=== PATIENT | female | born 1940 | race Caucasian/White ===

== ENCOUNTER 2021-04-20 10:30 | Inpatient (IN) | payer MEDICARE ==
[~2021-04-20] VITALS: Ht 167.7 cm; Wt 98.8 kg
[2021-04-20 10:30] VITALS: BP 117/82
[~2021-04-20 10:30] MED LIST: ALPRAZolam 0.25 MG (XANAX) TAB PO PRN; BISACODYL 10 MG SUPP (DULCOLAX) PR PRN; CALCIUM CARBONATE 500 MG (TUMS) TAB.CHEW PO PRN; DOCUSATE SODIUM 100 MG (COLACE) CAP PO PRN; FLEET ENEMA ADULT 1 EA BTL PR PRN; LACTULOSE SYRUP 10GM/15ML (ENULOSE) 30ML UDC PO PRN; LOPERAMIDE 2 MG (IMODIUM) TABLET PO PRN; MELATONIN 3 MG TABLET PO PRN; NALOXONE 0.4 MG/ML 1 ML (NARCAN) VIAL IV PRN; ONDANSETRON 4 MG (ZOFRAN) ORAL DISSOLVE TAB PO PRN; diphenhydrAMINE 25 MG TAB (BENADRYL) PO PRN; guaiFENesin/CODEINE (ROBITUSSIN AC) 10ML UDC PO PRN
[2021-04-20] MEDS: DOCUSATE SODIUM 100 MG (COLACE) CAP PO SCH ×2 (10:50→21:06)
[2021-04-20] MEDS: polyethylene glycoL POWDER 17 GM (MIRALAX) PACK PO SCH ×2 (10:50→21:08)
[2021-04-20] MEDS: SENNA W/DOCUSATE (SENOKOT S) TABLET PO SCH ×2 (10:51→21:06)
[2021-04-20] MEDS ORDERED: ATOR20TA66 PO (10:52)
[2021-04-20] MEDS ORDERED: INSU100V SQ (10:52)
[2021-04-20] MEDS ORDERED: WRF2.5T PO (10:52)
[2021-04-20] MEDS ORDERED: ALLO100T PO (10:52)
[2021-04-20] MEDS ORDERED: DILT120C82 PO (10:52)
[2021-04-20] MEDS ORDERED: ATEN25TA PO (10:52)
[2021-04-20] MEDS ORDERED: PIOG30TA38 PO (10:52)
[2021-04-20] MEDS ORDERED: MULT-166 PO (10:52)
--- NOTE | 2021-04-20 11:09 | PM&R Post Admission Assessment ---
PM&R Date of Visit: Apr 20, 2021 Time of Visit: 11:30 History of Present Illness CC: Critical illness myopathy HPI: This is an 80yoWF clinic Pt of Dr. Díaz and cardiology Dr. De who has a history of AFIB s/p gastrointestinal emergent surgery for perforated ulcer on 02/26/2021 at [facility] then transferred to [facility] due to slow recovery and now is requiring extensive rehab in order to return back to [facility]. I consulted Dr. Marshall for AFIB. She remains on Coumadin, her INR is 1.5 and I have consulted, Dr. Gamez since she still has a ADAIR drain and will need assistance with that. She does have a Cotto catheter DC right before arrival and if she cannot void we will consult urology. Past Dpexoev-Yfjqdz-Qrfakw Hx Past Med/Social Hx: Reviewed Nursing Past Med/Soc Hx, Reviewed and Corrections made Patient Social History Marrital Status: single Employed/Student: retired Alcohol Use: Denies Use Smoking Status: Former Smoker Past Medical History Surgeries: Abdominal Cardiac: Atrial Fibrillation, High Cholesterol, Hypertension Neurological: Neuropathy Gastrointestinal: Gastroesophageal Reflux Perforated ulcer Musculoskeletal: Arthritis, Chronic Back Pain, Gout Endocrine: Diabetes, Non-Insulin dep PM&R Allergy/Meds/Data Review Allergies Coded Allergies: Penicillins (Verified Allergy, Unknown, 04/20/21) Sulfa (Sulfonamide Antibiotics) (Verified Allergy, Unknown, 04/20/21) iodine (Verified Allergy, Unknown, 04/20/21) povidone-iodine (Verified Allergy, Unknown, 04/20/21) Home Medications Scheduled Allopurinol (Allopurinol), 100 MG PO DAILY, (Reported) Atenolol (Atenolol), 25 MG PO BID, (Reported) Atorvastatin Calcium (Atorvastatin Calcium), 20 MG PO HS, (Reported) Diltiazem HCl (Cardizem Cd), 120 MG PO DAILY, (Reported) Insulin Lispro (Humalog), UNIT SQ DAILY, (Reported) Multivitamin with Minerals (Multivitamins with Minerals), 1 EACH PO DAILY, (Reported) Pioglitazone HCl (Actos), 30 MG PO DAILY, (Reported) Warfarin Sodium (Warfarin Sodium), 2.5 MG PO 1700, (Reported) Current Medications Current Medications Reviewed Review of Systems Constitutional: see HPI, malaise, weakness EENTM: no symptoms reported Respiratory: dyspnea on exertion Cardiovascular: palpitations Gastrointestinal: abdominal pain, loss of appetite, nausea, vomiting Genitourinary: no symptoms reported Musculoskeletal: back pain, joint pain Skin: no symptoms reported Psychiatric/Neurological: Depressed All Other Systems Reviewed Negative Unless Noted: Yes Physical Exam Physical Exam Vital Signs Vital Signs - First Documented 04/20/21 10:30 Temp 36.1 Pulse 104 Resp 18 B/P (MAP) 117/82 (94) Pulse Ox 94 O2 Delivery Nasal Cannula O2 Flow Rate 0.50 Capillary Refill : Height, Weight, BMI Height: '" Weight: lbs. oz. kg; BMI Method: General Appearance: No Apparent Distress, WD/WN, Chronically ill Eyes: Bilateral Eye Normal Inspection, Bilateral Eye PERRL HEENT: PERRL/EOMI, Normal ENT Inspection, Pharynx Normal Neck: Full Range of Motion, Normal Inspection, Non Tender, Supple, Carotid Bruit Respiratory: Chest Non Tender, Lungs Clear, No Accessory Muscle Use, No Respiratory Distress, Decreased Breath Sounds Cardiovascular: No Edema, No Gallop, No JVD, No Murmur, Normal Peripheral Pulses, Irregularly Irregular, Tachycardia Gastrointestinal: Normal Bowel Sounds, No Organomegaly, No Pulsatile Mass, Soft, Tenderness Back: Normal Inspection, No CVA Tenderness, No Vertebral Tenderness Extremity: Normal Capillary Refill, Normal Inspection, Normal Range of Motion, Non Tender, No Calf Tenderness, No Pedal Edema Neurologic/Psychiatric: Alert, Oriented x3, No Motor/Sensory Deficits, Normal Mood/Affect, Abnormal Gait (Unable to ambulate), Motor Weakness (Generalized) Skin: Normal Color, Warm/Dry Lymphatic: No Adenopathy PM&R Medical Assessment & Plan REHAB/MEDICAL ASSESSMENT AND PLAN: REHAB IMPAIRMENT GROUP: Critical illness myopathy ETIOLOGIC DIAGNOSIS: Critical illness myopathy The comorbidities that impact the patients function and/or functional outcome by: Advanced age, atrial fibrillation not rate controlled, urinary retention REHAB PLAN: The patient is being admitted to our comprehensive inpatient rehabilitation facility and can tolerate the intensity of service consisting of at least: 180 minutes of therapy a day, 5 out of 7 days a week Rehab treatment will consist of: PT and OT will focus on regaining function with assistive devices in order to return to independent living with family The patient/family has a good understanding of our discharge process and will benefit from an interdisciplinary inpatient rehabilitation program. The patient has potential to make improvement and is in need of at least two of the following multidisciplinary therapies including but not limited to physical, occupational, speech, and prosthetics and orthotics. Additionally the patient will need services from respiratory, nutritional services, wound care, psychology, etc. (Customize this to each patient). Given the patients complex condition and risk of further medical complications, rehabilitation services cannot be safely or effectively provided at a lower level of care such as a halfway facility. BARRIERS TO DISCHARGE: Advanced age ESTIMATED LOS: 14 days DISPOSITION: Home RELEVANT CHANGES SINCE PREADMISSION SCREENING: I have compared the patients medical and functional status at the time of the preadmission screening and there are: No changes PROGNOSIS: Guarded REHABILITATION GOALS: 1. PT and OT will focus on regaining function with assistive devices in order to return to independent living with family All the above goals were reviewed with the patient and he/she is in agreement. By signing this document, I acknowledge that I have personally performed a full physical examination on this patient within 24 hours of admission to this inpatient rehabilitation facility and have determined the patient to be able to tolerate the above course of treatment at an intensive level for a reasonable period of time. I will be completing a detailed individualized Plan of Care for this patient by day #4 of the patients stay based upon the Preadmission Screen, the Post-Admission Evaluation, and the therapy evaluations. Admission Dx/Comorbidities: (1) Gastric ulcer with perforation ICD Codes: K25.5 - Chronic or unspecified gastric ulcer with perforation (2) Atrial fibrillation ICD Codes: I48.91 - Unspecified atrial fibrillation (3) Warfarin anticoagulation ICD Codes: Z79.01 - terminal gauger (current) use of anticoagulants (4) Urinary retention ICD Codes: R33.9 - Retention of urine, unspecified (5) Diabetes ICD Codes: E11.9 - Type 2 diabetes mellitus without complications (6) Myopathy ICD Codes: G72.9 - Myopathy, unspecified Assessment/Plan Assessment and Plan Assess & Plan/Chief Complaint Assessment: Critical illness myopathy Chronic atrial fibrillation not rate controlled consulting Dr. Marshall Urinary retention likely requiring urology consult if cannot void since Cotto catheter DC at [facility] ADAIR drain in place consulting Dr. Gamez Subtherapeutic INR 1.5 Coumadin anticoagulation Plan: Supportive care Rehab protocol Consult Dr. Gamez Consult Dr. Marshall Consult JARON Mckeon DO Apr 20, 2021 11:09
--- NOTE | 2021-04-20 12:52 | Physical Therapy Evaluation ---
PT Evaluation-General Medical Diagnosis Admission Date Apr 20, 2021 at 10:30 Medical Diagnosis: perforated gastric ulcer Onset Date: Feb 26, 2021 Therapy Diagnosis Therapy Diagnosis: impaired mobility, strength, endurance Precautions Precautions/Isolations: Fall Prevention, Standard Precautions, Pressure Ulcer Referral Physician: Shanna Fairchild DO Reason for Referral: Evaluation/Treatment Medical History Pertinent Medical History: Atrial Fib, Arthritis, DM, HTN, Renal Insufficiency Additional Medical History HLP, back surgery, cardioversion Current History 02/26/21 admitted to OSH with abdominal pain, found to have perforated gastric ulcer, repair of ulcer same day. Pt noted to have afib with RVR. 03/02 gastrograffin test showed anastamotic leak. Pt NPO and TPN with continued leak. Serial CTs performed and leak closed. Regular diet resumed and TPN discontinued. Hospital course c/b yeast UTI. Pt transferred to LTAC for therapy services. Pt then transferred to [facility] 04/20/21 for continued skilled therapies and medication management. Reviewed History: Yes Social History Home: Single Level Current Living Status: Children Entry Into Home: Stairs Without Railing PT Steps Into Home: 2 PT Steps Inside Home: 2 Prior Prior Level of Function SCALE: Activities may be completed with or without assistive devices. 3-Ecywfaomcm-wwvfhch completes the activity by him/herself with no assistance from a helper. 5-Set-up or Clean-up Assistance-helper sets up or cleans up; patient completes activity. [place] assists only prior to or following the activity. 4-Supervision or Touching Assistance-helper provides verbal cues and/or touching/steadying and/or contact guard assistance as patient completes activity. Assistance may be provided throughout the activity or intermittently. 3-Partial/Moderate Assistance-helper does LESS THAN HALF the effort. [place] lifts, holds or supports trunk or limbs, but provides less than half the effort. 2-Substantial/Maximal Assistance-helper does MORE THAN HALF the effort. [place] lifts or holds trunk or limbs and provides more than half the effort. 8-Tgobxnlhj-jylgqh does ALL the effort. Patient does none of the effort to complete the activity. Or, the assistance of 2 or more helpers is required for the patient to complete the activity. If activity was not attempted, code reason: 7-Patient Refused. 9-Not Applicable-not attempted and the patient did not perform the activity before the current illness, exacerbation or injury. 10-Not Attempted due to Environmental Limitations-(lack of equipment, weather restraints, etc.). 88-Not Attempted due to Medical Conditions or Safety Concerns. Bed Mobility: 6 Transfers (B,C,W/C): 6 Gait: 6 Stairs: 6 Indoor Mobility (Ambulation): Independent Stairs: Independent used a 4-wheeled walker PT Evaluation-Current Subjective Patient in recliner pre tx, agrees to PT, has no pain at rest. Will be co- treating with OT due to poor patient mobility, strength, endurance, knee buckling, coordinate UE and LE during activity, safety and reduce risk of falls. Pt/Family Goals to be independent at home Objective Patient Orientation: Person, Place, Situation Attachments: Oxygen, Drains ROM/Strength ROM Lower Extremities WNL Strength Lower Extremities LLE (hip flexion 3/5, knee flexion 3+/5, knee extension 3+/5, dorsiflexion 3+/5), RLE (hip flexion 3+/5, knee flexion 4/5, knee extension 4/5, dorsiflexion 4/5) Sensory Vision: Functional Hearing: Functional Sensation Right Lower Extremit: Impaired Sensation Left Lower Extremity: Impaired Transfers Roll Left & Right (QC): 4 Sit to Lying (QC): 3 Lying to Sitting/Side of Bed(Q: 3 Sit to Stand (QC): 2 Chair/Wxz-li-Ugmia Xfer(QC): 4 Toilet Transfer (QC): 4 Car Transfer (QC): 88 Patient performs rolling with SBA, supine <-> sit min assist, sit <-> stand max assist, transfers CGA, patient is not safe to perform a car transfer at this time. Patient needs frequent cues for hand placement and safety. She has poor trunk strength and slumps, especially with sit <-> stand. Gait Does the Patient Walk?: Yes Mode of Locomotion: Walk Anticipated Mode of Locomotion: Walk Walk 10 feet (QC): 3 Walk 50 ft with 2 Turns(QC): 88 Walk 150 ft (QC): 88 Walking 10ft/uneven surface-QC: 88 Distance: 10' Gait Assistive Device: FWW Comments/Gait Description Patient can ambulate 10' with a rolling walker with min assist. She has slumped posture, very slow ambulation, knees on the verge of buckling, WC follow. Wheelchair Training Does the Pt Use a Wheelchair?: Yes Distance: 100' Wheel 50 ft with 2 turns (QC): 3 Wheel 150 ft (QC): 88 Type of Wheelchair: Manual Stairs 1 Step (curb) (QC): 88 4 Steps (QC): 88 12 Steps (QC): 88 Balance Sitting Static: Normal Sitting Dynamic: Normal Standing Static: Poor Standing Dynamic: Poor Picking up an Object (QC): 88 Treatment PT performed bed mobility and transfers, ambulation, WC mobility, standing and safety during toileting and bathing and dressing and ADL's, OT performed dressing, toileting, bathing, ADL', UE positioning and safety during activity Assessment/Needs Patient in recliner post tx with nurse call, phone, tray, all needs met. Patient has impaired mobility, strength, endurance. Patient needs max assist for sit to stand but can perform a transfer with CGA using a rolling walker after that. Rehab Potential: Fair PT Short Term Goals Short Term Goals Time Frame: Apr 27, 2021 Roll Left & Right: 6 Sit to lyin Lying to sitting on side of be: 4 Sit to stand: 3 Chair/piy-di-eshpf transfer: 4 Walk 10 feet: 4 Walk 50 feet with two turns: 3 PT Senior Living Goals Desktop Support Specialist Goals PT Desktop Support Specialist Goals Time Frame: May 11, 2021 Roll Left & Right (QC): 6 Sit to Lying (QC): 4 Lying-Sitting on Side/Bed(QC): 5 Sit to Stand (QC): 4 Chair/Mii-fn-Wdpxt Xfer(QC): 5 Toilet Transfer (QC): 5 Car Transfer (QC): 4 Does the Patient Walk: Yes Walk 10 feet (QC): 4 Walk 50ft with 2 Turns (QC): 4 Walk 150 ft (QC): 4 Walking 10ft on Uneven Surface: 4 1 Step (curb) (QC): 4 4 Steps (QC): 4 12 Steps (QC): 88 Picking up an Object (QC): 4 Wheel 50 feet with 2 turns (QC: 9 Wheel 150 feet: 9 PT Plan Problem List Problem List: Activity Tolerance, Functional Strength, Safety, Balance, Gait, Transfer, Bed Mobility, ROM Treatment/Plan Treatment Plan: Continue Plan of Care Treatment Plan: Bed Mobility, Education, Functional Activity Karley, Functional Strength, Group Therapy, Gait, Safety, Therapeutic Exercise, Transfers Treatment Duration: May 11, 2021 Frequency: At least 5 of 7 days/Wk (IRF) Estimated Hrs Per Day: 1.5 hours per day Patient and/or Family Agrees t: Yes Safety Risks/Education Patient Education: Gait Training, Transfer Techniques, Correct Positioning, W/C Management, Safety Issues Teaching Recipient: Patient Teaching Methods: Demonstration, Discussion Response to Teaching: Reinforcement Needed Discharge Recommendations Plan Patient will perform bed mobility and transfer training, balance and endurance training, functional strengthening, stair training, gait training, and education to improve functional mobility and independence at home. Therapy Discharge Recommendati: Scheduled Assistance, Home & Family, Post Acute PT Time/GCodes Time In: 1050 Time Out: 1200 Total Billed Treatment Time: 70 Total Billed Treatment 1 visit EVM 10' FA 60' PT eval from [id number], co-treat from [id number] WALLACE ROD PT Apr 20, 2021 12:52
--- NOTE | 2021-04-20 12:55 | Occupational Therapy Eval ---
OT Evaluation-General/PLF Medical Diagnosis Admission Date Apr 20, 2021 at 10:30 Medical Diagnosis: disuse myopathy Onset Date: Feb 26, 2021 Therapy Diagnosis Therapy Diagnosis: decreased ADL status, weakness Precautions Precautions/Isolations: Fall Prevention, Standard Precautions, Pressure Ulcer Referral Physician: Devorah Cruz Reason: Evaluation/Treatment Medical History Pertinent Medical History: Atrial Fib, Arthritis, DM, HTN, Renal Insufficiency Additional Medical History HLP, back surgery, cardioversion Current History 02/26/21 admitted to OSH with abdominal pain, found to have perforated gastric ulcer, repair of ulcer same day. Pt noted to have afib with RVR. 03/02 gastrograffin test showed anastamotic leak. Pt NPO and TPN with continued leak. Serial CTs performed and leak closed. Regular diet resumed and TPN discontinued. Hospital course c/b yeast UTI. Pt transferred to LTAC for therapy services. Pt then transferred to [facility] 04/20/21 for continued skilled therapies and medication management. Social History Home: Single Level Current Living Status: Children (daughter and son in law & their kids.) Steps Into Home: 2 Steps Inside Home: 2 ADL-Prior Level of Function SCALE: Activities may be completed with or without assistive devices. 5-Hagnttdeyb-vwhtheh completes the activity by him/herself with no assistance from a helper. 5-Set-up or Clean-up Assistance-helper sets up or cleans up; patient completes activity. [place] assists only prior to or following the activity. 4-Supervision or Touching Assistance-helper provides verbal cues and/or touching/steadying and/or contact guard assistance as patient completes activity. Assistance may be provided throughout the activity or intermittently. 3-Partial/Moderate Assistance-helper does LESS THAN HALF the effort. [place] lifts, holds or supports trunk or limbs, but provides less than half the effort. 2-Substantial/Maximal Assistance-helper does MORE THAN HALF the effort. [place] lifts or holds trunk or limbs and provides more than half the effort. 9-Ptsjifqyv-dulsqa does ALL the effort. Patient does none of the effort to complete the activity. Or, the assistance of 2 or more helpers is required for the patient to complete the activity. If activity was not attempted, code reason: 7-Patient Refused. 9-Not Applicable-not attempted and the patient did not perform the activity before the current illness, exacerbation or injury. 10-Not Attempted due to Environmental Limitations-(lack of equipment, weather restraints, etc.). 88-Not Attempted due to Medical Conditions or Safety Concerns. ADL PLOF Comments Pt states she was independent with ADLs and functional mobility at [facility], using 4WW. Upon further discussion, pt reports she was unable to don/doff socks, and sometimes required assistance with shoes. Pt able to bathe independently, in order to wash her feet, she put a soapy washcloth on the floor of the shower and rubbed her feet over the washcloth. She reports she was able to dress and toilet herself. She just received a manual w/c, has only sat in it a couple of times for a few seconds each time. Pt states this w/c is too wide to get through her doors and she would like to exchange it for a narrower w/c. She has a walk in shower with a SC, she reports the shower leaks and they are in the process of getting this fixed/replacing the shower. Self Care: Needed Some Help Functional Cognition: Independent DME/Equipment: Bath Chair, Shower DME/Equipment Comments 4WW, manual w/c (wide) OT Current Status Subjective Pt arrived via w/c transport to floor, pt agreeable to OT tx. Mental Status/Objective Patient Orientation: Person, Place, Situation Attachments: Drains, Oxygen (0.5 L NC) Current Glasses/Contacts: Yes Hearing Aids: No Dentures/Partials: No Hand Dominance: Right Upper Extremity ROM Decreased shoulder ROM Bilaterally. RUE shoulder flexion to approx 30 degrees, LUE shoulder flexion to approx 10 degrees. Pt correlates decreased motion with arthritis. WFL at elbows/wrists/hands. Upper Extremity Strength grossly 3/5 ADL-Treatment Eating (QC): 5 (Set up assist per pt report.) Oral Hygiene (QC): 6 (IND seated at sink.) Shower/Bathe Self (QC): 2 (Pt able to wash BUEs, chest/abdomen, thighs. Required assistance with buttocks, periarea, and BLE lower legs/feet.) Upper Body Dressing (QC): 4 (SBA, pt able to don/doff toe puller night gown with increased time.) Lower Body Dressing (QC): 2 (Pt able to thread brief over toes on RLE, assist to thread past heel. Assist to thread LLE and assist with pant hike. Max A sit to stand for pant hike.) On/Off Footwear (QC): 1 (assist donning/doffing socks and shoes.) Toileting Hygiene (QC): 1 (assist with all parts.) Other Treatments Pt arrived to floor via w/c transport. Performed SPT from w/c to recliner, max A sit to stand, then CGA once in standing. OT educated pt on purpose and benefit of OT, then pt provided information about PLOF and home set up. OT/PT cotreat due to skill of 2 clinicians required which a tablet technician could not perform in order to coordinate UE/LEs, decrease fall risk, and due to pt's limitations in strength, mobility, transfers, and activity tolerance. OT focused on UE placement, cues for sequencing and safety, and ADLs, PT focused on LE placement, gross overall movement, and transfers/mobility. Pt stood from recliner, used FWW to ambulate towards doorway, pt states she is too fatigued to make it to the door, only able to make it to the foot of the bed before sitting in w/c. Pt propelled w/c to therapy gym, with assistance. Pt completed functional transfers in gym on/off therapy mat and supine <-> sit. Pt returned to her room, completed sponge bath and dressing at sink. Once standing to wash buttocks, pt requests BSC. W/C removed from underneath pt and replaced with commode, pt sat on commode to complete toileting. Pt stood for hygiene and to manage pants up, commode switched out for w/c. Pt sat at sink for oral care, then used FWW to transfer to recliner. PT left tx at this time. OT educated pt on rehab process and expectations, explained the dietary menu, and positioned pt to comfort. Post tx, pt in recliner, call light in reach and all needs met. SBA rolling, min A supine <-> sit, max A sit <-> stand, CGA transfers. Patient needs frequent cues for hand placement and safety. She has poor trunk strength and slumps, especially with sit <-> stand. Education OT Patient Education: Correct positioning, Energy conservation, Exercise program, Modified ADL techniques, Progress toward Goal/Update tx plan, Purpose of tx/functional activities, Rehab process Teaching Recipient: Patient Teaching Methods: Discussion OT Short Term Goals Short Term Goals Time Frame: May 05, 2021 Toileting hygiene: 3 Shower/bathe self: 3 Lower body dressin Putting on/taking off footwear: 3 OT Retirement Goals Cloth Desizing Range Operator Chief Goals Time Frame: May 14, 2021 Eating (QC): 6 Oral Hygiene (QC): 6 Toileting Hygiene (QC): 6 Shower/Bathe Self (QC): 5 Upper Body Dressing (QC): 5 Lower Body Dressing (QC): 4 On/Off Footwear (QC): 4 Additional Goals: 1-Demonstrate ADL Tasks, 2-Verbalize Understanding, 3- ImproveStrength/Karley 1=Demonstrate adherence to instructed precautions during ADL tasks. 2=Patient will verbalize/demonstrate understanding of assistive devices/modifications for ADL. 3=Patient will improve strength/tolerance for activity to enable patient to perform ADL's. OT Education/Plan Problem List/Assessment Assessment: Decreased Activ Tolerance, Decreased UE Strength, Impaired Funct Balance, Impaired I ADL's, Impaired Self-Care Skills, Restricted Funct UE ROM Discharge Recommendations Plan/Recommendations: Continue POC Treatment Plan/Plan of Care Patient would benefit from OT for education, treatment and training to promote independence in ADL's, mobility, safety and/or upper extremity function for ADL's. Plan of Care: ADL Retraining, Functional Mobility, Group Exercise/Act as Ind, UE Funct Exercise/Act Treatment Duration: May 14, 2021 Frequency: At least 5 of 7 days/Wk (IRF) Estimated Hrs Per Day: 1.5 hours per day Agreement: Yes Rehab Potential: Fair Time/GCodes Start Time: 10:30 Stop Time: 12:10 Total Time Billed (hr/min): 90 Billed Treatment Time [id number] OT evaluation/tx, 9900-2590 PT eval (not billed), [id number] OT/PT cotreat, 1371-0028 OT tx 1, EVM (10'), FA 2 (30'), ADL 3 (50') VANNESA PATEL OT Apr 20, 2021 12:55
[2021-04-20] MEDS ORDERED: dilTIAZem120 MG (CARDIZEM CD) CAP PO SCH (13:15)
--- NOTE | 2021-04-20 13:22 | Physical Therapy Daily Note ---
PT Daily Note-Current Subjective Pt. very talkative. Explains her recent medical crisis. Feeling well today. Agrees to therex Pain Location: No Pain Reported Mental Status Patient Orientation: Person, Place, Time, Situation Attachments: Oxygen Transfers SCALE: Activities may be completed with or without assistive devices. 3-Oanlgoiimh-hmbudvv completes the activity by him/herself with no assistance from a helper. 5-Set-up or Clean-up Assistance-helper sets up or cleans up; patient completes activity. [place] assists only prior to or following the activity. 4-Supervision or Touching Assistance-helper provides verbal cues and/or touching/steadying and/or contact guard assistance as patient completes activity. Assistance may be provided throughout the activity or intermittently. 3-Partial/Moderate Assistance-helper does LESS THAN HALF the effort. [place] lifts, holds or supports trunk or limbs, but provides less than half the effort. 2-Substantial/Maximal Assistance-helper does MORE THAN HALF the effort. [place] lifts or holds trunk or limbs and provides more than half the effort. 2-Ctczydlha-ucrtgg does ALL the effort. Patient does none of the effort to complete the activity. Or, the assistance of 2 or more helpers is required for the patient to complete the activity. If activity was not attempted, code reason: 7-Patient Refused. 9-Not Applicable-not attempted and the patient did not perform the activity before the current illness, exacerbation or injury. 10-Not Attempted due to Environmental Limitations-(lack of equipment, weather restraints, etc.). 88-Not Attempted due to Medical Conditions or Safety Concerns. pt. scooted self up in recliner with head reclined fully pushing with LEs Exercises Supine Ex: Bridging, Ankle pumps, Quad Set, Glut sets, Heel Slides, Scooting, Straight leg raise (asssited), Hip abd/add Supine Reps: 15 Assessment Current Status: Good Progress gives full effort , friendly and talkative PT Short Term Goals Short Term Goals Time Frame: Apr 27, 2021 Roll Left & Right: 6 Sit to lyin Lying to sitting on side of be: 4 Sit to stand: 3 Chair/jhz-me-vsqql transfer: 4 Walk 10 feet: 4 Walk 50 feet with two turns: 3 PT Rose Grader Goals Rose Grader Goals PT Detention Goals Time Frame: May 11, 2021 Roll Left & Right (QC): 6 Sit to Lying (QC): 4 Lying-Sitting on Side/Bed(QC): 5 Sit to Stand (QC): 4 Chair/Tyx-be-Wwfsb Xfer(QC): 5 Toilet Transfer (QC): 5 Car Transfer (QC): 4 Does the Patient Walk: Yes Walk 10 feet (QC): 4 Walk 50ft with 2 Turns (QC): 4 Walk 150 ft (QC): 4 Walking 10ft on Uneven Surface: 4 1 Step (curb) (QC): 4 4 Steps (QC): 4 12 Steps (QC): 88 Picking up an Object (QC): 4 Wheel 50 feet with 2 turns (QC: 9 Wheel 150 feet: 9 PT Plan Treatment/Plan Treatment Plan: Continue Plan of Care Treatment Plan: Bed Mobility, Education, Functional Activity Karley, Functional Strength, Group Therapy, Gait, Safety, Therapeutic Exercise, Transfers Treatment Duration: May 11, 2021 Frequency: At least 5 of 7 days/Wk (IRF) Estimated Hrs Per Day: 1.5 hours per day Patient and/or Family Agrees t: Yes Safety Risks/Education Patient Education: Correct Positioning, Disease Process Teaching Recipient: Patient Teaching Methods: Discussion Time/GCodes Time In: 1305 Time Out: 1325 Total Billed Treatment Time: 20 Total Billed Treatment 1,EX20m SUMAYA FLORES RN GYN Apr 20, 2021 13:21
--- NOTE | 2021-04-20 14:00 | Progress Note ---
CHEIKH SMITH MED STUDENT 04/20/21 1400: Progress Note CC- S/P abdominal surgery/Rehab Mrs Garcia is an 80yo female that was transferred to the rehab unit today from [facility] in [place]. She states that on 9 she had to have surgery to repair a perforated ulcer in her stomach. She states that the recovery process was very complicated for her. She has been doing rehab in [place] was was transferred to [facility] today to get more vigorous rehab. She states that rehab has been going well for her, she has been gaining strength and can tell she has improved. She guesses she is probably about at 1/3 of her strength before the surgery. She denies any problems with eating. She does state that she is somewhat prone to constipation and had to have manual disimpaction with enema at the previous facility. She states that she has been taking stool softeners and prune juice, which has helped and she has not had an issue since. LBM this morning. She denies any pains or associated symptoms today, states her surgical wounds are healing well. She states she is just ready to get though rehab so she can go home. She lives at home with her daughter and son in law. They can help take care of her but they are gone quite often. She does not have any home health. She gets around her home with a walker with a seat. She does not use oxygen at home. She dose not have any concerns or questions today. Medical Hx- States she is a diabetic and is in peristant afib Surgical Hx- 2x Perforated ulcer repair, L leg screws, 2 Lower back surgeries, tonsils Social-Not a smoker, rarely drinks a beer, no street drugs Allergies-Iodine, penecillin Vitals: Temp 31.6c Pulse 104 Blood Pressure 117/82 Pulse Ox 94 on 0.5 L Nasal Cannula No labs or imaging results available Physical Exam General appearance is an elderly woman sitting up in her chair. She appears to be in good spirits and is in no distress. Very pleasant. She has moist mucus membranes. Auscultation of lungs is clear breath sounds bilateraly with no wheezing or other abnormal sounds. Heart sounds regular rate and rythym with no murmurs. No chest wall tenderness. Abdomen is soft and nontender with normal bowel sounds throughout, healing scars from surgery. Normal pulses on all 4 extremities. Slight 1+ edema of legs. She does not have any other rashes. She is alert and oriented x3. A/P S/P Perforated ulcer repair/Rehab -Continue rehab, PT,OT, -Labs if indicated -Social work may be required if patient needs additional help at home at time of release -Watch surgical wounds to ensure that there is no sign of infection or other problems -Stool softener and Prune juice to help prevent constipation -Patient has no other concerns -Continue regular medications Supervisory-Addendum Brief Verification & Attestation Participated in pt care: history, physical Personally performed: exam, history Care discussed with: Medical Student Procedures: n/a n/a SHANNA BRANNON DO 04/21/21 0616: Progress Note Verification and Attestation of Medical Student E/M Service A medical student performed and documented this service in my presence. I reviewed and verified all information documented by the medical student and made modifications to such information, when appropriate. I personally performed the physical exam and medical decision making. Shanna Brannon, Apr 21, 2021,06:16 CHEIKH SMITH MED STUDENT Apr 20, 2021 14:00 SHANNA BRANNON DO Apr 21, 2021 06:16
--- NOTE | 2021-04-20 14:52 | Consultation - Surgery ---
NICOLÁS LEON MED STUDENT 04/20/21 1452: History of Present Illness History of Present Illness Patient Consulted On(jimmy/time) 04/20/21 14:46 Date Seen by Provider: Apr 20, 2021 Time Seen by Provider: 13:30 History of Present Illness This is Zachery a 80 yo female with the chief complaint of diffuse myopathy. Pt presented to inpatient rehab from [facility] today. Surgery was consulted for management of ADAIR drain. She has a perforated gastric ulcer repair on February 26 at [facility]. 2 ADAIR drains were inserted at the end of surgery but the one in the LUQ has since fallen out. Pt denies any issues with the remaining ADAIR drain in RUQ. It continues to drain. The drain was emptied before entering the room but had about 30ml of serous fluid over a half day period. Pt lives at home with her daughters family. Allergies and Home Medications Allergies Coded Allergies: Penicillins (Verified Allergy, Unknown, 04/20/21) Sulfa (Sulfonamide Antibiotics) (Verified Allergy, Unknown, 04/20/21) iodine (Verified Allergy, Unknown, 04/20/21) povidone-iodine (Verified Allergy, Unknown, 04/20/21) Patient Home Medication List Allopurinol (Allopurinol) 100 Mg Tablet, 100 MG PO DAILY, (Reported) Entered as Reported by: BEN ENNIS on 04/20/211051 Last Action: Continued Atenolol (Atenolol) 25 Mg Tablet, 25 MG PO BID, (Reported) Entered as Reported by: BEN ENNIS on 04/20/211051 Last Action: Continued Atorvastatin Calcium (Atorvastatin Calcium) 20 Mg Tablet, 20 MG PO HS, (Reported) Entered as Reported by: BEN ENNIS on 04/20/211051 Last Action: Continued Diltiazem HCl (Cardizem Cd) 120 Mg Cap.er.24h, 120 MG PO DAILY, (Reported) Entered as Reported by: BEN ENNIS on 04/20/211051 Last Action: Continued Insulin Lispro (Humalog) 100 Unit/1 Ml Vial, UNIT SQ DAILY, (Reported) Entered as Reported by: BEN ENNIS on 04/20/211051 Last Action: Held Multivitamin with Minerals (Multivitamins with Minerals) 1 Each Tablet, 1 EACH PO DAILY, (Reported) Entered as Reported by: BEN ENNIS on 04/20/211051 Last Action: Continued Pioglitazone HCl (Actos) 30 Mg Tablet, 30 MG PO DAILY, (Reported) Entered as Reported by: BEN ENNIS on 04/20/211051 Last Action: Continued Warfarin Sodium (Warfarin Sodium) 2.5 Mg Tablet, 2.5 MG PO 1700, (Reported) Entered as Reported by: BEN ENNIS on 04/20/211051 Last Action: Continued Past Cyxmufz-Rquvrk-Pyloir Hx Patient Social History Smoking Status: Never a Smoker 2nd Hand Smoke Exposure: No Recent Hopitalizations: Yes ([facility] to [place]) Alcohol Use?: No Have you traveled recently?: No Immunizations Up To Date Date of Influenza Vaccine: Mar 18, 2021 Surgeries Surgeries: Abdominal (gastric ulcer perforation), Cardiac (converted afib), Orthopedic (left leg fracture with hardware, 2 open spinal surgeries), Tonsillectomy Respiratory History of Respiratory Disorde: No Cardiovascular History of Cardiac Disorders: Yes Cardiac Disorders: Atrial Fibrillation, High Cholesterol Neurological History of Neurological Disord: No Genitourinary History of Genitourinary Disor: No Gastrointestinal History of Gastrointestinal Di: No Musculoskeletal History of Musculoskeletal Dis: Yes Musculoskeletal Disorders: Arthritis, Gout Endocrine History of Endocrine Disorders: Yes Endocrine Disorders: Diabetes, Insulin dep HEENT History of HEENT Disorders: No Loss of Vision: Bilateral Cancer History of Cancer: No Psychosocial History of Psychiatric Problem: No Integumentary History of Skin or Integumenta: No Family Medical History Significant Family History: Cancer (dad), Diabetes (dad and mom) Review of Systems-General Constitutional: chills; No diaphoresis, No fever; weakness; No weight gain, No weight loss EENTM: blurred vision; No double vision, No eye pain, No hoarseness, No mouth pain, No nose pain, No throat pain Respiratory: No cough; dyspnea on exertion; No short of breath Cardiovascular: No chest pain, No edema; Hx of Intervention; No palpitations Gastrointestinal: No abdominal pain, No constipation, No diarrhea, No melena, No nausea, No vomiting; other (history of hemorrhiods ) Genitourinary: No decreased output, No discharge, No dysuria, No frequency, No hematuria, No pain Musculoskeletal: joint pain (left shoulder-chronic) Skin: No change in color, No rash; other Psychiatric/Neurological: Denies Anxiety, Denies Depressed, Denies Emotional Problems, Denies Headache; Weakness Physical Exam-General Problems Physical Exam Vital Signs Vital Signs - First Documented 04/20/21 10:30 Temp 36.1 Pulse 104 Resp 18 B/P (MAP) 117/82 (94) Pulse Ox 94 O2 Delivery Nasal Cannula O2 Flow Rate 0.50 Capillary Refill : General Appearance: no apparent distress HEENT: PERRL/EOMI, pharynx normal Neck: non-tender, supple, normal inspection Respiratory: chest non-tender, lungs clear, normal breath sounds, no respiratory distress, no accessory muscle use Cardiovascular: normal peripheral pulses, no edema, irregularly irregular Gastrointestinal: non tender, soft Rectal: deferred Back: normal inspection, no CVA tenderness, no vertebral tenderness Extremities: normal inspection, no pedal edema, calf tenderness Neurologic/Psychiatric: no motor/sensory deficits, alert, normal mood/affect, oriented x 3 Skin: normal color, warm/dry, other (midline scar from surgical repair as well as scar from ADAIR drain on left side that fell out) Lymphatic: no adenopathy (cervical and supraclavicular) Assessment/Plan Assessment/Plan Assessment/Plan Assessment: functional ADAIR drain in LUQ diffues myopathy chronic right shoulder pain Plan: monitor ADAIR drain for change in content or amount change bandaging and dressing often encourage ambulation ADAM PANDEY DO 04/20/21 2148: History of Present Illness History of Present Illness Time Seen by Provider: 12:31 History of Present Illness Surgery asked to consult regarding drain management, hx of gastric perforation and abdominal dehiscence. Pt is a very pleasant 80 yo female, able to answer all questions. She states she had to "swallow contrast 8 times". Denies drainage from midline, states it still is moist. Allergies and Home Medications Allergies Coded Allergies: Penicillins (Verified Allergy, Unknown, 04/20/21) Sulfa (Sulfonamide Antibiotics) (Verified Allergy, Unknown, 04/20/21) iodine (Verified Allergy, Unknown, 04/20/21) povidone-iodine (Verified Allergy, Unknown, 04/20/21) Patient Home Medication List Home Medication List Reviewed: Yes Allopurinol (Allopurinol) 100 Mg Tablet, 100 MG PO DAILY, (Reported) Entered as Reported by: BEN ENNIS on 04/20/211051 Last Action: Continued Atenolol (Atenolol) 25 Mg Tablet, 25 MG PO BID, (Reported) Entered as Reported by: BEN ENNIS on 04/20/211051 Last Action: Continued Atorvastatin Calcium (Atorvastatin Calcium) 20 Mg Tablet, 20 MG PO HS, (Repo rted) Entered as Reported by: BEN ENNIS on 04/20/211051 Last Action: Continued Diltiazem HCl (Cardizem Cd) 120 Mg Cap.er.24h, 120 MG PO DAILY, (Reported) Entered as Reported by: BEN ENNIS on 04/20/211051 Last Action: Continued Insulin Lispro (Humalog) 100 Unit/1 Ml Vial, UNIT SQ DAILY, (Reported) Entered as Reported by: BEN ENNIS on 04/20/211051 Last Action: Held Multivitamin with Minerals (Multivitamins with Minerals) 1 Each Tablet, 1 EACH PO DAILY, (Reported) Entered as Reported by: BEN ENNIS on 04/20/211051 Last Action: Continued Pioglitazone HCl (Actos) 30 Mg Tablet, 30 MG PO DAILY, (Reported) Entered as Reported by: BEN ENNIS on 04/20/211051 Last Action: Continued Warfarin Sodium (Warfarin Sodium) 2.5 Mg Tablet, 2.5 MG PO 1700, (Reported) Entered as Reported by: BEN ENNIS on 04/20/211051 Last Action: Continued Past Kleljns-Myzlcf-Rltall Hx Patient Social History Smoking Status: Never a Smoker 2nd Hand Smoke Exposure: No Recent Hopitalizations: Yes ([facility] to [place]) Surgeries History of Surgeries: Yes Surgeries: Abdominal (gastric ulcer perforation), Cardiac (converted afib), Orthopedic (left leg fracture with hardware, 2 open spinal surgeries), Tonsillectomy Respiratory History of Respiratory Disorde: No Cardiovascular History of Cardiac Disorders: Yes Cardiac Disorders: Atrial Fibrillation, High Cholesterol Neurological History of Neurological Disord: No Genitourinary History of Genitourinary Disor: No Gastrointestinal History of Gastrointestinal Di: Yes Gastrointestinal Disorders: Gastroesophageal Reflux, Ulcer Musculoskeletal History of Musculoskeletal Dis: Yes Musculoskeletal Disorders: Arthritis, Gout Endocrine History of Endocrine Disorders: Yes Endocrine Disorders: Diabetes, Insulin dep HEENT History of HEENT Disorders: No Loss of Vision: Bilateral Cancer History of Cancer: No Psychosocial History of Psychiatric Problem: No Integumentary History of Skin or Integumenta: No Family Medical History Significant Family History: Cancer (dad), Diabetes (dad and mom) Review of Systems-General Constitutional: chills; No diaphoresis, No fever; weakness EENTM: blurred vision; No double vision, No hoarseness, No mouth pain, No nose pain, No throat pain Respiratory: No cough; dyspnea on exertion; No short of breath Cardiovascular: No chest pain, No edema; Hx of Intervention; No palpitations Gastrointestinal: No abdominal pain, No constipation, No diarrhea, No melena, No nausea, No vomiting Genitourinary: No decreased output, No dysuria, No frequency, No hematuria Musculoskeletal: joint pain (left shoulder-chronic), muscle stiffness Skin: No change in color, No rash Psychiatric/Neurological: Denies Anxiety, Denies Depressed, Denies Emotional Problems, Denies Headache; Weakness Physical Exam-General Problems Physical Exam General Appearance: no apparent distress, thin (chronically ill) Eyes: Bilateral Eye PERRL, Bilateral Eye EOMI HEENT: pharynx normal; No scleral icterus (R), No scleral icterus (L) Neck: supple, normal inspection Respiratory: lungs clear, normal breath sounds, no respiratory distress, no accessory muscle use Cardiovascular: no edema, no murmur, irregularly irregular Gastrointestinal: non tender, soft, other (midline incision has good granulation at skin level, ADAIR drain right flank with serous fluid) Back: no CVA tenderness, no vertebral tenderness Extremities: normal inspection, no pedal edema, calf tenderness Neurologic/Psychiatric: alert, normal mood/affect, oriented x 3 Skin: normal color, warm/dry, other Lymphatic: no adenopathy (cervical and supraclavicular) Assessment/Plan Assessment/Plan Assessment/Plan Assessment: Functional ADAIR drain in LUQ Diffuse myopathy Chronic right shoulder pain Plan: monitor ADAIR drain for change in content or amount, change bandaging and dressing often, encourage ambulation Will try and get old films, op reports to make sure everything is ok. Almost ready to remove ADAIR if it can get to less than 30ml per 24 hours. Supervisory-Addendum Brief Verification & Attestation Participated in pt care: history, MDM, physical Personally performed: exam, history, MDM, supervision of care Care discussed with: Medical Student Procedures: n/a Verification and Attestation of Medical Student E/M Service A medical student performed and documented this service. I then reviewed and verified all information documented by the medical student and made modifications to such information, when appropriate. I personally performed a physical exam, medical decision making and then discussed any differences between the notes and made revisions as necessary to create one note. Adam Pandey , 04/20/21 , 21:57 NICOLÁS LEON MED STUDENT Apr 20, 2021 14:52 ADAM PANDEY DO Apr 20, 2021 21:48
--- NOTE | 2021-04-20 16:42 | Diagnostic Imaging Report ---
INDICATION: Shortness of breath with pleural effusion. Baseline. FINDINGS: Sitting AP and lateral views show moderate bibasilar pleural effusions. There is cardiomegaly. There are increased interstitial markings bilaterally with prominence of pulmonary vasculature. No evidence of pneumothorax. IMPRESSION: Findings are consistent with congestive failure with moderate bilateral pleural effusions. Dictated by: Dictated on workstation # [id number]
--- NOTE | 2021-04-20 16:51 | Consultation-Cardiology ---
HPI-Cardiology Cardiology Consultation Date of Consultation 04/20/21 Date of Admission Time Seen by Provider: 16:46 Indication: Atrial fibrillation HPI 80 years old lady transferred to the acute rehab unit from [facility] in [place], she underwent repair for perforated ulcer, had prolonged recovery, continuous leak from the ulcer, did not require redo surgery. Patient reported that she healed over time. She is doing better but having generalized weakness, reported that she has paroxysmal atrial fibrillation in the past, has been in persistent atrial fibrillation at least for the past year with rate control and Coumadin. Home Medications & Allergies Allergies: Coded Allergies: Penicillins (Verified Allergy, Unknown, 04/20/21) Sulfa (Sulfonamide Antibiotics) (Verified Allergy, Unknown, 04/20/21) iodine (Verified Allergy, Unknown, 04/20/21) povidone-iodine (Verified Allergy, Unknown, 04/20/21) Home Medication List Reviewed: Yes WUO-Tagfqy-Leytab Hx Patient Social History Smoking Status: Never a Smoker 2nd Hand Smoke Exposure: No Recent Hopitalizations: Yes ([facility] to [facility]) Have you traveled recently?: No Alcohol Use?: No Immunizations Up To Date Date of Influenza Vaccine: Mar 18, 2021 Past Medical History Discussed below Family Medical History Significant Family History: Cancer (dad), Diabetes (dad and mom) Family Medical Hx Noncontributory Review of Systems-General Review of Systems Constitutional: see HPI, chills; No diaphoresis, No fever; weakness; No weight gain, No weight loss EENTM: blurred vision; No double vision, No eye pain, No hoarseness, No mouth pain, No nose pain, No throat pain Respiratory: No cough; dyspnea on exertion; No short of breath Cardiovascular: No chest pain, No edema; Hx of Intervention; No palpitations Gastrointestinal: No abdominal pain, No constipation, No diarrhea, No melena, No nausea, No vomiting; other (history of hemorrhiods ) Genitourinary: No decreased output, No discharge, No dysuria, No frequency, No hematuria, No pain Musculoskeletal: joint pain (left shoulder-chronic) Skin: No change in color, No rash; other Psychiatric/Neurological: Denies Anxiety, Denies Depressed, Denies Emotional Problems, Denies Headache; Weakness Physical Exam Physical Exam Vital Signs Vital Signs - First Documented 04/20/21 10:30 Temp 36.1 Pulse 104 Resp 18 B/P (MAP) 117/82 (94) Pulse Ox 94 O2 Delivery Nasal Cannula O2 Flow Rate 0.50 Capillary Refill : Height, Weight, BMI Height: '" Weight: lbs. oz. kg; 28.62 BMI Method: General Appearance: No Apparent Distress, WD/WN Eyes: Bilateral Eye Normal Inspection, Bilateral Eye PERRL, Bilateral Eye EOMI Neck: Normal Inspection Respiratory: Chest Non Tender, No Accessory Muscle Use, No Respiratory Distress Cardiovascular: No Edema, Irregularly Irregular Gastrointestinal: No Pulsatile Mass, Non Tender, Soft Back: No CVA Tenderness Extremity: Normal Inspection, No Pedal Edema Neurologic/Psychiatric: Alert, Oriented x3, No Motor/Sensory Deficits, Normal Mood/Affect Skin: Normal Color, Warm/Dry Lymphatic: No Adenopathy A/P-Cardiology Admission Diagnosis Persistent atrial fibrillation Tachycardia Perforated ulcer Pleural effusion Assessment/Plan Persistent atrial fibrillation, on rate control medication, I will increase Cardizem CD 122 twice daily and evaluate her tolerance and response. Monitor blood pressure. Perforated ulcer, status post repair, had complication post surgery with continuous leak. Currently better. Continue to monitor Left-sided pleural effusion noted incidentally on her echo. I will evaluate chest x-ray PA and lateral Hypertension, continue current medication and monitor blood pressure Generalized weakness, receiving physical therapy. TC TUCKER MD Apr 20, 2021 16:51
[2021-04-20] MEDS: warFARin 2.5 MG (COUMADIN) TAB PO SCH (17:06)
[2021-04-20 20:00] VITALS: BP 116/62
[2021-04-20] MEDS: ATENOLOL 25 MG (TENORMIN) TAB PO SCH (21:07)
[2021-04-21 05:53] LABS: BASOPHILS # (AUTO) 0.1 10^3/uL (0.0-0.1); BASOPHILS % (AUTO) 1 % (0-10); EOSINOPHILS # (AUTO) 0.7 10^3/uL (0.0-0.3); EOSINOPHILS % (AUTO) 12 % (0-10); HEMATOCRIT 30 % (35-52); HEMOGLOBIN 9.3 g/dL (11.5-16.0); LYMPHOCYTES # (AUTO) 0.6 10^3/uL (1.0-4.0); LYMPHOCYTES % (AUTO) 10 % (12-44); MEAN CORPUSCULAR HEMOGLOBIN 22 pg (25-34); MEAN CORPUSCULAR HGB CONC 31 g/dL (32-36); MEAN CORPUSCULAR VOLUME 71 fL (80-99); MONOCYTES # (AUTO) 0.7 10^3/uL (0.0-1.0); MONOCYTES % (AUTO) 11 % (0-12); NEUTROPHILS % (AUTO) 65 % (42-75); PLATELET COUNT 363 10^3/uL (130-400); WHITE BLOOD COUNT 6.2 10^3/uL (4.3-11.0)
[2021-04-21 06:01] LABS: ALBUMIN 2.7 GM/DL (3.2-4.5)
[2021-04-21 06:02] LABS: POTASSIUM 4.1 MMOL/L (3.6-5.0)
[2021-04-21 06:03] LABS: CALCIUM 8.9 MG/DL (8.5-10.1)
[2021-04-21 06:04] LABS: TOTAL PROTEIN 5.9 GM/DL (6.4-8.2)
[2021-04-21 06:05] LABS: INR 1.5 (0.8-1.4); PROTHROMBIN TIME PATIENT 18.5 SEC (12.2-14.7)
[2021-04-21 06:06] LABS: BILIRUBIN,TOTAL 0.6 MG/DL (0.1-1.0)
[2021-04-21 06:08] LABS: CREATININE SERUM 0.99 MG/DL (0.60-1.30)
[2021-04-21] MEDS: MULTIVIT W/MINERALS TAB (THERAGRAN M) PO SCH (06:54)
[2021-04-21 07:29] VITALS: BP 110/60
[2021-04-21] MEDS: PIOGLITAZONE 30MG (ACTOS) TAB PO SCH (07:46)
[2021-04-21] MEDS: DOCUSATE SODIUM 100 MG (COLACE) CAP PO SCH ×2 (07:46→20:40)
[2021-04-21] MEDS: SENNA W/DOCUSATE (SENOKOT S) TABLET PO SCH ×2 (07:46→20:41)
[2021-04-21] MEDS: ALLOPURINOL 100 MG (ZYLOPRIM) TAB PO SCH (07:46)
[2021-04-21] MEDS: polyethylene glycoL POWDER 17 GM (MIRALAX) PACK PO SCH ×3 (07:47→20:41)
[2021-04-21] MEDS: ATENOLOL 25 MG (TENORMIN) TAB PO SCH ×2 (07:47→20:40)
[2021-04-21] MEDS ORDERED: dilTIAZem120 MG (CARDIZEM CD) CAP PO SCH (09:00)
--- NOTE | 2021-04-21 10:04 | Progress Note - Surgery ---
RODOTONY 04/21/21 1004: Subjective Date Seen by a Provider: Apr 21, 2021 Time Seen by a Provider: 07:56 Subjective/Events-last exam When I visited the pt today she was sitting up in chair eating her breakfast. ADAIR drain was empty when I arrived and nursing confirms <30ml serous fluid was c ollected in the last 24hrs. Review of Systems General: No Chills, No Night Sweats, No Fatigue; Appetite HEENT: No Head Aches, No Dysphasia, No Sore Throat Pulmonary: No Dyspnea, No Cough Cardiovascular: No: Chest Pain, Edema, Lt Headedness Gastrointestinal: No: Nausea, Vomiting, Abdominal Pain, Diarrhea Genitourinary: No Dysuria, No Frequency Musculoskeletal: No: neck pain, back pain Neurological: No: Weakness, Numbness, Change in speech, Confusion Objective Exam Vital Signs Date Time Temp Pulse Resp B/P (MAP) Pulse Ox O2 Delivery O2 Flow Rate FiO2 04/21/21 09:14 95 Nasal Cannula 0.50 04/21/21 07:29 36.6 91 18 110/60 (77) 94 Room Air 04/20/21 21:10 94 Nasal Cannula 0.50 04/20/21 20:00 36.6 92 18 116/62 (80) 94 Nasal Cannula 0.50 04/20/21 15:29 107 93 04/20/21 14:33 Nasal Cannula 0.50 04/20/21 10:30 36.1 104 18 117/82 (94) 94 Nasal Cannula 0.50 I & O 04/21/21 07:00 Intake Total 200 ml Output Total 658 ml Balance -458 ml Capillary Refill : General Appearance: No Apparent Distress, WD/WN, Chronically ill HEENT: PERRL/EOMI, Normal ENT Inspection, Pharynx Normal Neck: Full Range of Motion, Normal Inspection, Non Tender, Supple, Carotid Bruit Respiratory: Chest Non Tender, Lungs Clear, No Accessory Muscle Use, No Respiratory Distress, Decreased Breath Sounds Cardiovascular: No Edema, No Gallop, No JVD, No Murmur, Normal Peripheral Pulses, Irregularly Irregular, Tachycardia Gastrointestinal: non tender, soft, other (midline incision has good granulation at skin level, ADAIR drain right flank with serous fluid) Extremity: Normal Capillary Refill, Normal Inspection, Normal Range of Motion, Non Tender, No Calf Tenderness, No Pedal Edema Neurologic/Psychiatric: Alert, Oriented x3, No Motor/Sensory Deficits, Normal Mood/Affect, Abnormal Gait (Unable to ambulate), Motor Weakness (Generalized) Skin: Normal Color, Warm/Dry Lymphatic: No Adenopathy Results Lab Laboratory Tests 04/21/21 05:39: White Blood Count 6.2, Red Blood Count 4.28, Hemoglobin 9.3L, Hematocrit 30L, Mean Corpuscular Volume 71L, Mean Corpuscular Hemoglobin 22L, Mean Corpuscular Hemoglobin Concent 31L, Red Cell Distribution Width 26.5H, Platelet Count 363, Mean Platelet Volume 10.0, Immature Granulocyte % (Auto) 0, Neutrophils (%) (Auto) 65, Lymphocytes (%) (Auto) 10L, Monocytes (%) (Auto) 11, Eosinophils (%) (Auto) 12H, Basophils (%) (Auto) 1, Neutrophils # (Auto) 4.0, Lymphocytes # (Auto) 0.6L, Monocytes # (Auto) 0.7, Eosinophils # (Auto) 0.7H, Basophils # (Auto) 0.1, Immature Granulocyte # (Auto) 0.0, Prothrombin Time 18.5H, INR Comment 1.5H, Sodium Level 137, Potassium Level 4.1, Chloride Level 100, Carbon Dioxide Level 25, Anion Gap 12, Blood Urea Nitrogen 38H, Creatinine 0.99, Estimat Glomerular Filtration Rate 54, BUN/Creatinine Ratio 38, Glucose Level 137H, Calcium Level 8.9, Corrected Calcium 9.9, Total Bilirubin 0.6, Aspartate Amino Transf (AST/SGOT) 19, Alanine Aminotransferase (ALT/SGPT) 10, Alkaline Phosphatase 141H, B-Type Natriuretic Peptide 790.3H, Total Protein 5.9L, Albumin 2.7L Assessment/Plan Assessment/Plan Assessment/Plan Assessment: Functional ADAIR drain in LUQ Diffuse myopathy Chronic right shoulder pain Plan: Remove ADAIR - less than 30ml of serous fluid collected in last 24 hours. ADAM GAMEZ DO 04/21/211906: Subjective Time Seen by a Provider: 13:24 Subjective/Events-last exam Pt seen and examined, no complaints. She is tolerating diet and having BMs. Review of Systems General: No Chills, No Night Sweats HEENT: No Head Aches Pulmonary: No Dyspnea, No Cough Cardiovascular: No: Chest Pain, Edema Gastrointestinal: No: Nausea, Vomiting, Abdominal Pain Objective Exam General Appearance: No Apparent Distress, Chronically ill HEENT: PERRL/EOMI Respiratory: Lungs Clear, No Accessory Muscle Use, No Respiratory Distress, Decreased Breath Sounds Cardiovascular: No Murmur, Irregularly Irregular Gastrointestinal: non tender, soft, other (midline incision has good granulation at skin level, ADAIR drain right flank with serous fluid) Extremity: No Calf Tenderness Neurologic/Psychiatric: Alert, Oriented x3, Abnormal Gait (Unable to ambulate), Motor Weakness (Generalized) Assessment/Plan Assessment/Plan Assessment/Plan Assessment: Functional ADAIR drain in LUQ Diffuse myopathy Chronic right shoulder pain Plan: I reviewed all the notes (in patients chart) from the surgical stay in [place], [place] and the rehab at [facility] in [place]. She had a dehiscence at [facility], but it is not documented anywhere that I could find. Will remove ADAIR, because less than 30ml of serous fluid collected in last 24 hours. Abomen has good granulation and nothing to do, can allow to air dry or use some non- adhesive covering. Nothing surgical needed, will sign off. Supervisory-Addendum Brief Verification & Attestation Participated in pt care: history, MDM, physical Personally performed: exam, history, MDM, supervision of care Care discussed with: Medical Student Procedures: n/a Verification and Attestation of Medical Student E/M Service A medical student performed and documented this service. I then reviewed and verified all information documented by the medical student and made modifications to such information, when appropriate. I personally performed a physical exam, medical decision making and then discussed any differences between the notes and made revisions as necessary to create one note. Adam Gamez , 04/21/21 , 19:08 TONY KOEHLER Apr 21, 2021 10:04 ADAM GAMEZ DO Apr 21, 2021 19:07
--- NOTE | 2021-04-21 10:44 | Cardiology Progress Note ---
Subjective Date Seen by Provider: Apr 21, 2021 Time Seen by Provider: 10:41 Subjective/Events-last exam No new complaints, denies any chest pain, noted to be slightly tachycardic. Review of Systems General: No Chills, No Night Sweats, No Fatigue; Malaise; No Appetite, No Other HEENT: No Head Aches, No Visual Changes, No Eye Pain, No Ear Pain, No Dysphasia, No Sinus Congestion, No Post Nasal Drip, No Sore Throat, No Other Pulmonary: No Dyspnea, No Cough, No Pleuritic Chest Pain, No Other Cardiovascular: No: Chest Pain, Palpitations, Orthopnea, Paroxysmal Noc. Dyspnea, Edema, Lt Headedness, Other Objective-Cardiology Exam Last Set of Vital Signs Vital Signs 04/21/21 04/21/21 07:29 09:14 Temp 36.6 Pulse 91 Resp 18 B/P (MAP) 110/60 (77) Pulse Ox 95 O2 Delivery Nasal Cannula O2 Flow Rate 0.50 I&O Intake and Output 04/21/21 00:00 Bladder Scan Volume Amount 127 ml 0 ml Daily Weight Change No General: Alert, Oriented X3, Cooperative HEENT: Atraumatic, PERRLA Neck: Supple, No JVD, No Thyromegaly Lungs: Clear to Auscultation, Normal Air Movement Heart: Normal S1, Normal S2, Other (irregularly irregular, slightly tachycardic) Abdomen: Normal Bowel Sounds, Soft Skin: No Rashes, No Significant Lesion Neuro: Normal Speech Psych/Mental Status: Mental Status NL, Mood NL Results Lab Laboratory Tests 04/21/21 05:39 A/P-Cardiology Admission Diagnosis Persistent atrial fibrillation Tachycardia Perforated ulcer Pleural effusion Assessment/Plan Persistent atrial fibrillation, on rate control medication, Increase Cardizem CD to 240mg daily and evaluate her tolerance and response. Monitor blood pressure. Maintained on coumadin, continue to monitor INR. Perforated ulcer, status post repair, had complication post surgery with continuous leak. Currently better. Continue to monitor Left-sided pleural effusion noted incidentally on her echo. CXR showing moderate bilat pleural effusion. Hypertension, continue current medication and monitor blood pressure Generalized weakness, receiving physical therapy. Patient was seen and evaluated with Natalia, examination performed, management plan was discussed, agree with the current scribed note, I made few changes to the note using Italic font Patient was seen at bedside, sitting comfortably, heart rate is slightly better. Continue with Cardizem CD 240 mg daily, monitor heart rate and blood pressure Evaluate 2D echo. NATALIA GALLEGOS Apr 21, 2021 10:44 TC TUCKER MD Apr 21, 2021 16:11
--- NOTE | 2021-04-21 10:58 | Physical Therapy Daily Note ---
PT Daily Note-Current Subjective Pt. agrees to Rx with PT OT co Rx secondary to poor activity tolerance and 2 skilled clinicians needed for coordination of TRFs and w/c mob and standing activities. Pt. pleasant and very talkative and needs redirected to task frequently Pain Location: No Pain Reported Mental Status Patient Orientation: Person, Place, Time, Situation Attachments: Oxygen, Drains Transfers SCALE: Activities may be completed with or without assistive devices. 0-Szudewvcjk-rwdmjmr completes the activity by him/herself with no assistance from a helper. 5-Set-up or Clean-up Assistance-helper sets up or cleans up; patient completes activity. [place] assists only prior to or following the activity. 4-Supervision or Touching Assistance-helper provides verbal cues and/or touching/steadying and/or contact guard assistance as patient completes activity. Assistance may be provided throughout the activity or intermittently. 3-Partial/Moderate Assistance-helper does LESS THAN HALF the effort. [place] lifts, holds or supports trunk or limbs, but provides less than half the effort. 2-Substantial/Maximal Assistance-helper does MORE THAN HALF the effort. [place] lifts or holds trunk or limbs and provides more than half the effort. 1-Vmazxehqa-cwiyop does ALL the effort. Patient does none of the effort to complete the activity. Or, the assistance of 2 or more helpers is required for the patient to complete the activity. If activity was not attempted, code reason: 7-Patient Refused. 9-Not Applicable-not attempted and the patient did not perform the activity before the current illness, exacerbation or injury. 10-Not Attempted due to Environmental Limitations-(lack of equipment, weather restraints, etc.). 88-Not Attempted due to Medical Conditions or Safety Concerns. Roll Left & Right (QC): 5 Sit to Lying (QC): 4 Lying to Sitting/Side of Bed(Q: 4 Sit to Stand (QC): 3 Chair/Xrf-of-Zcyto Xfer(QC): 4 height of seat in w/c adjusted (raised with padding and cushion)to accommodate sit to stand weakness as well as electric lift recline change out for standard recliner in pts room. Pt. shares that she has a lift recliner at home Gait Training Does the Patient Walk?: Yes Walk 10 feet (QC): 4 Gait Persons Needed: 1 Gait Assistive Device: FWW 12ft x 3 CGA with FWW heavy wt bearing on FWW and w/c close behind Wheelchair Training Does the Pt Use a Wheelchair?: Yes Wheel 50 ft with 2 turns (QC): 3 Type of Wheelchair: Manual needs reminders and occas assist to brake w/c as well as very slow to move and needs instruction Exercises Supine Ex: Rolling, Short Arc Quads, Scooting, Hip abd/add Supine Reps: 10 Seated Therapy Exercises: Ankle pumps, Sit to stand, Long arc quads, Hip flexion, Hip abd/add Seated Reps: 12 Standing: Hip Abduction, Heel/toe raises, Sit to Stand Standing Reps: 10 Treatments PT OT co Rx for TRFs, functional activities and pregait and gait activiites, ther ex at // bars and in sup and sit, OT for shoes and dressing as well Assessment Current Status: Good Progress PT Short Term Goals Short Term Goals Time Frame: Apr 27, 2021 Roll Left & Right: 6 Sit to lyin Lying to sitting on side of be: 4 Sit to stand: 3 Chair/hxh-ow-xlwtb transfer: 4 Walk 10 feet: 4 Walk 50 feet with two turns: 3 PT Bean Dumper Goals Bean Dumper Goals PT Bean Dumper Goals Time Frame: May 11, 2021 Roll Left & Right (QC): 6 Sit to Lying (QC): 4 Lying-Sitting on Side/Bed(QC): 5 Sit to Stand (QC): 4 Chair/Hfe-tl-Gvciz Xfer(QC): 5 Toilet Transfer (QC): 5 Car Transfer (QC): 4 Does the Patient Walk: Yes Walk 10 feet (QC): 4 Walk 50ft with 2 Turns (QC): 4 Walk 150 ft (QC): 4 Walking 10ft on Uneven Surface: 4 1 Step (curb) (QC): 4 4 Steps (QC): 4 12 Steps (QC): 88 Picking up an Object (QC): 4 Wheel 50 feet with 2 turns (QC: 9 Wheel 150 feet: 9 PT Plan Treatment/Plan Treatment Plan: Continue Plan of Care Treatment Plan: Bed Mobility, Education, Functional Activity Karley, Functional Strength, Group Therapy, Gait, Safety, Therapeutic Exercise, Transfers Treatment Duration: May 11, 2021 Frequency: At least 5 of 7 days/Wk (IRF) Estimated Hrs Per Day: 1.5 hours per day Patient and/or Family Agrees t: Yes Safety Risks/Education Patient Education: Gait Training, Transfer Techniques, Correct Positioning, W/C Management, Disease Process, Safety Issues Teaching Recipient: Patient Teaching Methods: Demonstration, Discussion Response to Teaching: Verbalize Understanding, Return Demonstration, Reinforcement Needed Time/GCodes Time In: 1000 Time Out: 1100 Total Billed Treatment Time: 60 Total Billed Treatment 1,EX25m,FA35m SUMAYA FLORES LVN Apr 21, 2021 10:58
--- NOTE | 2021-04-21 11:04 | ST Cognitive Linguistic Eval ---
Speech Evaluation-General Medical Diagnosis Disuse Myopathy Onset Date: Feb 26, 2021 Therapy Diagnosis Therapy Diagnosis: Intact Cognitive Linguistic Skills and Function Precautions Precautions: Fall Referral Referring Physician: Dr. Shanna Fairchild Reason for Referral: Evaluation/Treatment Medical History Pertinent Medical History: Atrial Fib, Arthritis, DM, HTN, Renal Insufficiency Reviewed History: Yes Social History Current Living Status: Children (daughter and son in law & their kids.) Speech PLF-Current Status Prior Level of Function The patient lived at home with her son-in-law, daughter, and three grandchilldren prior to hospitalization. Per patient, she was independent with her ADL's. The patient did not report difficulty or concerns in the areas of speech, language, cognition, voice, or swallowing. Per patient, she consumes a regular diet with thin liquids and does not experience s/s of suspected aspiration with PO items consumed. The patient stated, "Sometimes I have a hard time remembering some one's name, like there is so-and-so, but it always comes to me. It's been like that forever." Subjective The patient was seated upright in a recliner upon entrance to her room. The patient greeted the clinician appropriately and was agreeable to participation in the cognitive linguistic evaluation. The patient remained pleasant and cooperative throughout the treatment session. Language Eval: Auditory Comprehends Simple Yes/No Ques: Functional Indent/Objects Multiple Mcconnell: Functional Ident/Pics in Multiple Mcconnell: Functional Follows 1-Step Commands: Functional Follows Complex Directions: Functional Follows General Conversations: Functional Language Eval: Verbal Language Completes Spontaneous Greeting: Functional Produces Auto, Serial Info: Functional Imitates Simple Words/Phrases: Functional Word Finding: Functional Requests Basic Needs: Functional States Basic Personal Info: Functional Expresses Complex Ideas: Functional Language Evaluation: Reading Comprehends Single Nouns: Functional Comprehends Multiple Sentences: Functional Language Evaluation: Writing Copies/Traces: Functional Writes to Simple Dictation: Functional Cognitive Patient Orientation The patient was independently oriented to location, city, month, day of week, date, and year. Objective Cognitive Domain Attention: Mild (The patient requires frequent redirection to task and topic.) Memory: WNL Problem Solving: Functional Executive Functions: WNL Visuospatial Skills: WNL (The patient does report the necessity for "new glasses" but is able to complete tasks appropriately on this date.) Composite Severity Rating: WNL Clock Drawing Severity Rating: WNL Objective Formal/Standardized Tests [facility] Mental Status (UMS) Results +29/30 (which correlates to NORMAL neurocognitive function) Oral Motor/Speech Production While the patient displays mildly reduced articulatory precision, the errors appear secondary to the patient's edentulous state. Impression The patient is an 80 year-old female who presents with a score of +29/30 on the SLUMS correlating to NORMAL neurocognitive function. The patient displayed one error throughout the assessment, as she was able to recall four of five single items. With a category cue, the patient was able to recall five of five single items. At this time, skilled speech pathology services do not appear necessary. Speech Patient Assess Expression of Ideas/Wants: Expression (4) Understanding Verbal Content: Understands (4) Brief Interview-Mental Status: Yes Repetition of Three Words: Three (3) Temporal Orientation: Year: Correct (3) Temporal Orientation: Month: Accurate within 5 days(2) Temporal Orientation: Day: Correct (1) Recall : Wear to say "Sock": Yes, no cue required (2) Recall : Color: Yes, no cue required (2) Recall : Bed: Yes, no cue required (2) Memory/Recall Ability: Current season, Location of own room, That he or she is in a hsp/hsp unit Speech-Plan Patient/Family Goals Patient/Family Goals: Per patient, "I want to get home!." Treatment Plan Speech Therapy Treatment Plan: Discontinue ST Treatment Duration: Apr 21, 2021 Frequency: 1 time per week Estimated Hrs Per Day: .5 hour per day Rehab Potential: Good Barriers to Learning: At this time, the patient does not display barriers to learning. Pt/Family Agrees to Plan: Yes Safety Risks/Education Teaching Recipient: Patient Teaching Methods: Discussion Response to Teaching: Verbalize Understanding Education Topics Provided: The clinician visited with the patient regarding her results, as well as, skilled services speech pathology can offer throughout her rehabilitation. The patient verbalized comprehension of the material and denied questions or concerns for the clinician at this time. Time Speech Therapy Time In: 09:00 Speech Therapy Time Out: 09:30 Total Billed Time: 30 Billed Treatment Time 1, JOSH SHARMA ELIZABETH ST Apr 21, 2021 11:04
--- NOTE | 2021-04-21 11:12 | Occupational Ther Daily Note ---
OT Current Status-Daily Note Subjective Pt seated in recliner, agreeable to OT Tx. Mental Status/Objective Patient Orientation: Person, Place, Situation Attachments: Drains, Oxygen (.5L) ADL-Treatment Therapy Code Descriptions/Definitions Functional [place] Measure: 0=Not Assessed/NA 4=Minimal Assistance 1=Total Assistance 5=Supervision or Setup 2=Maximal Assistance 6=Modified [place] 3=Moderate Assistance 7=Complete IndependenceSCALE: Activities may be completed with or without assistive devices. 1-Xlkzspooyn-plzplnb completes the activity by him/herself with no assistance from a helper. 5-Set-up or Clean-up Assistance-helper sets up or cleans up; patient completes activity. [place] assists only prior to or following the activity. 4-Supervision or Touching Assistance-helper provides verbal cues and/or touching/steadying and/or contact guard assistance as patient completes activity. Assistance may be provided throughout the activity or intermittently. 3-Partial/Moderate Assistance-helper does LESS THAN HALF the effort. [place] lifts, holds or supports trunk or limbs, but provides less than half the effort. 2-Substantial/Maximal Assistance-helper does MORE THAN HALF the effort. [place] lifts or holds trunk or limbs and provides more than half the effort. 3-Vphuimcof-cmabmv does ALL the effort. Patient does none of the effort to complete the activity. Or, the assistance of 2 or more helpers is required for the patient to complete the activity. If activity was not attempted, code reason: 7-Patient Refused. 9-Not Applicable-not attempted and the patient did not perform the activity before the current illness, exacerbation or injury. 10-Not Attempted due to Environmental Limitations-(lack of equipment, weather restraints, etc.). 88-Not Attempted due to Medical Conditions or Safety Concerns. Upper Body Dressing (QC): 5 (set up with cloth covered helmet puller nightgown) On/Off Footwear: 2 (Max A with donning bilateral shoes) Other Treatment [id number] OT tx. Pt seated in recliner, [facility] and donned cloth covered helmet puller night gown. Pt then donned footwear, QC scores above. [id number] OT/PT cotreat. OT/PT cotreat due to skill of 2 clinicians required which a materials technician could not perform in order to coordinate UE/LEs, decrease fall risk, address safety concerns and due to pt's limitations in transfers/mobility, strength and activity tolerance. OT focused on UE placement, cues for sequencing and safety, and assist with transfers/mobility. PT focused on LE placement, transfers and mobility and overall gross movement. Pt transferred from recliner to w/c, recliner switched out to a lift chair as pt has lift chair at home. Pt propelled w/c to therapy gym. Pt performed preparatory exercises for standing in order to increase independence/safety with sit to stand transfers and increase BUE strength. Pt stood at parallel bars, completing various exercises in standing, then sat in w/c to complete seated exercises, rest breaks as needed. Pt educated on UE placement with transfers. Pt used FWW to transfer to mat, bed mobility simulated with pt transferring supine, then onto side and up. Pt's walker placed to side in order for pt to push up du ring supine to sit transfer. Pt returned to w/c, taken back to room, and transferred to lift chair. Pt educated on how to use lift chair and positioned to comfort. Post tx, pt in recliner, call light in reach and all needs met. Please refer to PT note for QC scores associated with mobility/transfers. Education OT Patient Education: Correct positioning, Energy conservation, Exercise program, Modified ADL techniques, Progress toward Goal/Update tx plan, Purpose of tx/functional activities, Rehab process, Safety issues, Transfer techniques Teaching Recipient: Patient Teaching Methods: Discussion Response to Teaching: Verbalize Understanding OT Short Term Goals Short Term Goals Time Frame: May 05, 2021 Toileting hygiene: 3 Shower/bathe self: 3 Lower body dressin Putting on/taking off footwear: 3 OT Custodial Goals Custodial Goals Time Frame: May 14, 2021 Eating (QC): 6 Oral Hygiene (QC): 6 Toileting Hygiene (QC): 6 Shower/Bathe Self (QC): 5 Upper Body Dressing (QC): 5 Lower Body Dressing (QC): 4 On/Off Footwear (QC): 4 Additional Goals: 1-Demonstrate ADL Tasks, 2-Verbalize Understanding, 3- ImproveStrength/Karley 1=Demonstrate adherence to instructed precautions during ADL tasks. 2=Patient will verbalize/demonstrate understanding of assistive devices/modifications for ADL. 3=Patient will improve strength/tolerance for activity to enable patient to perform ADL's. OT Education/Plan Problem List/Assessment Assessment: Decreased Activ Tolerance, Decreased UE Strength, Impaired Funct Balance, Impaired I ADL's, Impaired Self-Care Skills, Restricted Funct UE ROM Discharge Recommendations Plan/Recommendations: Continue POC Treatment Plan/Plan of Care Patient would benefit from OT for education, treatment and training to promote independence in ADL's, mobility, safety and/or upper extremity function for ADL's. Plan of Care: ADL Retraining, Functional Mobility, Group Exercise/Act as Ind, UE Funct Exercise/Act Treatment Duration: May 14, 2021 Frequency: At least 5 of 7 days/Wk (IRF) Estimated Hrs Per Day: 1.5 hours per day Agreement: Yes Rehab Potential: Fair Time/GCodes Start Time: 09:45 Stop Time: 11:00 Total Time Billed (hr/min): 75 Billed Treatment Time 1, ADL (15'), EX 2 (30'), FA 2 (30') VANNESA PATEL OT Apr 21, 2021 11:12
--- NOTE | 2021-04-21 11:54 | PM&R Progress Note ---
Subjective HPI/CC On Admission Date Seen by Provider: Apr 21, 2021 Time Seen by Provider: 12:30 Subjective/Events-last exam 04/21/2021: Pt doing a lot better Using qsh-ff-srheh Walks ten feet with a walker Oxygen at half a liter Feet are really cracked - will place lotion Hgb 9.3 INR 1.5 Heart rate in the 90s since Cardizem was increased Slum score is 29/30 Review of Systems General: Fatigue, Malaise Objective Exam Vital Signs Vital Signs Date Time Temp Pulse Resp B/P (MAP) Pulse Ox O2 Delivery O2 Flow Rate FiO2 04/21/21 20:45 94 Nasal Cannula 0.50 04/21/21 19:58 36.9 80 20 101/53 (69) Capillary Refill : General Appearance: No Apparent Distress, WD/WN, Chronically ill HEENT: PERRL/EOMI, Normal ENT Inspection, Pharynx Normal Neck: Full Range of Motion, Normal Inspection, Non Tender, Supple, Carotid Bruit Respiratory: Chest Non Tender, Lungs Clear, No Accessory Muscle Use, No Respiratory Distress, Decreased Breath Sounds Cardiovascular: No Edema, No Gallop, No JVD, No Murmur, Normal Peripheral Pulses, Irregularly Irregular, Tachycardia Gastrointestinal: Normal Bowel Sounds, No Organomegaly, No Pulsatile Mass, Soft, Tenderness Back: Normal Inspection, No CVA Tenderness, No Vertebral Tenderness Extremity: Normal Capillary Refill, Normal Inspection, Normal Range of Motion, Non Tender, No Calf Tenderness, No Pedal Edema Neurologic/Psychiatric: Alert, Oriented x3, No Motor/Sensory Deficits, Normal Mood/Affect, Abnormal Gait (Unable to ambulate), Motor Weakness (Generalized) Skin: Normal Color, Warm/Dry Lymphatic: No Adenopathy Results/Procedures Lab Laboratory Tests 04/21/21 05:39 Patient resulted labs reviewed. FIM Transfers Therapy Code Descriptions/Definitions Functional [place] Measure: 0=Not Assessed/NA 4=Minimal Assistance 1=Total Assistance 5=Supervision or Setup 2=Maximal Assistance 6=Modified [place] 3=Moderate Assistance 7=Complete IndependenceSCALE: Activities may be completed with or without assistive devices. 6-Debhwslnac-aeirlos completes the activity by him/herself with no assistance from a helper. 5-Set-up or Clean-up Assistance-helper sets up or cleans up; patient completes activity. [place] assists only prior to or following the activity. 4-Supervision or Touching Assistance-helper provides verbal cues and/or touching/steadying and/or contact guard assistance as patient completes activity. Assistance may be provided throughout the activity or intermittently. 3-Partial/Moderate Assistance-helper does LESS THAN HALF the effort. [place] lifts, holds or supports trunk or limbs, but provides less than half the effort. 2-Substantial/Maximal Assistance-helper does MORE THAN HALF the effort. [place] lifts or holds trunk or limbs and provides more than half the effort. 4-Nrhlaixtg-tuogny does ALL the effort. Patient does none of the effort to complete the activity. Or, the assistance of 2 or more helpers is required for the patient to complete the activity. If activity was not attempted, code reason: 7-Patient Refused. 9-Not Applicable-not attempted and the patient did not perform the activity before the current illness, exacerbation or injury. 10-Not Attempted due to Environmental Limitations-(lack of equipment, weather restraints, etc.). 88-Not Attempted due to Medical Conditions or Safety Concerns. Roll Left to Right (QC): 5 Sit to Lying (QC): 4 Sit to Stand (QC): 3 Chair/Fyx-ov-Miats Xfer(QC): 4 Car Transfer (QC): 88 Gait Training Does the Patient Walk?: Yes Walk 10 feet (QC): 4 Walk 50 ft with 2 Turns(QC): 88 Walk 150 ft (QC): 88 Walking 10ft/uneven surface-QC: 88 Gait Persons Needed: 1 Gait Assistive Device: FWW Wheelchair Training Does the Pt Use a Wheelchair?: Yes Distance: 100' Wheel 50 ft with 2 turns (QC): 3 Wheel 150 ft (QC): 88 Type of Wheelchair: Manual Stair Training 1 Step (curb) (QC): 88 4 Steps (QC): 88 12 Steps (QC): 88 Balance Picking up an Object (QC): 88 ADL-Treatment Eating (QC): 5 (Set up assist per pt report.) Oral Hygiene (QC): 6 (IND seated at sink.) Shower/Bathe Self (QC): 2 (Pt able to wash BUEs, chest/abdomen, thighs. Required assistance with buttocks, periarea, and BLE lower legs/feet.) Upper Body Dressing (QC): 5 (set up with ladle puller nightgown) Lower Body Dressing (QC): 2 (Pt able to thread brief over toes on RLE, assist to thread past heel. Assist to thread LLE and assist with pant hike. Max A sit to stand for pant hike.) On/Off Footwear (QC): 2 (Max A with donning bilateral shoes) Toileting Hygiene (QC): 1 (assist with all parts.) Assessment/Plan Assessment and Plan Assess & Plan/Chief Complaint Assessment: Critical illness myopathy Chronic atrial fibrillation not rate controlled consulting Dr. Marshall Urinary retention now resolved ADAIR drain in place consulting Dr. Gamez Subtherapeutic INR 1.5 Coumadin anticoagulation Plan: Supportive care Rehab protocol Consult Dr. Gamez Consult Dr. Marshall 04/21/2021: Supportive care Appreciate cardiology Appreciate general surgery (1) Gastric ulcer with perforation (2) Atrial fibrillation (3) Warfarin anticoagulation (4) Urinary retention (5) Diabetes (6) Myopathy JARON BRANNON DO Apr 21, 2021 11:54
--- NOTE | 2021-04-21 11:54 | Individualized Plan of Care ---
Individualized Plan of Care Rehab Nursing IPOC Order Admission Date Apr 20, 2021 at 10:30 Current Orders Orders Admission Order(Inpt,Obs,Sdc) (04/19/21 15:30) Vital Signs: Per Unit Policy ( 08,16,00 (04/19/21 15:30) Justyn Garza (04/19/21 15:30) Sequential Compression Device (04/19/21 15:30) School Bus Monitor-Inpt Rehab Con (04/19/21 15:30) Rehab Nursing Orders-Ipoc (04/19/21 15:30) Physical Therapy Rehab Orders (04/19/21 15:30) Occupational Therapy Rehab Ord (04/19/21 15:30) Speech Therapy Rehab Orders (04/19/21 15:30) Cbc With Automated Diff (04/21/21 06:00) Comprehensive Metabolic Panel (04/21/21 06:00) Precautions (Aru) (04/19/21 15:30) Weekly Weight WEEK (04/19/21 15:30) Rehab-Intensity Of Therapy (04/19/21 15:30) Initiate Admission Nursing Pro .admission (04/19/21 15:30) Alprazolam Tablet (Xanax Tablet) (04/19/21 15:30) Calcium Carbonate Chew Tablet (Antacid C (04/19/21 15:30) Diphenhydramine Tablet (Benadryl Tablet) (04/19/21 15:30) Docusate Sodium Capsule (Colace Capsule) (04/19/21 21:00) Docusate Sodium Capsule (Colace Capsule) (04/19/21 15:30) Bisacodyl Suppository (Dulcolax Supposit (04/19/21 15:30) Lactulose Oral Solution (Enulose Oral So (04/19/21 15:30) Na Phos/Na Biphos Enema (Fleet Enema Pritesh (04/19/21 15:30) Guaifenesin/Codeine Syrup (Robitussin Ac (04/19/21 15:30) Loperamide Tablet (Imodium Tablet) (04/19/21 15:30) Melatonin Tablet (Melatonin Tablet) (04/19/21 15:30) Polyethylene Glycol Powder Pkt (Miralax (04/19/21 21:00) Ondansetron Oral Dissolve Tab (Zofran (04/19/21 15:30) Senna S Tablet (Senokot S Tablet) (04/19/21 21:00) Therapeutic Activity Goals: .PRN (04/19/21 15:30) Nursing Communication (Order) (04/19/21 ) Naloxone Injection (Narcan Injection) (04/19/21 15:30) Code/Resuscitation (04/19/21 15:30) Initiate Admission Nursing Pro .admission (04/19/21 15:30) Admission Arrival Bed Request (04/20/21 10:44) Allopurinol Tablet (Zyloprim Tablet) (04/21/21 09:00) Atenolol Tablet (Tenormin Tablet) (04/20/21 21:00) Atorvastatin Tablet (Lipitor Tablet) (04/20/21 21:00) Diltiazem Cd 24 Hr Capsule (Cardizem Cd (04/21/21 09:00) Therapeutic Multivitamin Tab (Vitamins, (04/21/21 07:00) Pioglitazone Tablet (Actos Tablet) (04/21/21 09:00) Warfarin Tablet (Coumadin Tablet) (04/20/21 17:00) Cho 60g/M 1snack (16-2000 Todd) (04/20/21 Breakfast) Ekg Tracing (04/20/21 11:50) Consult Cardiology (04/20/21 11:50) Consult General Surgery (04/20/21 11:50) Diltiazem Cd 24 Hr Capsule (Cardizem Cd (04/20/21 13:15) Echo W Doppler/Color Flow (04/20/21 13:09) Patient Visit (04/20/21 ) Pt Eval Moderate Complexity (04/20/21 ) Functional Activities, Ea 15 (04/20/21 ) Patient Visit (04/20/21 ) Exercise Therap, Ea 15 Min (04/20/21 ) Chest Pa/Lat (2 View) (04/20/21 16:11) Protime With Inr (04/21/21 05:00) Bnp Susana (04/21/21 05:00) Nursing Communication (Order) (04/20/21 17:09) Diltiazem Cd 24 Hr Capsule (Cardizem Cd (04/21/21 09:00) Patient Visit (04/21/21 ) Speech Sound Lang Comp (04/21/21 ) Treat. Speech/Lang/Voice (04/21/21 ) Mineral Oil/Petrolatum,White (Eucerin Cr (04/21/21 21:00) Patient Visit (04/21/21 ) Exercise Therap, Ea 15 Min (04/21/21 ) Functional Activities, Ea 15 (04/21/21 ) Protime With Inr (04/22/21 05:00) Rehab Nursing Orders: Ongoing Assess. of Cognitive Status, Ongoing Assess. of Function Status, Bladder Management, Bladder Scan, Bladder Training, Bowel Management, Bowel Training, Disease Management & Educaiton, DVT Prophylaxis, Fall Prevention, Fluid/Electrolyte/Nutrition Mgmt, Infection Prevention, Medication Management & Education, Management of Risks & Complications, Management of Skin Intergrity, Nutrition Management, Pain Management, Patient/Family Support, Wound Management Intensity of Therapy to be met Patient to be seen: Min.3h per day/5 of 7d PT IPOC Problem List: Activity Tolerance, Functional Strength, Safety, Balance, Gait, Transfer, Bed Mobility, ROM Treatment Plan: Continue Plan of Care Bed Mobility, Education, Functional Activity Karley, Functional Strength, Group Therapy, Gait, Safety, Therapeutic Exercise, Transfers Treatment Duration: May 11, 2021 Frequency: At least 5 of 7 days/Wk (IRF) Estimated Hrs Per Day: 1.5 hours per day OT IPOC Problems: Decreased Activ Tolerance, Decreased UE Strength, Impaired Funct Balance, Impaired I ADL's, Impaired Self-Care Skills, Restricted Funct UE ROM OT Treatment, Training and Edu: Yes Plan of Care: ADL Retraining, Functional Mobility, Group Exercise/Act as Ind, UE Funct Exercise/Act Treatment Duration: May 14, 2021 Frequency: At least 5 of 7 days/Wk (IRF) Estimated Hrs Per Day: 1.[address] IPOC Speech Therapy Treatment Plan: Discontinue ST Treatment Duration: Apr 21, 2021 Frequency: 1 time per week Estimated Hrs Per Day: .5 hour per day School Bus Monitor/Case Mgmt School Bus Monitor/Case Managemen: Discharge Planning Dietitian/[place] Dietitian/[place] to monitor nutritional status and make changes and/or recommendations as needed and work with speech pathology on dietary upgrades as the occur. Physician IPOC Medical Issues being managed closely and that require the 24 hour availability of a physician: Recent gastrointestinal perforation with ADAIR drain and A. fib with RVR will require close monitoring with subspecialists to prevent decompensation Medical Issues: Bowel/Bladder Function, DVT Prophylaxis, Falls Precautions, Fluid/Electrolyte/Nutrition Balance, Infection Protection, Pain Management, Wound Care Brief Synthesis of Preadmission Screen, Post-Admission Evaluation, and Therapy Evaluations: PT OT will focus on regaining ambulatory function with use of walker and sit to stand and increase ADLs in order to return back to independent living Medical Prognosis: Good Anticipated Length of Stay: 14 days JARON BRANNON DO Apr 21, 2021 11:54
[2021-04-21] MEDS: warFARin 2.5 MG (COUMADIN) TAB PO SCH (17:32)
[2021-04-21 19:58] VITALS: BP 101/53
[2021-04-21] MEDS: EUCERIN CREAM 4 OZ JAR (HYDROCERIN) TP SCH (20:45)
[2021-04-22 06:23] LABS: INR 1.5 (0.8-1.4); PROTHROMBIN TIME PATIENT 18.8 SEC (12.2-14.7)
[2021-04-22] MEDS: MULTIVIT W/MINERALS TAB (THERAGRAN M) PO SCH (06:34)
[2021-04-22 07:36] VITALS: BP 111/57
[2021-04-22] MEDS: DOCUSATE SODIUM 100 MG (COLACE) CAP PO SCH ×2 (08:25→20:53)
[2021-04-22] MEDS: PIOGLITAZONE 30MG (ACTOS) TAB PO SCH (08:25)
[2021-04-22] MEDS: ATENOLOL 25 MG (TENORMIN) TAB PO SCH (08:25)
[2021-04-22] MEDS: SENNA W/DOCUSATE (SENOKOT S) TABLET PO SCH ×2 (08:25→20:53)
[2021-04-22] MEDS: ALLOPURINOL 100 MG (ZYLOPRIM) TAB PO SCH (08:25)
[2021-04-22] MEDS: polyethylene glycoL POWDER 17 GM (MIRALAX) PACK PO SCH ×2 (08:25→20:54)
[2021-04-22] MEDS: EUCERIN CREAM 4 OZ JAR (HYDROCERIN) TP SCH ×2 (08:26→20:55)
--- NOTE | 2021-04-22 08:34 | Cardiology Progress Note ---
Subjective Date Seen by Provider: Apr 22, 2021 Time Seen by Provider: 08:00 Subjective/Events-last exam Patient is sitting up in bed, no new complaints. Denies any chest pain, still slightly tachycardic Review of Systems General: No Chills, No Night Sweats, No Fatigue, No Malaise, No Appetite, No Other HEENT: No Head Aches, No Visual Changes, No Eye Pain, No Ear Pain, No Dysphas ia, No Sinus Congestion, No Post Nasal Drip, No Sore Throat, No Other Pulmonary: No Dyspnea, No Cough, No Pleuritic Chest Pain, No Other Cardiovascular: Palpitations; No: Chest Pain, Orthopnea, Paroxysmal Noc. Dy spnea, Edema, Lt Headedness, Other Objective-Cardiology Exam Last Set of Vital Signs Vital Signs 04/22/21 04/22/21 07:36 09:00 Temp 36.0 Pulse 106 Resp 16 B/P (MAP) 111/57 (75) Pulse Ox 95 O2 Delivery Nasal Cannula O2 Flow Rate 0.50 I&O Intake and Output 04/22/21 00:00 Intake Total 950 ml Output Total 908 ml Balance 42 ml Intake Oral 950 ml Output Urine Total 900 ml Drainage Total 8 ml # Bowel Movements 2 General: Alert, Oriented X3, Cooperative HEENT: Atraumatic, PERRLA Neck: Supple, No JVD, No Thyromegaly Lungs: Clear to Auscultation, Normal Air Movement Heart: Normal S1, Normal S2, Other (irregularly irregular, slightly tachycardic) Abdomen: Normal Bowel Sounds, Soft Skin: No Rashes, No Significant Lesion Neuro: Normal Speech Psych/Mental Status: Mental Status NL, Mood NL A/P-Cardiology Admission Diagnosis Persistent atrial fibrillation Tachycardia Perforated ulcer Pleural effusion Assessment/Plan Persistent atrial fibrillation, on rate control medication, maintained on Cardizem CD to 240mg daily still slightly tachycardic, I will change Atenolol to Toprol XL, conitnue to monitor. Monitor blood pressure. Maintained on coumadin, continue to monitor INR. Echocardiogram showed normal LV size, EF 55%, left atrial dilation, moderate to severe tricuspid regurgitation, moderate mitral regurgitation, pulmonary hypertension with PA pressure 50 mmHg Perforated ulcer, status post repair, had complication post surgery with continuous leak. Currently better. Continue to monitor Left-sided pleural effusion noted incidentally on her echo. CXR showing moderate bilat pleural effusion. Hypertension, continue current medication and monitor blood pressure Generalized weakness, receiving physical therapy. Supervisory-Addendum Brief Supervisory Addendum Participated in pt care: history, MDM, physical Personally performed: exam, history, MDM Care discussed with: NICK Results interpretation: Verified all documentation Notes: Patient was seen and evaluated with Naya, examination performed, management plan was discussed, agree with the current scribed note, I made few changes to the note using Italic font Patient was seen at bedside sitting comfortably, still borderline tachycardic, I will change atenolol to Toprol and increase the dose to 50 mg Continue on Cardizem Continue to monitor heart rate, blood pressure NAYA GALLEGOS Apr 22, 2021 08:34 TC TUCKER MD Apr 22, 2021 12:26
--- NOTE | 2021-04-22 09:57 | Occupational Ther Daily Note ---
OT Current Status-Daily Note Subjective Pt seated in recliner, agreeable to OT Tx. Mental Status/Objective Patient Orientation: Person, Place, Time, Situation Attachments: Oxygen ADL-Treatment Therapy Code Descriptions/Definitions Functional [place] Measure: 0=Not Assessed/NA 4=Minimal Assistance 1=Total Assistance 5=Supervision or Setup 2=Maximal Assistance 6=Modified [place] 3=Moderate Assistance 7=Complete IndependenceSCALE: Activities may be completed with or without assistive devices. 4-Avjqyiixhn-dqfjnyq completes the activity by him/herself with no assistance from a helper. 5-Set-up or Clean-up Assistance-helper sets up or cleans up; patient completes activity. [place] assists only prior to or following the activity. 4-Supervision or Touching Assistance-helper provides verbal cues and/or to uching/steadying and/or contact guard assistance as patient completes activity. Assistance may be provided throughout the activity or intermittently. 3-Partial/Moderate Assistance-helper does LESS THAN HALF the effort. [place] lifts, holds or supports trunk or limbs, but provides less than half the effort. 2-Substantial/Maximal Assistance-helper does MORE THAN HALF the effort. [place] lifts or holds trunk or limbs and provides more than half the effort. 8-Begpoegru-fsthqd does ALL the effort. Patient does none of the effort to complete the activity. Or, the assistance of 2 or more helpers is required for the patient to complete the activity. If activity was not attempted, code reason: 7-Patient Refused. 9-Not Applicable-not attempted and the patient did not perform the activity before the current illness, exacerbation or injury. 10-Not Attempted due to Environmental Limitations-(lack of equipment, weather restraints, etc.). 88-Not Attempted due to Medical Conditions or Safety Concerns. Shower/Bathe Self (QC): 3 (Min A with washing bilateral feet and buttocks. Pt able to wash all other parts.) Upper Body Dressing (QC): 5 (set up assist with tail puller gown.) On/Off Footwear: 2 (Pt doffed socks using decatizer with slight assistance and cues. Assist to don bilateral socks and shoes.) Toileting Hygiene (QC): 2 (Assist to manage pants down/up, pt able to wash periarea and assist with some clothing management. Assistance with washing buttocks.) Other Treatment [id number] OT tx. Pt seated in recliner, completed sponge bath and dressing. Pt able to wash BUEs, chest/abdomen, periarea (in standing), thighs and lower legs. OT assisted with feet for thoroughness and with washing buttocks. [id number] OT/PT cotreat. OT/PT cotreat due to skill of 2 clinicians required which a vocational rehabilitation counselor could not perform in order to coordinate UE/LEs, decrease fall risk, address safety concerns and due to pt's limitations in tra nsfers/mobility, strength and activity tolerance. OT focused on UE placement, cues for sequencing and safety, and assist with transfers/mobility. PT focused on LE placement, transfers and mobility and overall gross movement. Pt completed sponge, and donning clothes, transferred to w/c. Pt propelled w/c to therapy gym, performed functional mobility x3 trials using FWW, w/c follow ( 2x10', 1x15'). Pt's O2 saturation dropped into the 80%, came back up fairly quickly with rest. Pt then completed the following BUE exercises: 2x10 w/c pushups, and x10 front punch (limited shoulder flexion bilaterally). Post tx, pt seated in w/c in therapy gym, PT present to continue tx. Min-Mod A sit to stand transfers based on height of surface, CGA transfers using FWW. Education OT Patient Education: Correct positioning, Energy conservation, Exercise program, Modified ADL techniques, Progress toward Goal/Update tx plan, Purpose of tx/functional activities, Rehab process, Safety issues, Transfer techniques Teaching Recipient: Patient Teaching Methods: Discussion Response to Teaching: Verbalize Understanding OT Short Term Goals Short Term Goals Time Frame: May 05, 2021 Toileting hygiene: 3 Shower/bathe self: 3 Lower body dressin Putting on/taking off footwear: 3 OT Telephone Sales Agent Goals Custodial Goals Time Frame: May 14, 2021 Eating (QC): 6 Oral Hygiene (QC): 6 Toileting Hygiene (QC): 6 Shower/Bathe Self (QC): 5 Upper Body Dressing (QC): 5 Lower Body Dressing (QC): 4 On/Off Footwear (QC): 4 Additional Goals: 1-Demonstrate ADL Tasks, 2-Verbalize Understanding, 3- ImproveStrength/[place] 1=Demonstrate adherence to instructed precautions during ADL tasks. 2=Patient will verbalize/demonstrate understanding of assistive d evices/modifications for ADL. 3=Patient will improve strength/tolerance for activity to enable patient to perform ADL's. OT Education/Plan Problem List/Assessment Assessment: Decreased Activ Tolerance, Decreased UE Strength, Impaired Funct Balance, Impaired I ADL's, Impaired Self-Care Skills, Restricted Funct UE ROM Discharge Recommendations Plan/Recommendations: Continue POC Treatment Plan/Plan of Care Patient would benefit from OT for education, treatment and training to promote independence in ADL's, mobility, safety and/or upper extremity function for ADL's. Plan of Care: ADL Retraining, Functional Mobility, Group Exercise/Act as Ind, UE Funct Exercise/Act Treatment Duration: May 14, 2021 Frequency: At least 5 of 7 days/Wk (IRF) Estimated Hrs Per Day: 1.5 hours per day Agreement: Yes Rehab Potential: Good Time/GCodes Start Time: 08:30 Stop Time: 10:00 Total Time Billed (hr/min): 90 Billed Treatment Time [id number] OT tx. [id number] OT/PT cotreat 1, ADL 3 (45'), EX (10'), FA 2 (35) VANNESA PATEL OT Apr 22, 2021 09:57
[2021-04-22] MEDS: meTOproloL SUCCINATE 50 MG (TOPROL XL) TAB PO SCH (10:15)
--- NOTE | 2021-04-22 10:30 | Physical Therapy Daily Note ---
PT Daily Note-Current Subjective Patient in recliner pre tx, agrees to PT, has no complaints of pain. Will be co-treating with OT for part of tx due to poor patient mobility, strength, endurance, severe debility, coordinate UE and LE during activity, safety and reduce risk of falls. Appearance Patient in recliner post tx with nurse call, phone, tray, all needs met. Mental Status Patient Orientation: Normal For Age Attachments: Oxygen Transfers SCALE: Activities may be completed with or without assistive devices. 6-Awssigvejs-auwhggn completes the activity by him/herself with no assistance from a helper. 5-Set-up or Clean-up Assistance-helper sets up or cleans up; patient completes activity. [place] assists only prior to or following the activity. 4-Supervision or Touching Assistance-helper provides verbal cues and/or touching/steadying and/or contact guard assistance as patient completes activity. Assistance may be provided throughout the activity or intermittently. 3-Partial/Moderate Assistance-helper does LESS THAN HALF the effort. [place] lifts, holds or supports trunk or limbs, but provides less than half the effort. 2-Substantial/Maximal Assistance-helper does MORE THAN HALF the effort. [place] lifts or holds trunk or limbs and provides more than half the effort. 6-Vikeceelt-uzlkys does ALL the effort. Patient does none of the effort to complete the activity. Or, the assistance of 2 or more helpers is required for the patient to complete the activity. If activity was not attempted, code reason: 7-Patient Refused. 9-Not Applicable-not attempted and the patient did not perform the activity before the current illness, exacerbation or injury. 10-Not Attempted due to Environmental Limitations-(lack of equipment, weather restraints, etc.). 88-Not Attempted due to Medical Conditions or Safety Concerns. Sit to Stand (QC): 3 Chair/Ixl-fm-Wbiwt Xfer(QC): 4 min to mod assist for sit to stand depending on the height of the surface she is standing from, CGA for transfers using a rolling walker. Initially assist OT with bathing and dressing with positioning and safety. When done she transfers to and goes to therapy gym. Gait Training Distance: 10'x2, 15' Walk 10 feet (QC): 4 Gait Assistive Device: FWW WC follow, slow, knees seem a little more stable. Patient is very SOB and fatigued after each bout of ambulation, her O2 drops into the 80's with it but comes back up fairly quickly with rest. Exercises Seated Therapy Exercises: Ankle pumps, Long arc quads, Hip flexion, Hip abd/add (with RTB and ball) NuStep Minutes: 15 NuStep Workload: 4 Treatments PT performed LE strengthening, transfers, ambulation, positioning and safety during activity, OT performed bathing, dressing, UE positioning and safety during activity. Assessment Current Status: Fair Progress slow progress but is showing improvement PT Short Term Goals Short Term Goals Time Frame: Apr 27, 2021 Roll Left & Right: 6 Sit to lyin Lying to sitting on side of be: 4 Sit to stand: 3 Chair/lfq-ut-ikdav transfer: 4 Walk 10 feet: 4 Walk 50 feet with two turns: 3 PT Storm Door Maker Goals Storm Door Maker Goals PT Storm Door Maker Goals Time Frame: May 11, 2021 Roll Left & Right (QC): 6 Sit to Lying (QC): 4 Lying-Sitting on Side/Bed(QC): 5 Sit to Stand (QC): 4 Chair/Qhc-ik-Mkpdy Xfer(QC): 5 Toilet Transfer (QC): 5 Car Transfer (QC): 4 Does the Patient Walk: Yes Walk 10 feet (QC): 4 Walk 50ft with 2 Turns (QC): 4 Walk 150 ft (QC): 4 Walking 10ft on Uneven Surface: 4 1 Step (curb) (QC): 4 4 Steps (QC): 4 12 Steps (QC): 88 Picking up an Object (QC): 4 Wheel 50 feet with 2 turns (QC: 9 Wheel 150 feet: 9 PT Plan Problem List Problem List: Activity Tolerance, Functional Strength, Safety, Balance, Gait, Transfer, Bed Mobility, ROM Treatment/Plan Treatment Plan: Continue Plan of Care Treatment Plan: Bed Mobility, Education, Functional Activity Karley, Functional Strength, Group Therapy, Gait, Safety, Therapeutic Exercise, Transfers Treatment Duration: May 11, 2021 Frequency: At least 5 of 7 days/Wk (IRF) Estimated Hrs Per Day: 1.5 hours per day Patient and/or Family Agrees t: Yes Safety Risks/Education Patient Education: Gait Training, Transfer Techniques, Correct Positioning, Safety Issues Teaching Recipient: Patient Teaching Methods: Demonstration, Discussion Response to Teaching: Reinforcement Needed Time/GCodes Time In: 0900 Time Out: 1030 Total Billed Treatment Time: 90 Total Billed Treatment 1 visit FA 60' EX 30' co-treated with OT from [id number] WALLACE ROD PT Apr 22, 2021 10:30
--- NOTE | 2021-04-22 12:23 | PM&R Progress Note ---
Subjective HPI/CC On Admission Date Seen by Provider: Apr 22, 2021 Time Seen by Provider: 12:30 Subjective/Events-last exam 04/22/2021: Pt doing really well Bowels are moving Checked meds and labs Oxygen at 0.5 liters 04/21/2021: Pt doing a lot better Using ldh-ou-ukbyk Walks ten feet with a walker Oxygen at half a liter Feet are really cracked - will place lotion Hgb 9.3 INR 1.5 Heart rate in the 90s since Cardizem was increased Slum score is 2930 Review of Systems General: Fatigue, Malaise Neurological: Weakness Objective Exam Vital Signs Vital Signs Date Time Temp Pulse Resp B/P (MAP) Pulse Ox O2 Delivery O2 Flow Rate FiO2 04/22/21 21:01 93 Nasal Cannula 0.50 04/22/21 20:30 35.5 84 18 100/53 (69) Capillary Refill : General Appearance: No Apparent Distress, WD/WN, Chronically ill HEENT: PERRL/EOMI, Normal ENT Inspection, Pharynx Normal Neck: Full Range of Motion, Normal Inspection, Non Tender, Supple, Carotid Bruit Respiratory: Chest Non Tender, Lungs Clear, No Accessory Muscle Use, No Respiratory Distress, Decreased Breath Sounds Cardiovascular: No Edema, No Gallop, No JVD, No Murmur, Normal Peripheral Pulses, Irregularly Irregular, Tachycardia Gastrointestinal: Normal Bowel Sounds, No Organomegaly, No Pulsatile Mass, Soft, Tenderness Back: Normal Inspection, No CVA Tenderness, No Vertebral Tenderness Extremity: Normal Capillary Refill, Normal Inspection, Normal Range of Motion, Non Tender, No Calf Tenderness, No Pedal Edema Neurologic/Psychiatric: Alert, Oriented x3, No Motor/Sensory Deficits, Normal Mood/Affect, Abnormal Gait (Unable to ambulate), Motor Weakness (Generalized) Skin: Normal Color, Warm/Dry Lymphatic: No Adenopathy Results/Procedures Lab Patient resulted labs reviewed. FIM Transfers Therapy Code Descriptions/Definitions Functional [place] Measure: 0=Not Assessed/NA 4=Minimal Assistance 1=Total Assistance 5=Supervision or Setup 2=Maximal Assistance 6=Modified [place] 3=Moderate Assistance 7=Complete IndependenceSCALE: Activities may be completed with or without assistive devices. 2-Zerabossia-vnnuker completes the activity by him/herself with no assistance from a helper. 5-Set-up or Clean-up Assistance-helper sets up or cleans up; patient completes activity. [place] assists only prior to or following the activity. 4-Supervision or Touching Assistance-helper provides verbal cues and/or touching/steadying and/or contact guard assistance as patient completes activity. Assistance may be provided throughout the activity or intermittently. 3-Partial/Moderate Assistance-helper does LESS THAN HALF the effort. [place] lifts, holds or supports trunk or limbs, but provides less than half the effort. 2-Substantial/Maximal Assistance-helper does MORE THAN HALF the effort. [place] lifts or holds trunk or limbs and provides more than half the effort. 7-Zoiieunwu-ednikd does ALL the effort. Patient does none of the effort to complete the activity. Or, the assistance of 2 or more helpers is required for the patient to complete the activity. If activity was not attempted, code reason: 7-Patient Refused. 9-Not Applicable-not attempted and the patient did not perform the activity before the current illness, exacerbation or injury. 10-Not Attempted due to Environmental Limitations-(lack of equipment, weather restraints, etc.). 88-Not Attempted due to Medical Conditions or Safety Concerns. Roll Left to Right (QC): 5 Sit to Lying (QC): 4 Sit to Stand (QC): 3 Chair/Djn-wu-Ajrzf Xfer(QC): 4 Car Transfer (QC): 88 Gait Training Does the Patient Walk?: Yes Distance: 10'x2, 15' Walk 10 feet (QC): 4 Walk 50 ft with 2 Turns(QC): 88 Walk 150 ft (QC): 88 Walking 10ft/uneven surface-QC: 88 Gait Persons Needed: 1 Gait Assistive Device: FWW Wheelchair Training Does the Pt Use a Wheelchair?: Yes Distance: 100' Wheel 50 ft with 2 turns (QC): 3 Wheel 150 ft (QC): 88 Type of Wheelchair: Manual Stair Training 1 Step (curb) (QC): 88 4 Steps (QC): 88 12 Steps (QC): 88 Balance Picking up an Object (QC): 88 ADL-Treatment Eating (QC): 5 (Set up assist per pt report.) Oral Hygiene (QC): 6 (IND seated at sink.) Shower/Bathe Self (QC): 3 (Min A with washing bilateral feet and buttocks. Pt able to wash all other parts.) Upper Body Dressing (QC): 5 (set up assist with loin puller gown.) Lower Body Dressing (QC): 2 (Pt able to thread brief over toes on RLE, assist to thread past heel. Assist to thread LLE and assist with pant hike. Max A sit to stand for pant hike.) On/Off Footwear (QC): 2 (Pt doffed socks using fuel agent with slight assistance and cues. Assist to don bilateral socks and shoes.) Toileting Hygiene (QC): 2 (Assist to manage pants down/up, pt able to wash periarea and assist with some clothing management. Assistance with washing buttocks.) Assessment/Plan Assessment and Plan Assess & Plan/Chief Complaint Assessment: Critical illness myopathy Chronic atrial fibrillation not rate controlled consulting Dr. Marshall Urinary retention now resolved ADAIR drain in place consulting Dr. Gamez Subtherapeutic INR 1.5 Coumadin anticoagulation Plan: Supportive care Rehab protocol Consult Dr. Gamez Consult Dr. Marshall 04/21/2021: Supportive care Appreciate cardiology Appreciate general surgery 04/22/2021: Wean oxygen Supportive care (1) Gastric ulcer with perforation (2) Atrial fibrillation (3) Warfarin anticoagulation (4) Urinary retention (5) Diabetes (6) Myopathy JARON RBANNON DO Apr 22, 2021 12:23
[2021-04-22] MEDS: warFARin 2.5 MG (COUMADIN) TAB PO SCH (17:40)
[2021-04-22 20:30] VITALS: BP 100/53
[2021-04-23 06:13] LABS: INR 1.5 (0.8-1.4); PROTHROMBIN TIME PATIENT 18.6 SEC (12.2-14.7)
[2021-04-23] MEDS: MULTIVIT W/MINERALS TAB (THERAGRAN M) PO SCH (06:30)
[2021-04-23] MEDS: SENNA W/DOCUSATE (SENOKOT S) TABLET PO SCH ×2 (08:22→20:52)
[2021-04-23] MEDS: PIOGLITAZONE 30MG (ACTOS) TAB PO SCH (08:22)
[2021-04-23] MEDS: EUCERIN CREAM 4 OZ JAR (HYDROCERIN) TP SCH ×2 (08:22→20:54)
[2021-04-23] MEDS: DOCUSATE SODIUM 100 MG (COLACE) CAP PO SCH ×2 (08:22→20:52)
[2021-04-23] MEDS: polyethylene glycoL POWDER 17 GM (MIRALAX) PACK PO SCH ×2 (08:23→20:54)
[2021-04-23 08:24] VITALS: BP 114/76
[2021-04-23] MEDS: meTOproloL SUCCINATE 50 MG (TOPROL XL) TAB PO SCH (08:24)
[2021-04-23] MEDS: ALLOPURINOL 100 MG (ZYLOPRIM) TAB PO SCH (08:46)
--- NOTE | 2021-04-23 08:56 | Occupational Ther Daily Note ---
OT Current Status-Daily Note Subjective Pt agreeable to OT Tx. States her night was better last night. Mental Status/Objective Patient Orientation: Person, Place, Time, Situation Attachments: Oxygen (.5L) ADL-Treatment Therapy Code Descriptions/Definitions Functional [place] Measure: 0=Not Assessed/NA 4=Minimal Assistance 1=Total Assistance 5=Supervision or Setup 2=Maximal Assistance 6=Modified [place] 3=Moderate Assistance 7=Complete IndependenceSCALE: Activities may be completed with or without assistive devices. 0-Qkfxbwmeax-slkxncm completes the activity by him/herself with no assistance from a helper. 5-Set-up or Clean-up Assistance-helper sets up or cleans up; patient completes activity. [place] assists only prior to or following the activity. 4-Supervision or Touching Assistance-helper provides verbal cues and/or touching/steadying and/or contact guard assistance as patient completes activity. Assistance may be provided throughout the activity or intermittently. 3-Partial/Moderate Assistance-helper does LESS THAN HALF the effort. [place] lifts, holds or supports trunk or limbs, but provides less than half the effort. 2-Substantial/Maximal Assistance-helper does MORE THAN HALF the effort. [place] lifts or holds trunk or limbs and provides more than half the effort. 8-Kvnvpkalo-aowevb does ALL the effort. Patient does none of the effort to complete the activity. Or, the assistance of 2 or more helpers is required for the patient to complete the activity. If activity was not attempted, code reason: 7-Patient Refused. 9-Not Applicable-not attempted and the patient did not perform the activity before the current illness, exacerbation or injury. 10-Not Attempted due to Environmental Limitations-(lack of equipment, weather restraints, etc.). 88-Not Attempted due to Medical Conditions or Safety Concerns. Oral Hygiene (QC): 7 On/Off Footwear: 2 (Max A donning gripper socks and shoes using sock aide, supervisor fruit grading and LH shoe horn.) Other Treatment [id number]: Pt seated in recliner, agreeable to OT Tx. Pt's nurse present to provide medications. Pt required assistance with placing medications in her mouth due to decreased vision and decreased sensation in fingers. Pt then able to swallow pills with her drink. Pt educated on AE for footwear including sock aide, supervisor fruit grading and LH shoe horn. Pt required max A with donning socks and shoes. Pt transferred from recliner, mod A sit to stand, then transferred to w/c. Pt propelled w/c to therapy gym. In order to increase BUE fine motor strength and c oordination, pt removed beads from moderate resistance theraputty. Pt able to locate all beads without cues. Pt then placed/removed graded clothespins (1- 5lbs), first with R hand, then with L hand. [id number]: OT/PT cotreat due to skill of 2 clinicians required which a ekg/ecg technician could not perform in order to coordinate UE/LEs, decrease fall risk, address safety concerns and due to pt's limitations in transfers/mobility, strength and activity tolerance. OT focused on UE placement, cues for sequencing and safety, and assist with transfers/mobility. PT focused on LE placement, transfers and mobility and overall gross movement. Pt completed functional sit to stand transfers between chair and therapy mat, requiring rest breaks between. Post tx, pt in therapy gym with PT, all needs met. Education OT Patient Education: Correct positioning, Energy conservation, Exercise program, Modified ADL techniques, Progress toward Goal/Update tx plan, Purpose of tx/functional activities, Rehab process, Safety issues, Transfer techniques Teaching Recipient: Patient Teaching Methods: Discussion Response to Teaching: Verbalize Understanding OT Short Term Goals Short Term Goals Time Frame: May 05, 2021 Toileting hygiene: 3 Shower/bathe self: 3 Lower body dressin Putting on/taking off footwear: 3 OT Reference Librarian Goals Half-Way Goals Time Frame: May 14, 2021 Eating (QC): 6 Oral Hygiene (QC): 6 Toileting Hygiene (QC): 6 Shower/Bathe Self (QC): 5 Upper Body Dressing (QC): 5 Lower Body Dressing (QC): 4 On/Off Footwear (QC): 4 Additional Goals: 1-Demonstrate ADL Tasks, 2-Verbalize Understanding, 3- ImproveStrength/Karley 1=Demonstrate adherence to instructed precautions during ADL tasks. 2=Patient will verbalize/demonstrate understanding of assistive devices/modifications for ADL. 3=Patient will improve strength/tolerance for activity to enable patient to perform ADL's. OT Education/Plan Problem List/Assessment Assessment: Decreased Activ Tolerance, Decreased UE Strength, Impaired Funct Balance, Impaired I ADL's, Impaired Self-Care Skills Discharge Recommendations Plan/Recommendations: Continue POC Treatment Plan/Plan of Care Patient would benefit from OT for education, treatment and training to promote independence in ADL's, mobility, safety and/or upper extremity function for ADL's. Plan of Care: ADL Retraining, Functional Mobility, Group Exercise/Act as Ind, UE Funct Exercise/Act Treatment Duration: May 14, 2021 Frequency: At least 5 of 7 days/Wk (IRF) Estimated Hrs Per Day: 1.5 hours per day Agreement: Yes Rehab Potential: Good Time/GCodes Start Time: 08:00 Stop Time: 09:30 Total Time Billed (hr/min): 90 Billed Treatment Time [id number] OT tx, [id number] OT/PT cotreat 1, ADL 3 (40'), FA 3 (50') VANNESA PATEL OT Apr 23, 2021 08:56
--- NOTE | 2021-04-23 09:53 | Cardiology Progress Note ---
Subjective Date Seen by Provider: Apr 23, 2021 Time Seen by Provider: 09:51 Subjective/Events-last exam Patient was seen during physical therapy session, has been doing well. No new complaint Review of Systems General: No Chills, No Night Sweats, No Fatigue, No Malaise, No Appetite, No Other HEENT: No Head Aches, No Visual Changes, No Eye Pain, No Ear Pain, No Dysphasia, No Sinus Congestion, No Post Nasal Drip, No Sore Throat, No Other Pulmonary: No Dyspnea, No Cough, No Pleuritic Chest Pain, No Other Cardiovascular: No: Chest Pain, Palpitations, Orthopnea, Paroxysmal Noc. Dyspnea, Edema, Lt Headedness, Other Objective-Cardiology Exam Last Set of Vital Signs Vital Signs 04/22/21 04/22/21 20:30 21:01 Temp 35.5 Pulse 84 Resp 18 B/P (MAP) 100/53 (69) Pulse Ox 93 O2 Delivery Nasal Cannula O2 Flow Rate 0.50 I&O Intake and Output 04/23/21 00:00 Intake Total 850 ml Output Total 500 ml Balance 350 ml Intake Oral 850 ml Output Urine Total 500 ml # Voids 3 # Bowel Movements 2 General: Alert, Oriented X3, Cooperative HEENT: Atraumatic, PERRLA Neck: Supple, No JVD, No Thyromegaly Lungs: Clear to Auscultation, Normal Air Movement Heart: Normal S1, Normal S2, Other (irregularly irregular, slightly tachycar dic) Abdomen: Normal Bowel Sounds, Soft Skin: No Rashes, No Significant Lesion Neuro: Normal Speech Psych/Mental Status: Mental Status NL, Mood NL A/P-Cardiology Admission Diagnosis Persistent atrial fibrillation Tachycardia Perforated ulcer Pleural effusion Assessment/Plan Persistent atrial fibrillation, on rate control medication, maintained on Cardizem CD to 240mg daily still slightly tachycardic, I will change Atenolol to Toprol XL, conitnue to monitor. Monitor blood pressure. Maintained on coumadin, I am increasing the Coumadin dose to 2.5 mg 4 days a week and 5 mg 3 days a week, continue to monitor INR Echocardiogram showed normal LV size, EF 55%, left atrial dilation, moderate to severe tricuspid regurgitation, moderate mitral regurgitation, pulmonary hypertension with PA pressure 50 mmHg Perforated ulcer, status post repair, had complication post surgery with continuous leak. Currently better. Continue to monitor Left-sided pleural effusion noted incidentally on her echo. CXR showing moderate bilat pleural effusion. Hypertension, continue current medication and monitor blood pressure Generalized weakness, receiving physical therapy. TC TUCKER MD Apr 23, 2021 09:53
--- NOTE | 2021-04-23 10:02 | Physical Therapy Daily Note ---
PT Daily Note-Current Subjective Pt. with OT upon arrival. Agrees to 30 min PT OT co Rx for sit to stands and TRF emphasis. Pt. states she is using less O2 with O2 sats steady >90% but still occas feels SOB . No c/o pain Pain Location: No Pain Reported Appearance bilat LE edema noted as well as diminished sensation Mental Status Patient Orientation: Normal For Age Attachments: Oxygen (0.5L) Transfers SCALE: Activities may be completed with or without assistive devices. 0-Npicvdvuqq-kzfrezy completes the activity by him/herself with no assistance from a helper. 5-Set-up or Clean-up Assistance-helper sets up or cleans up; patient completes activity. [place] assists only prior to or following the activity. 4-Supervision or Touching Assistance-helper provides verbal cues and/or touching/steadying and/or contact guard assistance as patient completes activity. Assistance may be provided throughout the activity or intermittently. 3-Partial/Moderate Assistance-helper does LESS THAN HALF the effort. [place] lifts, holds or supports trunk or limbs, but provides less than half the effort. 2-Substantial/Maximal Assistance-helper does MORE THAN HALF the effort. [place] lifts or holds trunk or limbs and provides more than half the effort. 4-Uzubxusjd-aelfdk does ALL the effort. Patient does none of the effort to complete the activity. Or, the assistance of 2 or more helpers is required for the patient to complete the activity. If activity was not attempted, code reason: 7-Patient Refused. 9-Not Applicable-not attempted and the patient did not perform the activity befo re the current illness, exacerbation or injury. 10-Not Attempted due to Environmental Limitations-(lack of equipment, weather re straints, etc.). 88-Not Attempted due to Medical Conditions or Safety Concerns. Roll Left & Right (QC): 5 Sit to Lying (QC): 4 Lying to Sitting/Side of Bed(Q: 5 Sit to Stand (QC): 3 Chair/Ybw-ya-Ypuac Xfer(QC): 3 sit to stand TRFs challenging for pt. this date, requiring mod assist and several failed attempts technique and positioning instruction given as well as insuring raised seat height Gait Training Does the Patient Walk?: Yes Walk 10 feet (QC): 4 Gait Persons Needed: 1 Gait Assistive Device: FWW 5ft, 25ft, 3ft, CGA with w/c close behind secondary to fatigue Wheelchair Training Does the Pt Use a Wheelchair?: Yes Wheel 50 ft with 2 turns (QC): 4 Type of Wheelchair: Manual Exercises Supine Ex: Bridging, Ankle pumps, Quad Set, Rolling, Glut sets, Lower trunk rotation, Heel Slides, Short Arc Quads, Scooting, Straight leg raise (assisted), Hip abd/add Supine Reps: 15 Seated Therapy Exercises: Ankle pumps, Sit to stand, Long arc quads, Hip flexion Seated Reps: 15 Treatments PT OT co Rx secondary to poor activity tolerance and need for 2 skilled clinicians for TRFs and funct act Assessment Current Status: Good Progress, Fair Progress PT Short Term Goals Short Term Goals Time Frame: Apr 27, 2021 Roll Left & Right: 6 Sit to lyin Lying to sitting on side of be: 4 Sit to stand: 3 Chair/zmb-sk-kkeum transfer: 4 Walk 10 feet: 4 Walk 50 feet with two turns: 3 PT Accounts Payable Specialist Goals Skilled Nursing Goals PT Skilled Nursing Goals Time Frame: May 11, 2021 Roll Left & Right (QC): 6 Sit to Lying (QC): 4 Lying-Sitting on Side/Bed(QC): 5 Sit to Stand (QC): 4 Chair/Ptk-pi-Jxnzz Xfer(QC): 5 Toilet Transfer (QC): 5 Car Transfer (QC): 4 Does the Patient Walk: Yes Walk 10 feet (QC): 4 Walk 50ft with 2 Turns (QC): 4 Walk 150 ft (QC): 4 Walking 10ft on Uneven Surface: 4 1 Step (curb) (QC): 4 4 Steps (QC): 4 12 Steps (QC): 88 Picking up an Object (QC): 4 Wheel 50 feet with 2 turns (QC: 9 Wheel 150 feet: 9 PT Plan Treatment/Plan Treatment Plan: Continue Plan of Care Treatment Plan: Bed Mobility, Education, Functional Activity Karley, Functional Strength, Group Therapy, Gait, Safety, Therapeutic Exercise, Transfers Treatment Duration: May 11, 2021 Frequency: At least 5 of 7 days/Wk (IRF) Estimated Hrs Per Day: 1.5 hours per day Patient and/or Family Agrees t: Yes Safety Risks/Education Patient Education: Gait Training, Transfer Techniques, Correct Positioning, W/C Management, Disease Process, Safety Issues Teaching Recipient: Patient Teaching Methods: Demonstration, Discussion Response to Teaching: Verbalize Understanding, Return Demonstration, Reinforcement Needed Time/GCodes Time In: 900 Time Out: 1000 Total Billed Treatment Time: 60 Total Billed Treatment 1,EX20m,FA25m,GT15m SUMAYA FLORES GARBAGE COLLECTOR DRIVER Apr 23, 2021 10:02
--- NOTE | 2021-04-23 11:27 | PM&R Progress Note ---
Subjective HPI/CC On Admission Date Seen by Provider: Apr 23, 2021 Time Seen by Provider: 11:30 Subjective/Events-last exam 04/23/2021: Pt doing really well Had a large BM last night Diclofenac gel will be ordered Tylenol will be ordered for the pain Has some hemorrhoids 04/22/2021: Pt doing really well Bowels are moving Checked meds and labs Oxygen at 0.5 liters 04/21/2021: Pt doing a lot better Using qyt-iw-owjfl Walks ten feet with a walker Oxygen at half a liter Feet are really cracked - will place lotion Hgb 9.3 INR 1.5 Heart rate in the 90s since Cardizem was increased Slum score is 29/30 Review of Systems General: Fatigue, Malaise Pulmonary: Dyspnea Objective Exam Vital Signs Vital Signs Date Time Temp Pulse Resp B/P (MAP) Pulse Ox O2 Delivery O2 Flow Rate FiO2 04/23/21 21:00 Nasal Cannula 0.50 04/23/21 20:00 36.2 83 18 99/65 (76) 95 Capillary Refill : General Appearance: No Apparent Distress, WD/WN, Chronically ill HEENT: PERRL/EOMI, Normal ENT Inspection, Pharynx Normal Neck: Full Range of Motion, Normal Inspection, Non Tender, Supple, Carotid Bruit Respiratory: Chest Non Tender, Lungs Clear, No Accessory Muscle Use, No Respiratory Distress, Decreased Breath Sounds Cardiovascular: No Edema, No Gallop, No JVD, No Murmur, Normal Peripheral Pulses, Irregularly Irregular, Tachycardia Gastrointestinal: Normal Bowel Sounds, No Organomegaly, No Pulsatile Mass, Soft, Tenderness Back: Normal Inspection, No CVA Tenderness, No Vertebral Tenderness Extremity: Normal Capillary Refill, Normal Inspection, Normal Range of Motion, Non Tender, No Calf Tenderness, No Pedal Edema Neurologic/Psychiatric: Alert, Oriented x3, No Motor/Sensory Deficits, Normal Mood/Affect, Abnormal Gait (Unable to ambulate), Motor Weakness (Generalized) Skin: Normal Color, Warm/Dry Lymphatic: No Adenopathy Results/Procedures Lab Patient resulted labs reviewed. FIM Transfers Therapy Code Descriptions/Definitions Functional [place] Measure: 0=Not Assessed/NA 4=Minimal Assistance 1=Total Assistance 5=Supervision or Setup 2=Maximal Assistance 6=Modified [place] 3=Moderate Assistance 7=Complete IndependenceSCALE: Activities may be completed with or without assistive devices. 0-Sppnhmfuyc-rpqvfoz completes the activity by him/herself with no assistance from a helper. 5-Set-up or Clean-up Assistance-helper sets up or cleans up; patient completes activity. [place] assists only prior to or following the activity. 4-Supervision or Touching Assistance-helper provides verbal cues and/or touching/steadying and/or contact guard assistance as patient completes activity. Assistance may be provided throughout the activity or intermittently. 3-Partial/Moderate Assistance-helper does LESS THAN HALF the effort. [place] lifts, holds or supports trunk or limbs, but provides less than half the effort. 2-Substantial/Maximal Assistance-helper does MORE THAN HALF the effort. [place] lifts or holds trunk or limbs and provides more than half the effort. 8-Ygmlxwoob-vznwkp does ALL the effort. Patient does none of the effort to complete the activity. Or, the assistance of 2 or more helpers is required for the patient to complete the activity. If activity was not attempted, code reason: 7-Patient Refused. 9-Not Applicable-not attempted and the patient did not perform the activity before the current illness, exacerbation or injury. 10-Not Attempted due to Environmental Limitations-(lack of equipment, weather restraints, etc.). 88-Not Attempted due to Medical Conditions or Safety Concerns. Roll Left to Right (QC): 5 Sit to Lying (QC): 4 Sit to Stand (QC): 3 Chair/Ztc-hg-Igrzp Xfer(QC): 3 Car Transfer (QC): 88 Gait Training Does the Patient Walk?: Yes Distance: 10'x2, 15' Walk 10 feet (QC): 4 Walk 50 ft with 2 Turns(QC): 88 Walk 150 ft (QC): 88 Walking 10ft/uneven surface-QC: 88 Gait Persons Needed: 1 Gait Assistive Device: FWW Wheelchair Training Does the Pt Use a Wheelchair?: Yes Distance: 100' Wheel 50 ft with 2 turns (QC): 4 Wheel 150 ft (QC): 88 Type of Wheelchair: Manual Stair Training 1 Step (curb) (QC): 88 4 Steps (QC): 88 12 Steps (QC): 88 Balance Picking up an Object (QC): 88 ADL-Treatment Eating (QC): 5 (Set up assist per pt report.) Oral Hygiene (QC): 7 Shower/Bathe Self (QC): 3 (Min A with washing bilateral feet and buttocks. Pt able to wash all other parts.) Upper Body Dressing (QC): 5 (set up assist with lathe puller gown.) Lower Body Dressing (QC): 2 (Pt able to thread brief over toes on RLE, assist to thread past heel. Assist to thread LLE and assist with pant hike. Max A sit to stand for pant hike.) On/Off Footwear (QC): 2 (Max A donning gripper socks and shoes using sock aide, inventory control/shipping receiving and LH shoe horn.) Toileting Hygiene (QC): 2 (Assist to manage pants down/up, pt able to wash periarea and assist with some clothing management. Assistance with washing bu ttocks.) Assessment/Plan Assessment and Plan Assess & Plan/Chief Complaint Assessment: Critical illness myopathy Chronic atrial fibrillation not rate controlled consulting Dr. Marshall Urinary retention now resolved ADAIR drain in place consulting Dr. Gamez Subtherapeutic INR 1.5 Coumadin anticoagulation Plan: Supportive care Rehab protocol Consult Dr. Gamez Consult Dr. Marshall 04/21/2021: Supportive care Appreciate cardiology Appreciate general surgery 04/22/2021: Wean oxygen Supportive care 04/23/2021: Supportive care Wean oxygen (1) Gastric ulcer with perforation (2) Atrial fibrillation (3) Warfarin anticoagulation (4) Urinary retention (5) Diabetes (6) Myopathy JARON BRANNON DO Apr 23, 2021 11:27
[2021-04-23] MEDS ORDERED: ACETAMINOPHEN 500 MG TAB (TYLENOL) PO PRN (12:15)
[2021-04-23] MEDS: DICLOFENAC 1% GEL 100 GM (VOLTAREN) TUBE TOP SCH ×3 (14:17→20:52)
--- NOTE | 2021-04-23 14:29 | Physical Therapy Daily Note ---
PT Daily Note-Current Subjective Patient in recliner pre tx, agrees to PT, has no complaints of pain. Appearance Patient in recliner post tx with nurse call, phone, tray, all needs met. Mental Status Patient Orientation: Person, Place, Situation Attachments: Oxygen Transfers SCALE: Activities may be completed with or without assistive devices. 9-Hxbctrhshn-xpfmxat completes the activity by him/herself with no assistance from a helper. 5-Set-up or Clean-up Assistance-helper sets up or cleans up; patient completes activity. [place] assists only prior to or following the activity. 4-Supervision or Touching Assistance-helper provides verbal cues and/or touching/steadying and/or contact guard assistance as patient completes activity. Assistance may be provided throughout the activity or intermittently. 3-Partial/Moderate Assistance-helper does LESS THAN HALF the effort. [place] lifts, holds or supports trunk or limbs, but provides less than half the effort. 2-Substantial/Maximal Assistance-helper does MORE THAN HALF the effort. [place] lifts or holds trunk or limbs and provides more than half the effort. 0-Oghxlettr-nfslsd does ALL the effort. Patient does none of the effort to complete the activity. Or, the assistance of 2 or more helpers is required for the patient to complete the activity. If activity was not attempted, code reason: 7-Patient Refused. 9-Not Applicable-not attempted and the patient did not perform the activity before the current illness, exacerbation or injury. 10-Not Attempted due to Environmental Limitations-(lack of equipment, weather restraints, etc.). 88-Not Attempted due to Medical Conditions or Safety Concerns. Exercises Seated Therapy Exercises: Ankle pumps, Long arc quads, Hip flexion, Hip abd/add Seated Reps: 20 sit to stand from slightly elevated surface x5 Treatments LE strengthening Assessment Current Status: Fair Progress slow progress with strength PT Short Term Goals Short Term Goals Time Frame: Apr 27, 2021 Roll Left & Right: 6 Sit to lyin Lying to sitting on side of be: 4 Sit to stand: 3 Chair/xue-qs-dhukr transfer: 4 Walk 10 feet: 4 Walk 50 feet with two turns: 3 PT Photographers' Model Goals Photographers' Model Goals PT Senior Care Goals Time Frame: May 11, 2021 Roll Left & Right (QC): 6 Sit to Lying (QC): 4 Lying-Sitting on Side/Bed(QC): 5 Sit to Stand (QC): 4 Chair/Gkz-da-Flyps Xfer(QC): 5 Toilet Transfer (QC): 5 Car Transfer (QC): 4 Does the Patient Walk: Yes Walk 10 feet (QC): 4 Walk 50ft with 2 Turns (QC): 4 Walk 150 ft (QC): 4 Walking 10ft on Uneven Surface: 4 1 Step (curb) (QC): 4 4 Steps (QC): 4 12 Steps (QC): 88 Picking up an Object (QC): 4 Wheel 50 feet with 2 turns (QC: 9 Wheel 150 feet: 9 PT Plan Problem List Problem List: Activity Tolerance, Functional Strength, Safety, Balance, Gait, Transfer, Bed Mobility, ROM Treatment/Plan Treatment Plan: Continue Plan of Care Treatment Plan: Bed Mobility, Education, Functional Activity Karley, Functional Strength, Group Therapy, Gait, Safety, Therapeutic Exercise, Transfers Treatment Duration: May 11, 2021 Frequency: At least 5 of 7 days/Wk (IRF) Estimated Hrs Per Day: 1.5 hours per day Patient and/or Family Agrees t: Yes Safety Risks/Education Patient Education: Correct Positioning, Safety Issues Teaching Recipient: Patient Teaching Methods: Demonstration, Discussion Response to Teaching: Reinforcement Needed Time/GCodes Time In: 1400 Time Out: 1430 Total Billed Treatment Time: 30 Total Billed Treatment 1 visit EX 30' WALLACE ROD PT Apr 23, 2021 14:29
[2021-04-23] MEDS: warFARin 2.5 MG (COUMADIN) TAB PO SCH ×2 (17:47)
[2021-04-23 20:00] VITALS: BP 99/65
[2021-04-24 06:44] LABS: INR 1.6 (0.8-1.4); PROTHROMBIN TIME PATIENT 19.5 SEC (12.2-14.7)
[2021-04-24] MEDS: MULTIVIT W/MINERALS TAB (THERAGRAN M) PO SCH (06:58)
[2021-04-24 07:49] VITALS: BP 111/60
[2021-04-24] MEDS: DICLOFENAC 1% GEL 100 GM (VOLTAREN) TUBE TOP SCH ×4 (07:51→23:52)
[2021-04-24] MEDS: SENNA W/DOCUSATE (SENOKOT S) TABLET PO SCH ×2 (07:52→21:59)
[2021-04-24] MEDS: PIOGLITAZONE 30MG (ACTOS) TAB PO SCH (07:52)
[2021-04-24] MEDS: meTOproloL SUCCINATE 50 MG (TOPROL XL) TAB PO SCH (07:52)
[2021-04-24] MEDS: ALLOPURINOL 100 MG (ZYLOPRIM) TAB PO SCH (07:52)
[2021-04-24] MEDS: DOCUSATE SODIUM 100 MG (COLACE) CAP PO SCH ×2 (07:52→21:59)
[2021-04-24] MEDS: EUCERIN CREAM 4 OZ JAR (HYDROCERIN) TP SCH ×2 (07:53→23:52)
--- NOTE | 2021-04-24 09:20 | PM&R Progress Note ---
Subjective HPI/CC On Admission Date Seen by Provider: Apr 24, 2021 Time Seen by Provider: 12:00 Subjective/Events-last exam 04/24/21: Patient doing well Guillermo wraps to lower extremities Diclofenac gel will be used INR 1.6 Bowels are moving well 04/23/2021: Pt doing really well Had a large BM last night Diclofenac gel will be ordered Tylenol will be ordered for the pain Has some hemorrhoids 04/22/2021: Pt doing really well Bowels are moving Checked meds and labs Oxygen at 0.5 liters 04/21/2021: Pt doing a lot better Using hox-ri-rgvsa Walks ten feet with a walker Oxygen at half a liter Feet are really cracked - will place lotion Hgb 9.3 INR 1.5 Heart rate in the 90s since Cardizem was increased Slum score is 29/30 Review of Systems General: Fatigue, Malaise Cardiovascular: Edema Objective Exam Vital Signs Vital Signs Date Time Temp Pulse Resp B/P (MAP) Pulse Ox O2 Delivery O2 Flow Rate FiO2 04/24/21 21:00 Room Air 04/24/21 20:00 36.1 85 16 111/57 (75) 95 04/23/21 21:00 0.50 Capillary Refill : General Appearance: No Apparent Distress, WD/WN, Chronically ill HEENT: PERRL/EOMI, Normal ENT Inspection, Pharynx Normal Neck: Full Range of Motion, Normal Inspection, Non Tender, Supple, Carotid Bruit Respiratory: Chest Non Tender, Lungs Clear, No Accessory Muscle Use, No Respiratory Distress, Decreased Breath Sounds Cardiovascular: No Gallop, No JVD, No Murmur, Normal Peripheral Pulses, Irregularly Irregular, Tachycardia Gastrointestinal: Normal Bowel Sounds, No Organomegaly, No Pulsatile Mass, Soft, Tenderness Back: Normal Inspection, No CVA Tenderness, No Vertebral Tenderness Extremity: Normal Capillary Refill, Normal Inspection, Normal Range of Motion, Non Tender, No Calf Tenderness, Pedal Edema Neurologic/Psychiatric: Alert, Oriented x3, No Motor/Sensory Deficits, Normal Mood/Affect, Abnormal Gait (Unable to ambulate), Motor Weakness (Generalized) Skin: Normal Color, Warm/Dry Lymphatic: No Adenopathy Results/Procedures Lab Patient resulted labs reviewed. FIM Transfers Therapy Code Descriptions/Definitions Functional [place] Measure: 0=Not Assessed/NA 4=Minimal Assistance 1=Total Assistance 5=Supervision or Setup 2=Maximal Assistance 6=Modified [place] 3=Moderate Assistance 7=Complete IndependenceSCALE: Activities may be completed with or without assistive devices. 4-Kiregqszng-lawvefl completes the activity by him/herself with no assistance from a helper. 5-Set-up or Clean-up Assistance-helper sets up or cleans up; patient completes activity. [place] assists only prior to or following the activity. 4-Supervision or Touching Assistance-helper provides verbal cues and/or touching/steadying and/or contact guard assistance as patient completes activity. Assistance may be provided throughout the activity or intermittently. 3-Partial/Moderate Assistance-helper does LESS THAN HALF the effort. [place] lifts, holds or supports trunk or limbs, but provides less than half the effort. 2-Substantial/Maximal Assistance-helper does MORE THAN HALF the effort. [place] lifts or holds trunk or limbs and provides more than half the effort. 2-Fbivxudtu-tvekct does ALL the effort. Patient does none of the effort to complete the activity. Or, the assistance of 2 or more helpers is required for the patient to complete the activity. If activity was not attempted, code reason: 7-Patient Refused. 9-Not Applicable-not attempted and the patient did not perform the activity before the current illness, exacerbation or injury. 10-Not Attempted due to Environmental Limitations-(lack of equipment, weather restraints, etc.). 88-Not Attempted due to Medical Conditions or Safety Concerns. Roll Left to Right (QC): 5 Sit to Lying (QC): 4 Sit to Stand (QC): 3 Chair/Ndr-og-Tarcm Xfer(QC): 3 Car Transfer (QC): 88 Gait Training Does the Patient Walk?: Yes Distance: 10'x2, 15' Walk 10 feet (QC): 4 Walk 50 ft with 2 Turns(QC): 88 Walk 150 ft (QC): 88 Walking 10ft/uneven surface-QC: 88 Gait Persons Needed: 1 Gait Assistive Device: FWW Wheelchair Training Does the Pt Use a Wheelchair?: Yes Distance: 100' Wheel 50 ft with 2 turns (QC): 4 Wheel 150 ft (QC): 88 Type of Wheelchair: Manual Stair Training 1 Step (curb) (QC): 88 4 Steps (QC): 88 12 Steps (QC): 88 Balance Picking up an Object (QC): 88 ADL-Treatment Eating (QC): 5 (Set up assist per pt report.) Oral Hygiene (QC): 7 Shower/Bathe Self (QC): 3 (Min A with washing bilateral feet and buttocks. Pt able to wash all other parts.) Upper Body Dressing (QC): 5 (set up assist with pin puller gown.) Lower Body Dressing (QC): 2 (Pt able to thread brief over toes on RLE, assist to thread past heel. Assist to thread LLE and assist with pant hike. Max A sit to stand for pant hike.) On/Off Footwear (QC): 2 (Max A donning gripper socks and shoes using sock aide, warehouse delivery driver and LH shoe horn.) Toileting Hygiene (QC): 2 (Assist to manage pants down/up, pt able to wash periarea and assist with some clothing management. Assistance with washing buttocks.) Assessment/Plan Assessment and Plan Assess & Plan/Chief Complaint Assessment: Critical illness myopathy Chronic atrial fibrillation not rate controlled consulting Dr. Marshall Urinary retention now resolved ADAIR drain in place consulting Dr. Gamez Subtherapeutic INR 1.5 Coumadin anticoagulation Plan: Supportive care Rehab protocol Consult Dr. Gamez Consult Dr. Marshall 04/21/2021: Supportive care Appreciate cardiology Appreciate general surgery 04/22/2021: Wean oxygen Supportive care 04/23/2021: Supportive care Wean oxygen 04/24/2021: Diclofenac gel Monitor INR Wrap legs (1) Gastric ulcer with perforation (2) Atrial fibrillation (3) Warfarin anticoagulation (4) Urinary retention (5) Diabetes (6) Myopathy JARON BRANNON DO Apr 24, 2021 09:20
[2021-04-24] MEDS: polyethylene glycoL POWDER 17 GM (MIRALAX) PACK PO SCH ×2 (09:24→21:00)
--- NOTE | 2021-04-24 09:31 | Physical Therapy Daily Note ---
PT Daily Note-Current Subjective Patient in recliner pre tx, agrees to PT, voices no complaints of pain at rest. Appearance Patient in recliner post tx with nurse call, phone, tray, all needs met. Mental Status Patient Orientation: Person, Place, Situation Attachments: Oxygen Transfers SCALE: Activities may be completed with or without assistive devices. 4-Ppptxeivun-cmzhgne completes the activity by him/herself with no assistance from a helper. 5-Set-up or Clean-up Assistance-helper sets up or cleans up; patient completes activity. [place] assists only prior to or following the activity. 4-Supervision or Touching Assistance-helper provides verbal cues and/or touching/steadying and/or contact guard assistance as patient completes activi ty. Assistance may be provided throughout the activity or intermittently. 3-Partial/Moderate Assistance-helper does LESS THAN HALF the effort. [place] lifts, holds or supports trunk or limbs, but provides less than half the effort. 2-Substantial/Maximal Assistance-helper does MORE THAN HALF the effort. [place] lifts or holds trunk or limbs and provides more than half the effort. 3-Kftzhfwsr-iikigl does ALL the effort. Patient does none of the effort to complete the activity. Or, the assistance of 2 or more helpers is required for the patient to complete the activity. If activity was not attempted, code reason: 7-Patient Refused. 9-Not Applicable-not attempted and the patient did not perform the activity before the current illness, exacerbation or injury. 10-Not Attempted due to Environmental Limitations-(lack of equipment, weather restraints, etc.). 88-Not Attempted due to Medical Conditions or Safety Concerns. Sit to Stand (QC): 3 Chair/Wye-qq-Laxjt Xfer(QC): 4 Patient needs min assist to stand from her elevated recliner but mod assist to stand from a normal chair Gait Training Distance: 20'x2 Walk 10 feet (QC): 4 Gait Persons Needed: 1 Gait Assistive Device: FWW slow, slumped posture, very SOB after bouts of ambulation, patient barely made it back to her recliner on the second walk, afterward her O2 was 98% and HR was 89bpm on .5L Treatments transfers, ambulation Assessment Current Status: Fair Progress slowly progressing endurance PT Short Term Goals Short Term Goals Time Frame: Apr 27, 2021 Roll Left & Right: 6 Sit to lyin Lying to sitting on side of be: 4 Sit to stand: 3 Chair/wcy-kt-ipvgj transfer: 4 Walk 10 feet: 4 Walk 50 feet with two turns: 3 PT Consulting Solution Manager Goals Consulting Solution Manager Goals PT Consulting Solution Manager Goals Time Frame: May 11, 2021 Roll Left & Right (QC): 6 Sit to Lying (QC): 4 Lying-Sitting on Side/Bed(QC): 5 Sit to Stand (QC): 4 Chair/Ois-wy-Djhwp Xfer(QC): 5 Toilet Transfer (QC): 5 Car Transfer (QC): 4 Does the Patient Walk: Yes Walk 10 feet (QC): 4 Walk 50ft with 2 Turns (QC): 4 Walk 150 ft (QC): 4 Walking 10ft on Uneven Surface: 4 1 Step (curb) (QC): 4 4 Steps (QC): 4 12 Steps (QC): 88 Picking up an Object (QC): 4 Wheel 50 feet with 2 turns (QC: 9 Wheel 150 feet: 9 PT Plan Problem List Problem List: Activity Tolerance, Functional Strength, Safety, Balance, Gait, Transfer, Bed Mobility, ROM Treatment/Plan Treatment Plan: Continue Plan of Care Treatment Plan: Bed Mobility, Education, Functional Activity [place], Functional Strength, Group Therapy, Gait, Safety, Therapeutic Exercise, Transfers Treatment Duration: May 11, 2021 Frequency: At least 5 of 7 days/Wk (IRF) Estimated Hrs Per Day: 1.5 hours per day Patient and/or Family Agrees t: Yes Safety Risks/Education Patient Education: Gait Training, Transfer Techniques, Correct Positioning, Safety Issues Teaching Recipient: Patient Teaching Methods: Demonstration, Discussion Response to Teaching: Reinforcement Needed Time/GCodes Time In: 0900 Time Out: 911 Total Billed Treatment Time: 12 Total Billed Treatment 1 visit GT 12' WALLACE ROD PT Apr 24, 2021 09:31
[2021-04-24] MEDS: warFARin 2.5 MG (COUMADIN) TAB PO SCH (17:32)
[2021-04-24 20:00] VITALS: BP 111/57
[2021-04-25 06:29] LABS: INR 1.7 (0.8-1.4); PROTHROMBIN TIME PATIENT 20.7 SEC (12.2-14.7)
[2021-04-25 07:18] VITALS: BP 114/70
[2021-04-25] MEDS: DOCUSATE SODIUM 100 MG (COLACE) CAP PO SCH ×2 (08:04→22:27)
[2021-04-25] MEDS: ALLOPURINOL 100 MG (ZYLOPRIM) TAB PO SCH (08:04)
[2021-04-25] MEDS: meTOproloL SUCCINATE 50 MG (TOPROL XL) TAB PO SCH (08:04)
[2021-04-25] MEDS: MULTIVIT W/MINERALS TAB (THERAGRAN M) PO SCH (08:04)
[2021-04-25] MEDS: PIOGLITAZONE 30MG (ACTOS) TAB PO SCH (08:04)
[2021-04-25] MEDS: EUCERIN CREAM 4 OZ JAR (HYDROCERIN) TP SCH ×2 (08:06→21:43)
[2021-04-25] MEDS: DICLOFENAC 1% GEL 100 GM (VOLTAREN) TUBE TOP SCH ×4 (08:06→21:43)
[2021-04-25] MEDS: polyethylene glycoL POWDER 17 GM (MIRALAX) PACK PO SCH ×2 (09:00→22:27)
[2021-04-25] MEDS: SENNA W/DOCUSATE (SENOKOT S) TABLET PO SCH ×2 (09:00→22:27)
--- NOTE | 2021-04-25 12:34 | PM&R Progress Note ---
Subjective HPI/CC On Admission Date Seen by Provider: Apr 25, 2021 Time Seen by Provider: 12:45 Subjective/Events-last exam 04/25/2021: Patient had a large bowel movement yesterday Doing very well Stamina is low but working hard Check meds and labs 04/24/21: Patient doing well Guillermo wraps to lower extremities Diclofenac gel will be used INR 1.6 Bowels are moving well 04/23/2021: Pt doing really well Had a large BM last night Diclofenac gel will be ordered Tylenol will be ordered for the pain Has some hemorrhoids 04/22/2021: Pt doing really well Bowels are moving Checked meds and labs Oxygen at 0.5 liters 04/21/2021: Pt doing a lot better Using jto-cz-yyonq Walks ten feet with a walker Oxygen at half a liter Feet are really cracked - will place lotion Hgb 9.3 INR 1.5 Heart rate in the 90s since Cardizem was increased Slum score is 29/30 Review of Systems General: Fatigue, Malaise Cardiovascular: Edema Objective Exam Vital Signs Vital Signs Date Time Temp Pulse Resp B/P (MAP) Pulse Ox O2 Delivery O2 Flow Rate FiO2 04/25/21 10:22 Room Air 0.00 04/25/21 07:18 36.0 102 20 114/70 (85) 95 Capillary Refill : General Appearance: No Apparent Distress, WD/WN, Chronically ill HEENT: PERRL/EOMI, Normal ENT Inspection, Pharynx Normal Neck: Full Range of Motion, Normal Inspection, Non Tender, Supple, Carotid Bruit Respiratory: Chest Non Tender, Lungs Clear, No Accessory Muscle Use, No Respiratory Distress, Decreased Breath Sounds Cardiovascular: No Gallop, No JVD, No Murmur, Normal Peripheral Pulses, Irregularly Irregular, Tachycardia Gastrointestinal: Normal Bowel Sounds, No Organomegaly, No Pulsatile Mass, Soft, Tenderness Back: Normal Inspection, No CVA Tenderness, No Vertebral Tenderness Extremity: Normal Capillary Refill, Normal Inspection, Normal Range of Motion, Non Tender, No Calf Tenderness, Pedal Edema Neurologic/Psychiatric: Alert, Oriented x3, No Motor/Sensory Deficits, Normal Mood/Affect, Abnormal Gait (Unable to ambulate), Motor Weakness (Generalized) Skin: Normal Color, Warm/Dry Lymphatic: No Adenopathy Results/Procedures Lab Patient resulted labs reviewed. FIM Transfers Therapy Code Descriptions/Definitions Functional [place] Measure: 0=Not Assessed/NA 4=Minimal Assistance 1=Total Assistance 5=Supervision or Setup 2=Maximal Assistance 6=Modified [place] 3=Moderate Assistance 7=Complete IndependenceSCALE: Activities may be completed with or without assistive devices. 7-Tdcwvbywyy-ahrfpkd completes the activity by him/herself with no assistance from a helper. 5-Set-up or Clean-up Assistance-helper sets up or cleans up; patient completes activity. [place] assists only prior to or following the activity. 4-Supervision or Touching Assistance-helper provides verbal cues and/or touching/steadying and/or contact guard assistance as patient completes activity. Assistance may be provided throughout the activity or intermittently. 3-Partial/Moderate Assistance-helper does LESS THAN HALF the effort. [place] lifts, holds or supports trunk or limbs, but provides less than half the effort. 2-Substantial/Maximal Assistance-helper does MORE THAN HALF the effort. [place] lifts or holds trunk or limbs and provides more than half the effort. 0-Pjphrmobw-npbwzp does ALL the effort. Patient does none of the effort to complete the activity. Or, the assistance of 2 or more helpers is required for the patient to complete the activity. If activity was not attempted, code reason: 7-Patient Refused. 9-Not Applicable-not attempted and the patient did not perform the activity before the current illness, exacerbation or injury. 10-Not Attempted due to Environmental Limitations-(lack of equipment, weather restraints, etc.). 88-Not Attempted due to Medical Conditions or Safety Concerns. Roll Left to Right (QC): 5 Sit to Lying (QC): 4 Sit to Stand (QC): 3 Chair/Pyn-wn-Htiwe Xfer(QC): 4 Car Transfer (QC): 88 Gait Training Does the Patient Walk?: Yes Distance: 20'x2 Walk 10 feet (QC): 4 Walk 50 ft with 2 Turns(QC): 88 Walk 150 ft (QC): 88 Walking 10ft/uneven surface-QC: 88 Gait Persons Needed: 1 Gait Assistive Device: FWW Wheelchair Training Does the Pt Use a Wheelchair?: Yes Distance: 100' Wheel 50 ft with 2 turns (QC): 4 Wheel 150 ft (QC): 88 Type of Wheelchair: Manual Stair Training 1 Step (curb) (QC): 88 4 Steps (QC): 88 12 Steps (QC): 88 Balance Picking up an Object (QC): 88 ADL-Treatment Eating (QC): 5 (Set up assist per pt report.) Oral Hygiene (QC): 7 Shower/Bathe Self (QC): 3 (Min A with washing bilateral feet and buttocks. Pt able to wash all other parts.) Upper Body Dressing (QC): 5 (set up assist with press puller gown.) Lower Body Dressing (QC): 2 (Pt able to thread brief over toes on RLE, assist to thread past heel. Assist to thread LLE and assist with pant hike. Max A sit to stand for pant hike.) On/Off Footwear (QC): 2 (Max A donning gripper socks and shoes using sock aide, computer software engineer and LH shoe horn.) Toileting Hygiene (QC): 2 (Assist to manage pants down/up, pt able to wash periarea and assist with some clothing management. Assistance with washing buttocks.) Assessment/Plan Assessment and Plan Assess & Plan/Chief Complaint Assessment: Critical illness myopathy Chronic atrial fibrillation not rate controlled consulting Dr. Marshall Urinary retention now resolved ADAIR drain in place consulting Dr. Gamez Subtherapeutic INR 1.5 Coumadin anticoagulation Plan: Supportive care Rehab protocol Consult Dr. Gamez Consult Dr. Marshall 04/21/2021: Supportive care Appreciate cardiology Appreciate general surgery 04/22/2021: Wean oxygen Supportive care 04/23/2021: Supportive care Wean oxygen 04/24/2021: Diclofenac gel Monitor INR Wrap legs 04/25/2021: Supportive care Wrap legs (1) Gastric ulcer with perforation (2) Atrial fibrillation (3) Warfarin anticoagulation (4) Urinary retention (5) Diabetes (6) Myopathy JARON BRANNON DO Apr 25, 2021 12:34
[2021-04-25] MEDS: warFARin 2.5 MG (COUMADIN) TAB PO SCH (17:29)
[2021-04-25 20:00] VITALS: BP 107/58
[2021-04-26 06:07] LABS: BASOPHILS # (AUTO) 0.1 10^3/uL (0.0-0.1); BASOPHILS % (AUTO) 1 % (0-10); EOSINOPHILS # (AUTO) 0.7 10^3/uL (0.0-0.3); EOSINOPHILS % (AUTO) 13 % (0-10); HEMATOCRIT 31 % (35-52); HEMOGLOBIN 9.5 g/dL (11.5-16.0); LYMPHOCYTES # (AUTO) 0.7 10^3/uL (1.0-4.0); LYMPHOCYTES % (AUTO) 13 % (12-44); MEAN CORPUSCULAR HEMOGLOBIN 22 pg (25-34); MEAN CORPUSCULAR HGB CONC 31 g/dL (32-36); MEAN CORPUSCULAR VOLUME 72 fL (80-99); MEAN PLATELET VOLUME 10.1 fL (9.0-12.2); MONOCYTES # (AUTO) 0.6 10^3/uL (0.0-1.0); MONOCYTES % (AUTO) 10 % (0-12); NEUTROPHILS # (AUTO) 3.4 10^3/uL (1.8-7.8); NEUTROPHILS % (AUTO) 62 % (42-75); PLATELET COUNT 408 10^3/uL (130-400); WHITE BLOOD COUNT 5.5 10^3/uL (4.3-11.0)
[2021-04-26 06:28] LABS: ALBUMIN 2.9 GM/DL (3.2-4.5)
[2021-04-26 06:29] LABS: POTASSIUM 4.3 MMOL/L (3.6-5.0)
[2021-04-26 06:30] LABS: CALCIUM 9.1 MG/DL (8.5-10.1); INR 1.8 (0.8-1.4); PROTHROMBIN TIME PATIENT 21.1 SEC (12.2-14.7)
[2021-04-26 06:31] LABS: TOTAL PROTEIN 6.4 GM/DL (6.4-8.2)
[2021-04-26 06:33] LABS: BILIRUBIN,TOTAL 0.5 MG/DL (0.1-1.0)
[2021-04-26 06:35] LABS: CREATININE SERUM 1.07 MG/DL (0.60-1.30)
[2021-04-26 06:57] LABS: BAND NEUTROPHILS 1 %; BURR CELLS SLIGHT; ELLIPT/OVALOCYTES SLIGHT; EOSINOPHILS % (MANUAL) 14 %; HYPOCHROMASIA SLIGHT; LYMPHOCYTES % (MANUAL) 8 %; MICROCYTOSIS MODERATE; MONOCYTES % (MANUAL) 6 %; NEUTROPHILS % (MANUAL) 71 %; TARGET CELLS SLIGHT
[2021-04-26 08:00] VITALS: BP 123/80
[2021-04-26] MEDS: EUCERIN CREAM 4 OZ JAR (HYDROCERIN) TP SCH ×2 (08:15→21:32)
[2021-04-26] MEDS: DICLOFENAC 1% GEL 100 GM (VOLTAREN) TUBE TOP SCH ×4 (08:16→21:32)
[2021-04-26] MEDS: meTOproloL SUCCINATE 50 MG (TOPROL XL) TAB PO SCH (08:16)
[2021-04-26] MEDS: ALLOPURINOL 100 MG (ZYLOPRIM) TAB PO SCH (08:16)
[2021-04-26] MEDS: PIOGLITAZONE 30MG (ACTOS) TAB PO SCH (08:16)
[2021-04-26] MEDS: MULTIVIT W/MINERALS TAB (THERAGRAN M) PO SCH (08:19)
[2021-04-26] MEDS: polyethylene glycoL POWDER 17 GM (MIRALAX) PACK PO SCH ×2 (08:59→19:40)
[2021-04-26] MEDS: SENNA W/DOCUSATE (SENOKOT S) TABLET PO SCH ×2 (08:59→19:45)
[2021-04-26] MEDS: DOCUSATE SODIUM 100 MG (COLACE) CAP PO SCH ×2 (08:59→19:45)
--- NOTE | 2021-04-26 09:14 | PM&R Progress Note ---
Subjective HPI/CC On Admission Date Seen by Provider: Apr 26, 2021 Time Seen by Provider: 09:15 Subjective/Events-last exam 04/26/21: Pt doing well INR 1.8 Hb 9.5 No major issues Checked meds and lab 04/25/2021: Patient had a large bowel movement yesterday Doing very well Stamina is low but working hard Check meds and labs 04/24/21: Patient doing well Guillermo wraps to lower extremities Diclofenac gel will be used INR 1.6 Bowels are moving well 04/23/2021: Pt doing really well Had a large BM last night Diclofenac gel will be ordered Tylenol will be ordered for the pain Has some hemorrhoids 04/22/2021: Pt doing really well Bowels are moving Checked meds and labs Oxygen at 0.5 liters 04/21/2021: Pt doing a lot better Using jfe-wk-hvitu Walks ten feet with a walker Oxygen at half a liter Feet are really cracked - will place lotion Hgb 9.3 INR 1.5 Heart rate in the 90s since Cardizem was increased Slum score is 29/30 Review of Systems General: Fatigue, Malaise Objective Exam Vital Signs Vital Signs Date Time Temp Pulse Resp B/P (MAP) Pulse Ox O2 Delivery O2 Flow Rate FiO2 04/26/21 20:31 Room Air 04/26/21 19:32 36.0 99 18 108/71 (83) 95 04/26/21 08:00 0.50 Capillary Refill : General Appearance: No Apparent Distress, WD/WN, Chronically ill HEENT: PERRL/EOMI, Normal ENT Inspection, Pharynx Normal Neck: Full Range of Motion, Normal Inspection, Non Tender, Supple, Carotid Bruit Respiratory: Chest Non Tender, Lungs Clear, No Accessory Muscle Use, No Respiratory Distress, Decreased Breath Sounds Cardiovascular: No Gallop, No JVD, No Murmur, Normal Peripheral Pulses, Irregularly Irregular, Tachycardia Gastrointestinal: Normal Bowel Sounds, No Organomegaly, No Pulsatile Mass, Soft, Tenderness Back: Normal Inspection, No CVA Tenderness, No Vertebral Tenderness Extremity: Normal Capillary Refill, Normal Inspection, Normal Range of Motion, Non Tender, No Calf Tenderness, Pedal Edema Neurologic/Psychiatric: Alert, Oriented x3, No Motor/Sensory Deficits, Normal Mood/Affect, Abnormal Gait (Unable to ambulate), Motor Weakness (Generalized) Skin: Normal Color, Warm/Dry Lymphatic: No Adenopathy Results/Procedures Lab Laboratory Tests 04/26/21 05:15 Patient resulted labs reviewed. FIM Transfers Therapy Code Descriptions/Definitions Functional [place] Measure: 0=Not Assessed/NA 4=Minimal Assistance 1=Total Assistance 5=Supervision or Setup 2=Maximal Assistance 6=Modified [place] 3=Moderate Assistance 7=Complete IndependenceSCALE: Activities may be completed with or without assistive devices. 2-Hlrdxyjxmv-olcfxhj completes the activity by him/herself with no assistance from a helper. 5-Set-up or Clean-up Assistance-helper sets up or cleans up; patient completes activity. [place] assists only prior to or following the activity. 4-Supervision or Touching Assistance-helper provides verbal cues and/or touching/steadying and/or contact guard assistance as patient completes activity. Assistance may be provided throughout the activity or intermittently. 3-Partial/Moderate Assistance-helper does LESS THAN HALF the effort. [place] lifts, holds or supports trunk or limbs, but provides less than half the effort. 2-Substantial/Maximal Assistance-helper does MORE THAN HALF the effort. [place] lifts or holds trunk or limbs and provides more than half the effort. 9-Tienavmjq-pnubqi does ALL the effort. Patient does none of the effort to complete the activity. Or, the assistance of 2 or more helpers is required for the patient to complete the activity. If activity was not attempted, code reason: 7-Patient Refused. 9-Not Applicable-not attempted and the patient did not perform the activity before the current illness, exacerbation or injury. 10-Not Attempted due to Environmental Limitations-(lack of equipment, weather restraints, etc.). 88-Not Attempted due to Medical Conditions or Safety Concerns. Roll Left to Right (QC): 5 Sit to Lying (QC): 4 Sit to Stand (QC): 3 Chair/Gkq-bj-Felmg Xfer(QC): 4 Car Transfer (QC): 88 Gait Training Does the Patient Walk?: Yes Distance: 20'x2 Walk 10 feet (QC): 4 Walk 50 ft with 2 Turns(QC): 88 Walk 150 ft (QC): 88 Walking 10ft/uneven surface-QC: 88 Gait Persons Needed: 1 Gait Assistive Device: FWW Wheelchair Training Does the Pt Use a Wheelchair?: Yes Distance: 100' Wheel 50 ft with 2 turns (QC): 4 Wheel 150 ft (QC): 88 Type of Wheelchair: Manual Stair Training 1 Step (curb) (QC): 88 4 Steps (QC): 88 12 Steps (QC): 88 Balance Picking up an Object (QC): 88 ADL-Treatment Eating (QC): 5 (Set up assist per pt report.) Oral Hygiene (QC): 7 Shower/Bathe Self (QC): 3 (Min A with washing bilateral feet and buttocks. Pt able to wash all other parts.) Upper Body Dressing (QC): 5 (set up assist with cotton puller gown.) Lower Body Dressing (QC): 2 (Pt able to thread brief over toes on RLE, assist to thread past heel. Assist to thread LLE and assist with pant hike. Max A sit to stand for pant hike.) On/Off Footwear (QC): 2 (Max A donning gripper socks and shoes using sock aide, automotive parts clerk and LH shoe horn.) Toileting Hygiene (QC): 2 (Assist to manage pants down/up, pt able to wash periarea and assist with some clothing management. Assistance with washing buttocks.) Assessment/Plan Assessment and Plan Assess & Plan/Chief Complaint Assessment: Critical illness myopathy Chronic atrial fibrillation not rate controlled consulting Dr. Marshall Urinary retention now resolved ADAIR drain in place consulting Dr. Gamez Subtherapeutic INR 1.5 Coumadin anticoagulation Plan: Supportive care Rehab protocol Consult Dr. Gamez Consult Dr. Marshall 04/21/2021: Supportive care Appreciate cardiology Appreciate general surgery 04/22/2021: Wean oxygen Supportive care 04/23/2021: Supportive care Wean oxygen 04/24/2021: Diclofenac gel Monitor INR Wrap legs 04/25/2021: Supportive care Wrap legs 04/26/21/: Monitor INR Supportive care (1) Gastric ulcer with perforation (2) Atrial fibrillation (3) Warfarin anticoagulation (4) Urinary retention (5) Diabetes (6) Myopathy JARON BRANNON DO Apr 26, 2021 09:14
--- NOTE | 2021-04-26 09:59 | Physical Therapy Daily Note ---
PT Daily Note-Current Subjective Patient in recliner pre tx, agrees to PT, voices on complaints of pain. Will be co-treating with OT for part of tx due to poor patient mobility, strength, endurance, severe debility, severe SOB with activity, coordinate UE and LE during activity, safety and reduce risk of falls. Patient will do a shower and dressing. Appearance Patient in therapy gym post tx, will continue for a bit with OT Mental Status Patient Orientation: Person, Place, Situation Attachments: Oxygen Transfers SCALE: Activities may be completed with or without assistive devices. 4-Eewqvsiqut-rykgyxq completes the activity by him/herself with no assistance from a helper. 5-Set-up or Clean-up Assistance-helper sets up or cleans up; patient completes activity. [place] assists only prior to or following the activity. 4-Supervision or Touching Assistance-helper provides verbal cues and/or touching/steadying and/or contact guard assistance as patient completes activity. Assistance may be provided throughout the activity or intermittently. 3-Partial/Moderate Assistance-helper does LESS THAN HALF the effort. [place] lifts, holds or supports trunk or limbs, but provides less than half the effort. 2-Substantial/Maximal Assistance-helper does MORE THAN HALF the effort. [place] lifts or holds trunk or limbs and provides more than half the effort. 6-Ogwvpvygc-rytvks does ALL the effort. Patient does none of the effort to complete the activity. Or, the assistance of 2 or more helpers is required for the patient to complete the activity. If activity was not attempted, code reason: 7-Patient Refused. 9-Not Applicable-not attempted and the patient did not perform the activity before the current illness, exacerbation or injury. 10-Not Attempted due to Environmental Limitations-(lack of equipment, weather restraints, etc.). 88-Not Attempted due to Medical Conditions or Safety Concerns. Sit to Stand (QC): 3 Chair/Hrz-yq-Sjeak Xfer(QC): 4 Patient needs min to mod assist for sit to stand depending on the height of the surface she is standing from Gait Training Distance: 20'x2 Walk 10 feet (QC): 4 Gait Assistive Device: FWW WC follow, unsteady, SOB afterward Treatments PT performed transfers, ambulation (also ambulated 10' into the restroom to the shower bench), standing and positioning during bathing and dressing, OT performed bathing, dressing, UE positioning and safety during activity Assessment Current Status: Fair Progress improved sit to stand, still very SOB with activity PT Short Term Goals Short Term Goals Time Frame: Apr 27, 2021 Roll Left & Right: 6 Sit to lyin Lying to sitting on side of be: 4 Sit to stand: 3 Chair/nfl-ec-ygdcf transfer: 4 Walk 10 feet: 4 Walk 50 feet with two turns: 3 PT Engineering Supplies Sales Goals Mcc Goals PT Mcc Goals Time Frame: May 11, 2021 Roll Left & Right (QC): 6 Sit to Lying (QC): 4 Lying-Sitting on Side/Bed(QC): 5 Sit to Stand (QC): 4 Chair/Xah-qq-Kjnkq Xfer(QC): 5 Toilet Transfer (QC): 5 Car Transfer (QC): 4 Does the Patient Walk: Yes Walk 10 feet (QC): 4 Walk 50ft with 2 Turns (QC): 4 Walk 150 ft (QC): 4 Walking 10ft on Uneven Surface: 4 1 Step (curb) (QC): 4 4 Steps (QC): 4 12 Steps (QC): 88 Picking up an Object (QC): 4 Wheel 50 feet with 2 turns (QC: 9 Wheel 150 feet: 9 PT Plan Problem List Problem List: Activity Tolerance, Functional Strength, Safety, Balance, Gait, Transfer, Bed Mobility, ROM Treatment/Plan Treatment Plan: Continue Plan of Care Treatment Plan: Bed Mobility, Education, Functional Activity Karley, Functional Strength, Group Therapy, Gait, Safety, Therapeutic Exercise, Transfers Treatment Duration: May 11, 2021 Frequency: At least 5 of 7 days/Wk (IRF) Estimated Hrs Per Day: 1.5 hours per day Patient and/or Family Agrees t: Yes Safety Risks/Education Patient Education: Gait Training, Transfer Techniques, Correct Positioning, Safety Issues Teaching Recipient: Patient Teaching Methods: Demonstration, Discussion Response to Teaching: Reinforcement Needed Time/GCodes Time In: 0900 Time Out: 1000 Total Billed Treatment Time: 60 Total Billed Treatment 1 visit FA 60' co-treated with OT from [id number] WALLACE ROD PT Apr 26, 2021 09:59
--- NOTE | 2021-04-26 10:06 | Occupational Ther Daily Note ---
OT Current Status-Daily Note Subjective Pt seated on SC with PT, agreeable to [place], followed by OT Tx. Mental Status/Objective Patient Orientation: Person, Place, Time, Situation Attachments: Oxygen ADL-Treatment Therapy Code Descriptions/Definitions Functional [place] Measure: 0=Not Assessed/NA 4=Minimal Assistance 1=Total Assistance 5=Supervision or Setup 2=Maximal Assistance 6=Modified [place] 3=Moderate Assistance 7=Complete IndependenceSCALE: Activities may be completed with or without assistive devices. 0-Nfzffakcvx-csrnkom completes the activity by him/herself with no assistance from a helper. 5-Set-up or Clean-up Assistance-helper sets up or cleans up; patient completes activity. [place] assists only prior to or following the activity. 4-Supervision or Touching Assistance-helper provides verbal cues and/or touching/steadying and/or contact guard assistance as patient completes activity. Assistance may be provided throughout the activity or intermittently. 3-Partial/Moderate Assistance-helper does LESS THAN HALF the effort. [place] lifts, holds or supports trunk or limbs, but provides less than half the effort. 2-Substantial/Maximal Assistance-helper does MORE THAN HALF the effort. [place] lifts or holds trunk or limbs and provides more than half the effort. 9-Zmyaeuwvi-wihily does ALL the effort. Patient does none of the effort to complete the activity. Or, the assistance of 2 or more helpers is required for the patient to complete the activity. If activity was not attempted, code reason: 7-Patient Refused. 9-Not Applicable-not attempted and the patient did not perform the activity before the current illness, exacerbation or injury. 10-Not Attempted due to Environmental Limitations-(lack of equipment, weather restraints, etc.). 88-Not Attempted due to Medical Conditions or Safety Concerns. Shower/Bathe Self (QC): 4 (SBA seated on SC. OT educated pt on adaptive techniques to dry LEs.) Upper Body Dressing (QC): 5 (set up with press puller shirt. Increased time due to limited shoulder movement.) Other Treatment [id number]: OT/PT [place] due to skill of 2 clinicians required which a music rehabilitation therapist could not perform in order to coordinate UE/LEs, decrease fall risk, address safety concerns and due to pt's limitations in transfers/mobility, strength and activity tolerance. OT focused on UE placement, cues for sequencing and safety, and assist with transfers/mobility. Pt doffed clothes, OT covered pt's abdominal bandages, then pt completed shower. Pt able to wash buttocks leaning side to side. Pt donned overhead nightgown. OT assisted with footwear and LE clothing due to time constraints, thus no QC score given. Pt taken to therapy gym, ambulated 2x20' using FWW. Mod A sit to stand transfers during session depending on height of surface. [id number]: OT tx with focus on increasing BUE strength and activity tolerance, and increasing fine motor strength and coordination. Pt removed beads from moderate resistance theraputty, located all beads without cues. Pt then placed 1" pegs into foam pegboard, alternating hands. Pt placed x100 pegs into pegboard, then taken back to her room via w/c. Pt transferred from w/c to recliner, mod A sit to stand. Post tx, pt in recliner, call light in reach and all needs met. Education OT Patient Education: Correct positioning, Energy conservation, Exercise program, Modified ADL techniques, Progress toward Goal/Update tx plan, Purpose of tx/functional activities, Safety issues, Transfer techniques Teaching Recipient: Patient Teaching Methods: Discussion Response to Teaching: Verbalize Understanding OT Short Term Goals Short Term Goals Time Frame: May 05, 2021 Toileting hygiene: 3 Shower/bathe self: 3 Lower body dressin Putting on/taking off footwear: 3 OT Fpc Goals Photocopying Equipment Mechanic Goals Time Frame: May 14, 2021 Eating (QC): 6 Oral Hygiene (QC): 6 Toileting Hygiene (QC): 6 Shower/Bathe Self (QC): 5 Upper Body Dressing (QC): 5 Lower Body Dressing (QC): 4 On/Off Footwear (QC): 4 Additional Goals: 1-Demonstrate ADL Tasks, 2-Verbalize Understanding, 3- ImproveStrength/[place] 1=Demonstrate adherence to instructed precautions during ADL tasks. 2=Patient will verbalize/demonstrate understanding of assistive devices/modifications for ADL. 3=Patient will improve strength/tolerance for activity to enable patient to perform ADL's. OT Education/Plan Problem List/Assessment Assessment: Decreased Activ Tolerance, Decreased UE Strength, Impaired Funct Balance, Impaired I ADL's, Impaired Self-Care Skills Discharge Recommendations Plan/Recommendations: Continue POC Treatment Plan/Plan of Care Patient would benefit from OT for education, treatment and training to promote independence in ADL's, mobility, safety and/or upper extremity function for ADL's. Plan of Care: ADL Retraining, Functional Mobility, Group Exercise/Act as Ind, UE Funct Exercise/Act Treatment Duration: May 14, 2021 Frequency: At least 5 of 7 days/Wk (IRF) Estimated Hrs Per Day: 1.5 hours per day Agreement: Yes Rehab Potential: Good Time/GCodes Start Time: 09:15 Stop Time: 10:45 Total Time Billed (hr/min): 90 Billed Treatment Time [place] [id number], OT Tx [id number] 1, ADL 2 (30'), FA 3 (60') VANNESA PATEL OT Apr 26, 2021 10:06
--- NOTE | 2021-04-26 13:24 | Physical Therapy Daily Note ---
PT Daily Note-Current Subjective Patient in recliner pre tx, agrees to PT but states she doesn't want to ambulate. Voices no complaints of pain. Appearance Patient in recliner post tx with nurse call, phone, tray, all needs met. Mental Status Patient Orientation: Person, Place, Situation Attachments: Oxygen Transfers SCALE: Activities may be completed with or without assistive devices. 3-Iqrlthqbqd-xmxlqel completes the activity by him/herself with no assistance from a helper. 5-Set-up or Clean-up Assistance-helper sets up or cleans up; patient completes activity. [place] assists only prior to or following the activity. 4-Supervision or Touching Assistance-helper provides verbal cues and/or touching/steadying and/or contact guard assistance as patient completes activity. Assistance may be provided throughout the activity or intermittently. 3-Partial/Moderate Assistance-helper does LESS THAN HALF the effort. [place] lifts, holds or supports trunk or limbs, but provides less than half the effort. 2-Substantial/Maximal Assistance-helper does MORE THAN HALF the effort. [place] lifts or holds trunk or limbs and provides more than half the effort. 7-Sgpnualpm-cclpal does ALL the effort. Patient does none of the effort to complete the activity. Or, the assistance of 2 or more helpers is required for the patient to complete the activity. If activity was not attempted, code reason: 7-Patient Refused. 9-Not Applicable-not attempted and the patient did not perform the activity before the current illness, exacerbation or injury. 10-Not Attempted due to Environmental Limitations-(lack of equipment, weather restraints, etc.). 88-Not Attempted due to Medical Conditions or Safety Concerns. Exercises Supine Ex: Ankle pumps, Quad Set, Glut sets, Heel Slides, Straight leg raise, Hip abd/add Supine Reps: 20 (done in recliner with legs elevated) Seated Therapy Exercises: Long arc quads, Hip flexion, Hip abd/add (using ball and RTB) Treatments LE strengthening Assessment Current Status: Fair Progress Patient needed several rest breaks due to fatigue PT Short Term Goals Short Term Goals Time Frame: Apr 27, 2021 Roll Left & Right: 6 Sit to lyin Lying to sitting on side of be: 4 Sit to stand: 3 Chair/uvo-up-uvwoj transfer: 4 Walk 10 feet: 4 Walk 50 feet with two turns: 3 PT Personalized Living Assistant Goals Residential Goals PT Personalized Living Assistant Goals Time Frame: May 11, 2021 Roll Left & Right (QC): 6 Sit to Lying (QC): 4 Lying-Sitting on Side/Bed(QC): 5 Sit to Stand (QC): 4 Chair/Dct-gu-Waktz Xfer(QC): 5 Toilet Transfer (QC): 5 Car Transfer (QC): 4 Does the Patient Walk: Yes Walk 10 feet (QC): 4 Walk 50ft with 2 Turns (QC): 4 Walk 150 ft (QC): 4 Walking 10ft on Uneven Surface: 4 1 Step (curb) (QC): 4 4 Steps (QC): 4 12 Steps (QC): 88 Picking up an Object (QC): 4 Wheel 50 feet with 2 turns (QC: 9 Wheel 150 feet: 9 PT Plan Problem List Problem List: Activity Tolerance, Functional Strength, Safety, Balance, Gait, Transfer, Bed Mobility, ROM Treatment/Plan Treatment Plan: Continue Plan of Care Treatment Plan: Bed Mobility, Education, Functional Activity Karley, Functional Strength, Group Therapy, Gait, Safety, Therapeutic Exercise, Transfers Treatment Duration: May 11, 2021 Frequency: At least 5 of 7 days/Wk (IRF) Estimated Hrs Per Day: 1.5 hours per day Patient and/or Family Agrees t: Yes Safety Risks/Education Patient Education: Correct Positioning, Safety Issues Teaching Recipient: Patient Teaching Methods: Demonstration, Discussion Response to Teaching: Reinforcement Needed Time/GCodes Time In: 1300 Time Out: 1330 Total Billed Treatment Time: 30 Total Billed Treatment 1 visit EX 30' WALLACE ROD PT Apr 26, 2021 13:24
[2021-04-26] MEDS: warFARin 2.5 MG (COUMADIN) TAB PO SCH ×2 (17:29)
[2021-04-26 19:32] VITALS: BP 108/71
[2021-04-27] MEDS: MULTIVIT W/MINERALS TAB (THERAGRAN M) PO SCH (06:00)
[2021-04-27 06:23] LABS: INR 1.8 (0.8-1.4); PROTHROMBIN TIME PATIENT 20.9 SEC (12.2-14.7)
[2021-04-27 07:47] VITALS: BP 130/80
[2021-04-27] MEDS: EUCERIN CREAM 4 OZ JAR (HYDROCERIN) TP SCH ×2 (08:01→21:43)
[2021-04-27] MEDS: PIOGLITAZONE 30MG (ACTOS) TAB PO SCH (08:01)
[2021-04-27] MEDS: ALLOPURINOL 100 MG (ZYLOPRIM) TAB PO SCH (08:01)
[2021-04-27] MEDS: DICLOFENAC 1% GEL 100 GM (VOLTAREN) TUBE TOP SCH ×4 (08:01→21:39)
[2021-04-27] MEDS: meTOproloL SUCCINATE 50 MG (TOPROL XL) TAB PO SCH (08:01)
[2021-04-27] MEDS ORDERED: dilTIAZem120 MG (CARDIZEM CD) CAP PO NR (08:58)
[2021-04-27] MEDS: SENNA W/DOCUSATE (SENOKOT S) TABLET PO SCH ×2 (09:00→22:18)
[2021-04-27] MEDS: DOCUSATE SODIUM 100 MG (COLACE) CAP PO SCH ×2 (09:00→21:38)
[2021-04-27] MEDS: polyethylene glycoL POWDER 17 GM (MIRALAX) PACK PO SCH ×2 (09:00→22:18)
--- NOTE | 2021-04-27 09:22 | PM&R Progress Note ---
Subjective HPI/CC On Admission Date Seen by Provider: Apr 27, 2021 Time Seen by Provider: 09:30 Subjective/Events-last exam 04/27/2021: Patient doing well Bowels moving Walking well Appears to good Dr. Marshall will increase Cardizem 04/26/21: Pt doing well INR 1.8 Hb 9.5 No major issues Checked meds and lab 04/25/2021: Patient had a large bowel movement yesterday Doing very well Stamina is low but working hard Check meds and labs 04/24/21: Patient doing well Guillermo wraps to lower extremities Diclofenac gel will be used INR 1.6 Bowels are moving well 04/23/2021: Pt doing really well Had a large BM last night Diclofenac gel will be ordered Tylenol will be ordered for the pain Has some hemorrhoids 04/22/2021: Pt doing really well Bowels are moving Checked meds and labs Oxygen at 0.5 liters 04/21/2021: Pt doing a lot better Using ttr-qz-nqcbi Walks ten feet with a walker Oxygen at half a liter Feet are really cracked - will place lotion Hgb 9.3 INR 1.5 Heart rate in the 90s since Cardizem was increased Slum score is 29/30 Review of Systems General: Fatigue, Malaise Objective Exam Vital Signs Vital Signs Date Time Temp Pulse Resp B/P (MAP) Pulse Ox O2 Delivery O2 Flow Rate FiO2 04/27/21 09:00 Room Air 04/27/21 07:47 36.4 108 18 130/80 (97) 93 0.50 Capillary Refill : General Appearance: No Apparent Distress, WD/WN, Chronically ill HEENT: PERRL/EOMI, Normal ENT Inspection, Pharynx Normal Neck: Full Range of Motion, Normal Inspection, Non Tender, Supple, Carotid Bruit Respiratory: Chest Non Tender, Lungs Clear, No Accessory Muscle Use, No Respiratory Distress, Decreased Breath Sounds Cardiovascular: No Gallop, No JVD, No Murmur, Normal Peripheral Pulses, Irregularly Irregular, Tachycardia Gastrointestinal: Normal Bowel Sounds, No Organomegaly, No Pulsatile Mass, Soft, Tenderness Back: Normal Inspection, No CVA Tenderness, No Vertebral Tenderness Extremity: Normal Capillary Refill, Normal Inspection, Normal Range of Motion, Non Tender, No Calf Tenderness, Pedal Edema Neurologic/Psychiatric: Alert, Oriented x3, No Motor/Sensory Deficits, Normal Mood/Affect, Abnormal Gait (Unable to ambulate), Motor Weakness (Generalized) Skin: Normal Color, Warm/Dry Lymphatic: No Adenopathy Results/Procedures Lab Patient resulted labs reviewed. FIM Transfers Therapy Code Descriptions/Definitions Functional [place] Measure: 0=Not Assessed/NA 4=Minimal Assistance 1=Total Assistance 5=Supervision or Setup 2=Maximal Assistance 6=Modified [place] 3=Moderate Assistance 7=Complete IndependenceSCALE: Activities may be completed with or without assistive devices. 1-Mfkcutncsx-iqzfcos completes the activity by him/herself with no assistance from a helper. 5-Set-up or Clean-up Assistance-helper sets up or cleans up; patient completes activity. [place] assists only prior to or following the activity. 4-Supervision or Touching Assistance-helper provides verbal cues and/or touching/steadying and/or contact guard assistance as patient completes activity. Assistance may be provided throughout the activity or intermittently. 3-Partial/Moderate Assistance-helper does LESS THAN HALF the effort. [place] lifts, holds or supports trunk or limbs, but provides less than half the effort. 2-Substantial/Maximal Assistance-helper does MORE THAN HALF the effort. [place] lifts or holds trunk or limbs and provides more than half the effort. 5-Eudklkuwx-tdwmgo does ALL the effort. Patient does none of the effort to complete the activity. Or, the assistance of 2 or more helpers is required for the patient to complete the activity. If activity was not attempted, code reason: 7-Patient Refused. 9-Not Applicable-not attempted and the patient did not perform the activity before the current illness, exacerbation or injury. 10-Not Attempted due to Environmental Limitations-(lack of equipment, weather restraints, etc.). 88-Not Attempted due to Medical Conditions or Safety Concerns. Roll Left to Right (QC): 5 Sit to Lying (QC): 4 Sit to Stand (QC): 3 Chair/Mrt-dc-Anedo Xfer(QC): 4 Car Transfer (QC): 88 Gait Training Does the Patient Walk?: Yes Distance: 20'x2 Walk 10 feet (QC): 4 Walk 50 ft with 2 Turns(QC): 88 Walk 150 ft (QC): 88 Walking 10ft/uneven surface-QC: 88 Gait Persons Needed: 1 Gait Assistive Device: FWW Wheelchair Training Does the Pt Use a Wheelchair?: Yes Distance: 100' Wheel 50 ft with 2 turns (QC): 4 Wheel 150 ft (QC): 88 Type of Wheelchair: Manual Stair Training 1 Step (curb) (QC): 88 4 Steps (QC): 88 12 Steps (QC): 88 Balance Picking up an Object (QC): 88 ADL-Treatment Eating (QC): 5 (Set up assist per pt report.) Oral Hygiene (QC): 7 Shower/Bathe Self (QC): 4 (SBA seated on SC. OT educated pt on adaptive techniques to dry LEs.) Upper Body Dressing (QC): 5 (set up with gizzard puller shirt. Increased time due to limited shoulder movement.) Lower Body Dressing (QC): 2 (Pt able to thread brief over toes on RLE, assist to thread past heel. Assist to thread LLE and assist with pant hike. Max A sit to stand for pant hike.) On/Off Footwear (QC): 2 (Max A donning gripper socks and shoes using sock aide, drill press set up operator and LH shoe horn.) Toileting Hygiene (QC): 2 (Assist to manage pants down/up, pt able to wash periarea and assist with some clothing management. Assistance with washing buttocks.) Assessment/Plan Assessment and Plan Assess & Plan/Chief Complaint Assessment: Critical illness myopathy Chronic atrial fibrillation not rate controlled consulting Dr. Marshall Urinary retention now resolved ADAIR drain in place consulting Dr. Gamez Subtherapeutic INR 1.5 Coumadin anticoagulation Plan: Supportive care Rehab protocol Consult Dr. Gamez Consult Dr. Marshall 04/21/2021: Supportive care Appreciate cardiology Appreciate general surgery 04/22/2021: Wean oxygen Supportive care 04/23/2021: Supportive care Wean oxygen 04/24/2021: Diclofenac gel Monitor INR Wrap legs 04/25/2021: Supportive care Wrap legs 04/26/21: Monitor INR Supportive care 04/27/2021: Supportive care Increase meds for rate control of A. fib (1) Gastric ulcer with perforation (2) Atrial fibrillation (3) Warfarin anticoagulation (4) Urinary retention (5) Diabetes (6) Myopathy JARON BRANNON DO Apr 27, 2021 09:22
--- NOTE | 2021-04-27 09:39 | Cardiology Progress Note ---
Subjective Date Seen by Provider: Apr 27, 2021 Time Seen by Provider: 08:05 Subjective/Events-last exam Patient sitting up in chair, denies chest pain or dyspnea. Still slightly ta chycardic Review of Systems General: No Chills, No Night Sweats, No Fatigue, No Malaise, No Appetite, No Other HEENT: No Head Aches, No Visual Changes, No Eye Pain, No Ear Pain, No Dysphasia, No Sinus Congestion, No Post Nasal Drip, No Sore Throat, No Other Pulmonary: No Dyspnea, No Cough, No Pleuritic Chest Pain, No Other Cardiovascular: No: Chest Pain, Palpitations, Orthopnea, Paroxysmal Noc. Dyspnea, Edema, Lt Headedness, Other Objective-Cardiology Exam Last Set of Vital Signs Vital Signs 04/27/21 04/27/21 07:47 09:00 Temp 36.4 Pulse 108 Resp 18 B/P (MAP) 130/80 (97) Pulse Ox 93 O2 Delivery Room Air O2 Flow Rate 0.50 I&O Intake and Output 04/27/21 00:00 Intake Total 1400 ml Balance 1400 ml Intake Oral 1400 ml # Voids 7 # Bowel Movements 2 General: Alert, Oriented X3, Cooperative HEENT: Atraumatic, PERRLA Neck: Supple, No JVD, No Thyromegaly Lungs: Clear to Auscultation, Normal Air Movement Heart: Normal S1, Normal S2, Other (irregularly irregular, slightly tachycardic) Abdomen: Normal Bowel Sounds, Soft Skin: No Rashes, No Significant Lesion Neuro: Normal Speech Psych/Mental Status: Mental Status NL, Mood NL A/P-Cardiology Admission Diagnosis Persistent atrial fibrillation Tachycardia Perforated ulcer Pleural effusion Assessment/Plan Persistent atrial fibrillation, on rate control medication, maintained on Cardizem CD to 240mg daily, Toprol XL 50mg daily, still slightly tachycardic, I will increase Cardizem to 360mg daily. Monitor blood pressure. Maintained on coumadin, continue to monitor PT/INR Echocardiogram showed normal LV size, EF 55%, left atrial dilation, moderate to severe tricuspid regurgitation, moderate mitral regurgitation, pulmonary hypertension with PA pressure 50 mmHg Perforated ulcer, status post repair, had complication post surgery with continuous leak. Currently better. Continue to monitor Left-sided pleural effusion noted incidentally on her echo. CXR showing moderate bilat pleural effusion. Hypertension, continue current medication and monitor blood pressure Generalized weakness, receiving physical therapy. Supervisory-Addendum Brief Supervisory Addendum Participated in pt care: history, MDM, physical Personally performed: exam, history, MDM Care discussed with: NICK Results interpretation: Verified all documentation Notes: Patient was seen and evaluated with Naya, examination performed, management plan was discussed, agree with the current scribed note, I made few changes to the note using Italic font Patient was seen at bedside, sitting comfortably Complaining of mild fatigue today Noted to be more tachycardic I will increase Cardizem CD to 360 mg and monitor her tolerance and response Monitor blood pressure NAYA GALLEGOS Apr 27, 2021 09:39 TC TUCKER MD Apr 27, 2021 12:01
--- NOTE | 2021-04-27 10:02 | Physical Therapy Daily Note ---
PT Daily Note-Current Subjective Patient in recliner pre tx, agrees to PT, has no complaints of pain but states she feels very ill and cannot do much but will participate. Will be co-treating with OT due to poor patient mobility, strength, endurance, severe debility, coordinate UE and LE during activity, safety and reduce risk of falls. Appearance Patient in therapy gym post tx, will continue for a bit with OT Mental Status Patient Orientation: Normal For Age Attachments: Oxygen Transfers SCALE: Activities may be completed with or without assistive devices. 7-Sruyouglqs-uxepjin completes the activity by him/herself with no assistance from a helper. 5-Set-up or Clean-up Assistance-helper sets up or cleans up; patient completes activity. [place] assists only prior to or following the activity. 4-Supervision or Touching Assistance-helper provides verbal cues and/or touching/steadying and/or contact guard assistance as patient completes activity. Assistance may be provided throughout the activity or intermittently. 3-Partial/Moderate Assistance-helper does LESS THAN HALF the effort. [place] lifts, holds or supports trunk or limbs, but provides less than half the effort. 2-Substantial/Maximal Assistance-helper does MORE THAN HALF the effort. [place] lifts or holds trunk or limbs and provides more than half the effort. 6-Jxcaitedj-cjoxrq does ALL the effort. Patient does none of the effort to complete the activity. Or, the assistance of 2 or more helpers is required for the patient to complete the activity. If activity was not attempted, code reason: 7-Patient Refused. 9-Not Applicable-not attempted and the patient did not perform the activity before the current illness, exacerbation or injury. 10-Not Attempted due to Environmental Limitations-(lack of equipment, weather restraints, etc.). 88-Not Attempted due to Medical Conditions or Safety Concerns. Sit to Stand (QC): 3 Chair/Khm-hm-Djcrf Xfer(QC): 4 Wheelchair Training Does the Pt Use a Wheelchair?: Yes Wheel 50 ft with 2 turns (QC): 4 Wheel 150 ft (QC): 4 Type of Wheelchair: Manual 600', patient needed many rest breaks due to fatigue and just feeling bad from being ill. Patient complains of leg stiffness and a burning sensation. Patient's lower legs are swollen and red but susie sign is negative. Doctor Devorah comes in during tx and sees her legs. Exercises LAQ alternating for 5 min Treatments transfers, WC mobility, LE strengthening Assessment Current Status: Poor Progress Patient is ill today but she did what she could. PT Short Term Goals Short Term Goals Time Frame: Apr 27, 2021 Roll Left & Right: 6 Sit to lyin Lying to sitting on side of be: 4 Sit to stand: 3 Chair/zaz-ke-karwd transfer: 4 Walk 10 feet: 4 Walk 50 feet with two turns: 3 PT Custodial Goals [place] Goals PT Custodial Goals Time Frame: May 11, 2021 Roll Left & Right (QC): 6 Sit to Lying (QC): 4 Lying-Sitting on Side/Bed(QC): 5 Sit to Stand (QC): 4 Chair/Eiv-tq-Hcskd Xfer(QC): 5 Toilet Transfer (QC): 5 Car Transfer (QC): 4 Does the Patient Walk: Yes Walk 10 feet (QC): 4 Walk 50ft with 2 Turns (QC): 4 Walk 150 ft (QC): 4 Walking 10ft on Uneven Surface: 4 1 Step (curb) (QC): 4 4 Steps (QC): 4 12 Steps (QC): 88 Picking up an Object (QC): 4 Wheel 50 feet with 2 turns (QC: 9 Wheel 150 feet: 9 PT Plan Problem List Problem List: Activity Tolerance, Functional Strength, Safety, Balance, Gait, Transfer, Bed Mobility, ROM Treatment/Plan Treatment Plan: Continue Plan of Care Treatment Plan: Bed Mobility, Education, Functional Activity Karley, Functional Strength, Group Therapy, Gait, Safety, Therapeutic Exercise, Transfers Treatment Duration: May 11, 2021 Frequency: At least 5 of 7 days/Wk (IRF) Estimated Hrs Per Day: 1.5 hours per day Patient and/or Family Agrees t: Yes Safety Risks/Education Patient Education: Transfer Techniques, Correct Positioning, W/C Management, Safety Issues Teaching Recipient: Patient Teaching Methods: Demonstration, Discussion Response to Teaching: Reinforcement Needed Time/GCodes Time In: 0900 Time Out: 1000 Total Billed Treatment Time: 60 Total Billed Treatment 1 visit FA 60' co-treated from [id number] WALLACE ROD PT Apr 27, 2021 10:02
--- NOTE | 2021-04-27 10:08 | Occupational Ther Daily Note ---
OT Current Status-Daily Note Subjective Pt in gym with PT, agreeable to OT Tx. Pt states she doesn't feel the best today, her stomach is a little "queezy" Mental Status/Objective Patient Orientation: Person, Place, Situation Attachments: Oxygen ADL-Treatment Therapy Code Descriptions/Definitions Functional [place] Measure: 0=Not Assessed/NA 4=Minimal Assistance 1=Total Assistance 5=Supervision or Setup 2=Maximal Assistance 6=Modified [place] 3=Moderate Assistance 7=Complete IndependenceSCALE: Activities may be completed with or without assistive devices. 2-Krsttbxczq-hzeqtdu completes the activity by him/herself with no assistance from a helper. 5-Set-up or Clean-up Assistance-helper sets up or cleans up; patient completes activity. [place] assists only prior to or following the activity. 4-Supervision or Touching Assistance-helper provides verbal cues and/or touching/steadying and/or contact guard assistance as patient completes activity. Assistance may be provided throughout the activity or intermittently. 3-Partial/Moderate Assistance-helper does LESS THAN HALF the effort. [place] lifts, holds or supports trunk or limbs, but provides less than half the effort. 2-Substantial/Maximal Assistance-helper does MORE THAN HALF the effort. [place] lifts or holds trunk or limbs and provides more than half the effort. 2-Bcegpdudq-cmusdm does ALL the effort. Patient does none of the effort to complete the activity. Or, the assistance of 2 or more helpers is required for the patient to complete the activity. If activity was not attempted, code reason: 7-Patient Refused. 9-Not Applicable-not attempted and the patient did not perform the activity before the current illness, exacerbation or injury. 10-Not Attempted due to Environmental Limitations-(lack of equipment, weather restraints, etc.). 88-Not Attempted due to Medical Conditions or Safety Concerns. Other Treatment [id number]: OT/PT cotreat due to skill of 2 clinicians required which a rehab aid could not perform in order to coordinate UE/LEs, decrease fall risk, address safety concerns and due to pt's limitations in transfers/mobility, strength and activity tolerance. OT focused on UE placement, cues for sequencing and safety, and assist with transfers/mobility. Pt propelled w/c around [facility] common area and 2nd floor, taking rest breaks as needed. This was complete in order to increase BUE strength and activity tolerance. Pt able to propel 600' total, needing many rest breaks due to fatigue and feeling bad. [id number] OT tx with focus on increasing BUE strength and activity tolerance, as well as increasing BUE fine motor strength and coordination: Pt removed beads from moderate resistance theraputty, verbal cue to locate last bead. Pt then placed 1" pegs into foam pegboard, alternating hands. She then completed graded clothespins (1-5 lbs), placing/removing first with R hand, then with L. Pt taken back to room, transferring from w/c to recliner, max A sit to stand. Post tx, pt in recliner, call light in reach and all needs met. Education OT Patient Education: Correct positioning, Energy conservation, Exercise program, Modified ADL techniques, Progress toward Goal/Update tx plan, Purpose of tx/functional activities, Rehab process Teaching Recipient: Patient Teaching Methods: Discussion Response to Teaching: Verbalize Understanding OT Short Term Goals Short Term Goals Time Frame: May 05, 2021 Toileting hygiene: 3 Shower/bathe self: 3 Lower body dressin Putting on/taking off footwear: 3 OT Correction Goals Correction Goals Time Frame: May 14, 2021 Eating (QC): 6 Oral Hygiene (QC): 6 Toileting Hygiene (QC): 6 Shower/Bathe Self (QC): 5 Upper Body Dressing (QC): 5 Lower Body Dressing (QC): 4 On/Off Footwear (QC): 4 Additional Goals: 1-Demonstrate ADL Tasks, 2-Verbalize Understanding, 3- ImproveStrength/Kar[place] 1=Demonstrate adherence to instructed precautions during ADL tasks. 2=Patient will verbalize/demonstrate understanding of assistive devices/modifications for ADL. 3=Patient will improve strength/tolerance for activity to enable patient to perform ADL's. OT Education/Plan Problem List/Assessment Assessment: Decreased Activ Tolerance, Decreased UE Strength, Impaired Funct Balance, Impaired I ADL's, Impaired Self-Care Skills Discharge Recommendations Plan/Recommendations: Continue POC Treatment Plan/Plan of Care Patient would benefit from OT for education, treatment and training to promote independence in ADL's, mobility, safety and/or upper extremity function for ADL's. Plan of Care: ADL Retraining, Functional Mobility, Group Exercise/Act as Ind, UE Funct Exercise/Act Treatment Duration: May 14, 2021 Frequency: At least 5 of 7 days/Wk (IRF) Estimated Hrs Per Day: 1.5 hours per day Agreement: Yes Rehab Potential: Good Time/GCodes Start Time: 09:15 Stop Time: 10:45 Total Time Billed (hr/min): 90 Billed Treatment Time [place] [id number], OT tx [id number] 1, FA 6 VANNESA PATEL OT Apr 27, 2021 10:08
--- NOTE | 2021-04-27 13:51 | Physical Therapy Daily Note ---
PT Daily Note-Current Subjective Patient in recliner pre tx, agrees to PT, voices no complaints of pain. Appearance Patient in recliner post tx with nurse call, phone, tray, all needs met. Mental Status Patient Orientation: Person, Place, Situation Attachments: Oxygen Transfers SCALE: Activities may be completed with or without assistive devices. 4-Cygchyqycf-zzjyubb completes the activity by him/herself with no assistance from a helper. 5-Set-up or Clean-up Assistance-helper sets up or cleans up; patient completes activity. [place] assists only prior to or following the activity. 4-Supervision or Touching Assistance-helper provides verbal cues and/or touching/steadying and/or contact guard assistance as patient completes activity. Assistance may be provided throughout the activity or intermittently. 3-Partial/Moderate Assistance-helper does LESS THAN HALF the effort. [place] lifts, holds or supports trunk or limbs, but provides less than half the effort. 2-Substantial/Maximal Assistance-helper does MORE THAN HALF the effort. [place] lifts or holds trunk or limbs and provides more than half the effort. 4-Aroynrmqq-lmjelh does ALL the effort. Patient does none of the effort to complete the activity. Or, the assistance of 2 or more helpers is required for the patient to complete the activity. If activity was not attempted, code reason: 7-Patient Refused. 9-Not Applicable-not attempted and the patient did not perform the activity before the current illness, exacerbation or injury. 10-Not Attempted due to Environmental Limitations-(lack of equipment, weather restraints, etc.). 88-Not Attempted due to Medical Conditions or Safety Concerns. Exercises Supine Ex: Ankle pumps, Quad Set, Glut sets, Heel Slides, Short Arc Quads, Straight leg raise, Hip abd/add Supine Reps: 20 (done in recliner with legs elevated) Seated Therapy Exercises: Long arc quads, Hip flexion, Hip abd/add (with ball and RTB) Treatments LE strengthening Assessment Current Status: Fair Progress patient needs several rest breaks due to fatigue PT Short Term Goals Short Term Goals Time Frame: Apr 27, 2021 Roll Left & Right: 6 Sit to lyin Lying to sitting on side of be: 4 Sit to stand: 3 Chair/nbh-tp-julfs transfer: 4 Walk 10 feet: 4 Walk 50 feet with two turns: 3 PT Supervisor [place] Goals Supervisor [place] Goals PT Supervisor [place] Goals Time Frame: May 11, 2021 Roll Left & Right (QC): 6 Sit to Lying (QC): 4 Lying-Sitting on Side/Bed(QC): 5 Sit to Stand (QC): 4 Chair/Wxy-qw-Yichy Xfer(QC): 5 Toilet Transfer (QC): 5 Car Transfer (QC): 4 Does the Patient Walk: Yes Walk 10 feet (QC): 4 Walk 50ft with 2 Turns (QC): 4 Walk 150 ft (QC): 4 Walking 10ft on Uneven Surface: 4 1 Step (curb) (QC): 4 4 Steps (QC): 4 12 Steps (QC): 88 Picking up an Object (QC): 4 Wheel 50 feet with 2 turns (QC: 9 Wheel 150 feet: 9 PT Plan Problem List Problem List: Activity Tolerance, Functional Strength, Safety, Balance, Gait, Transfer, Bed Mobility, ROM Treatment/Plan Treatment Plan: Continue Plan of Care Treatment Plan: Bed Mobility, Education, Functional Activity Karley, Functional Strength, Group Therapy, Gait, Safety, Therapeutic Exercise, Transfers Treatment Duration: May 11, 2021 Frequency: At least 5 of 7 days/Wk (IRF) Estimated Hrs Per Day: 1.5 hours per day Patient and/or Family Agrees t: Yes Safety Risks/Education Patient Education: Correct Positioning, Safety Issues Teaching Recipient: Patient Teaching Methods: Demonstration, Discussion Response to Teaching: Reinforcement Needed Time/GCodes Time In: 1330 Time Out: 1400 Total Billed Treatment Time: 30 Total Billed Treatment 1 visit EX 30' WALLACE ROD PT Apr 27, 2021 13:51
[2021-04-27] MEDS: warFARin 2.5 MG (COUMADIN) TAB PO SCH (18:01)
[2021-04-27 20:00] VITALS: BP 152/67
--- NOTE | 2021-04-28 05:47 | PM&R Progress Note ---
Subjective HPI/CC On Admission Date Seen by Provider: Apr 28, 2021 Time Seen by Provider: 09:00 Subjective/Events-last exam 04/28/21: Pt doing pretty well Wounds look good Heladio has addressed the wound with wound care dressings Bowels are moving INR still sub-therapeutic Insisting on going home but may be better off in [facility] assisted living but we will do family education soon 04/27/2021: Patient doing well Bowels moving Walking well Appears to good Dr. Marshall will increase Cardizem 04/26/21: Pt doing well INR 1.8 Hb 9.5 No major issues Checked meds and lab 04/25/2021: Patient had a large bowel movement yesterday Doing very well Stamina is low but working hard Check meds and labs 04/24/21: Patient doing well Guillermo wraps to lower extremities Diclofenac gel will be used INR 1.6 Bowels are moving well 04/23/2021: Pt doing really well Had a large BM last night Diclofenac gel will be ordered Tylenol will be ordered for the pain Has some hemorrhoids 04/22/2021: Pt doing really well Bowels are moving Checked meds and labs Oxygen at 0.5 liters 04/21/2021: Pt doing a lot better Using kso-dj-ucfjx Walks ten feet with a walker Oxygen at half a liter Feet are really cracked - will place lotion Hgb 9.3 INR 1.5 Heart rate in the 90s since Cardizem was increased Slum score is 29/30 Review of Systems General: Fatigue, Malaise Objective Exam Vital Signs Vital Signs Date Time Temp Pulse Resp B/P (MAP) Pulse Ox O2 Delivery O2 Flow Rate FiO2 04/28/21 20:04 35.9 80 18 100/57 (71) 95 Nasal Cannula 0.50 Capillary Refill : General Appearance: No Apparent Distress, WD/WN, Chronically ill HEENT: PERRL/EOMI, Normal ENT Inspection, Pharynx Normal Neck: Full Range of Motion, Normal Inspection, Non Tender, Supple, Carotid Bruit Respiratory: Chest Non Tender, Lungs Clear, No Accessory Muscle Use, No Respiratory Distress, Decreased Breath Sounds Cardiovascular: No Gallop, No JVD, No Murmur, Normal Peripheral Pulses, Irregularly Irregular, Tachycardia Gastrointestinal: Normal Bowel Sounds, No Organomegaly, No Pulsatile Mass, Soft, Tenderness Back: Normal Inspection, No CVA Tenderness, No Vertebral Tenderness Extremity: Normal Capillary Refill, Normal Inspection, Normal Range of Motion, Non Tender, No Calf Tenderness, Pedal Edema Neurologic/Psychiatric: Alert, Oriented x3, No Motor/Sensory Deficits, Normal Mood/Affect, Abnormal Gait (Unable to ambulate), Motor Weakness (Generalized) Skin: Normal Color, Warm/Dry Lymphatic: No Adenopathy Results/Procedures Lab Patient resulted labs reviewed. FIM Transfers Therapy Code Descriptions/Definitions Functional [place] Measure: 0=Not Assessed/NA 4=Minimal Assistance 1=Total Assistance 5=Supervision or Setup 2=Maximal Assistance 6=Modified [place] 3=Moderate Assistance 7=Complete IndependenceSCALE: Activities may be completed with or without assistive devices. 6-Frfyfqiqik-hziuysg completes the activity by him/herself with no assistance from a helper. 5-Set-up or Clean-up Assistance-helper sets up or cleans up; patient completes activity. [place] assists only prior to or following the activity. 4-Supervision or Touching Assistance-helper provides verbal cues and/or touching/steadying and/or contact guard assistance as patient completes activity . Assistance may be provided throughout the activity or intermittently. 3-Partial/Moderate Assistance-helper does LESS THAN HALF the effort. [place] lifts, holds or supports trunk or limbs, but provides less than half the effort. 2-Substantial/Maximal Assistance-helper does MORE THAN HALF the effort. [place] lifts or holds trunk or limbs and provides more than half the effort. 7-Renitcmyu-jhtlsz does ALL the effort. Patient does none of the effort to complete the activity. Or, the assistance of 2 or more helpers is required for the patient to complete the activity. If activity was not attempted, code reason: 7-Patient Refused. 9-Not Applicable-not attempted and the patient did not perform the activity before the current illness, exacerbation or injury. 10-Not Attempted due to Environmental Limitations-(lack of equipment, weather restraints, etc.). 88-Not Attempted due to Medical Conditions or Safety Concerns. Roll Left to Right (QC): 5 Sit to Lying (QC): 4 Sit to Stand (QC): 3 Chair/Kbe-bu-Moxox Xfer(QC): 4 Car Transfer (QC): 88 Gait Training Does the Patient Walk?: Yes Distance: 20'x2 Walk 10 feet (QC): 4 Walk 50 ft with 2 Turns(QC): 88 Walk 150 ft (QC): 88 Walking 10ft/uneven surface-QC: 88 Gait Persons Needed: 1 Gait Assistive Device: FWW Wheelchair Training Does the Pt Use a Wheelchair?: Yes Distance: 100' Wheel 50 ft with 2 turns (QC): 4 Wheel 150 ft (QC): 4 Type of Wheelchair: Manual Stair Training 1 Step (curb) (QC): 88 4 Steps (QC): 88 12 Steps (QC): 88 Balance Picking up an Object (QC): 88 ADL-Treatment Eating (QC): 5 (Set up assist per pt report.) Oral Hygiene (QC): 7 Shower/Bathe Self (QC): 4 (SBA seated on SC. OT educated pt on adaptive techni ques to dry LEs.) Upper Body Dressing (QC): 5 (set up with hook puller shirt. Increased time due to limited shoulder movement.) Lower Body Dressing (QC): 2 (Pt able to thread brief over toes on RLE, assist to thread past heel. Assist to thread LLE and assist with pant hike. Max A sit to stand for pant hike.) On/Off Footwear (QC): 2 (Max A donning gripper socks and shoes using sock aide, area intelligence technician and LH shoe horn.) Toileting Hygiene (QC): 2 (Assist to manage pants down/up, pt able to wash periarea and assist with some clothing management. Assistance with washing buttocks.) Assessment/Plan Assessment and Plan Assess & Plan/Chief Complaint Assessment: Critical illness myopathy Chronic atrial fibrillation not rate controlled consulting Dr. Marshall Urinary retention now resolved ADAIR drain in place consulting Dr. Gamez Subtherapeutic INR 1.5 Coumadin anticoagulation Plan: Supportive care Rehab protocol Consult Dr. Gamez Consult Dr. Marshall 04/21/2021: Supportive care Appreciate cardiology Appreciate general surgery 04/22/2021: Wean oxygen Supportive care 04/23/2021: Supportive care Wean oxygen 04/24/2021: Diclofenac gel Monitor INR Wrap legs 04/25/2021: Supportive care Wrap legs 04/26/21: Monitor INR Supportive care 04/27/2021: Supportive care Increase meds for rate control of A. fib 04/28/21: Monitor closely DC next week (1) Gastric ulcer with perforation (2) Atrial fibrillation (3) Warfarin anticoagulation (4) Urinary retention (5) Diabetes (6) Myopathy JARON BRANNON DO Apr 28, 2021 05:47
[2021-04-28 06:12] LABS: INR 1.7 (0.8-1.4); PROTHROMBIN TIME PATIENT 20.6 SEC (12.2-14.7)
[2021-04-28] MEDS: MULTIVIT W/MINERALS TAB (THERAGRAN M) PO SCH ×2 (07:00→07:58)
[2021-04-28 07:55] VITALS: BP 116/79
[2021-04-28] MEDS: ALLOPURINOL 100 MG (ZYLOPRIM) TAB PO SCH (07:58)
[2021-04-28] MEDS: DICLOFENAC 1% GEL 100 GM (VOLTAREN) TUBE TOP SCH ×4 (07:58→20:35)
[2021-04-28] MEDS: DOCUSATE SODIUM 100 MG (COLACE) CAP PO SCH ×2 (07:58→20:08)
[2021-04-28] MEDS: EUCERIN CREAM 4 OZ JAR (HYDROCERIN) TP SCH ×2 (07:58→20:38)
[2021-04-28] MEDS: PIOGLITAZONE 30MG (ACTOS) TAB PO SCH (07:58)
[2021-04-28] MEDS: meTOproloL SUCCINATE 50 MG (TOPROL XL) TAB PO SCH (07:58)
[2021-04-28] MEDS: SENNA W/DOCUSATE (SENOKOT S) TABLET PO SCH ×2 (08:37→19:22)
[2021-04-28] MEDS: polyethylene glycoL POWDER 17 GM (MIRALAX) PACK PO SCH ×2 (08:37→19:22)
--- NOTE | 2021-04-28 08:59 | Cardiology Progress Note ---
Subjective Date Seen by Provider: Apr 28, 2021 Time Seen by Provider: 08:00 Subjective/Events-last exam Patient is sitting up in chair, no new complaints. Review of Systems General: No Chills, No Night Sweats; Fatigue, Malaise; No Appetite, No Other HEENT: No Head Aches, No Visual Changes, No Eye Pain, No Ear Pain, No Dysphasia, No Sinus Congestion, No Post Nasal Drip, No Sore Throat, No Other Pulmonary: No Dyspnea, No Cough, No Pleuritic Chest Pain, No Other Cardiovascular: No: Chest Pain, Palpitations, Orthopnea, Paroxysmal Noc. Dyspnea, Edema, Lt Headedness, Other Objective-Cardiology Exam Last Set of Vital Signs Vital Signs 04/28/21 04/28/21 07:55 10:28 Temp 36.5 Pulse 102 Resp 18 B/P (MAP) 116/79 (91) Pulse Ox 94 O2 Delivery Nasal Cannula O2 Flow Rate 0.50 I&O Intake and Output 04/28/21 00:00 Intake Total 1450 ml Balance 1450 ml Intake Oral 1450 ml # Voids 5 # Bowel Movements 1 General: Alert, Oriented X3, Cooperative HEENT: Atraumatic, PERRLA Neck: Supple, No JVD, No Thyromegaly Lungs: Clear to Auscultation, Normal Air Movement Heart: Normal S1, Normal S2, Other (irregularly irregular) Abdomen: Normal Bowel Sounds, Soft Skin: No Rashes, No Significant Lesion Neuro: Normal Speech Psych/Mental Status: Mental Status NL, Mood NL A/P-Cardiology Admission Diagnosis Persistent atrial fibrillation Tachycardia Perforated ulcer Pleural effusion Assessment/Plan Persistent atrial fibrillation, on rate control medication, Cardizem increased to 360mg in addition to her Toprol XL. Monitor blood pressure. Maintained on coumadin, I have changed Coumadin to 4 mg daily Echocardiogram showed normal LV size, EF 55%, left atrial dilation, moderate to severe tricuspid regurgitation, moderate mitral regurgitation, pulmonary hypertension with PA pressure 50 mmHg Perforated ulcer, status post repair, had complication post surgery with continuous leak. Currently better. Continue to monitor Left-sided pleural effusion noted incidentally on her echo. CXR showing moderate bilat pleural effusion. Hypertension, continue current medication and monitor blood pressure Generalized weakness, receiving physical therapy. Supervisory-Addendum Brief Supervisory Addendum Participated in pt care: history, MDM, physical Personally performed: exam, history, MDM Care discussed with: NICK Results interpretation: Verified all documentation Notes: Patient was seen and evaluated with Naya, examination performed, management plan was discussed, agree with the current scribed note, I made few changes to the note using Italic font Patient was seen at bedside, feeling better, no new complaint Tolerating Cardizem 360 mg daily without difficulty, monitor blood pressure INR is subtherapeutic, increasing Coumadin to 4 mg daily, monitor INR Monitor EKG NAYA GALLEGOS Apr 28, 2021 08:59 TC TUCKER MD Apr 28, 2021 16:07
--- NOTE | 2021-04-28 10:03 | Occupational Ther Daily Note ---
OT Current Status-Daily Note Subjective Pt seated in recliner, agreeable to OT Tx. Pt states she wishes to talk to the social insurance specialist, as she doesn't feel ready to go home and she doesn't want to go to [place]. Nurse notified. Mental Status/Objective Patient Orientation: Person, Place, Time, Situation Attachments: Oxygen (.5L) ADL-Treatment Therapy Code Descriptions/Definitions Functional [place] Measure: 0=Not Assessed/NA 4=Minimal Assistance 1=Total Assistance 5=Supervision or Setup 2=Maximal Assistance 6=Modified [place] 3=Moderate Assistance 7=Complete IndependenceSCALE: Activities may be completed with or without assistive devices. 5-Euwovuehms-xcygsur completes the activity by him/herself with no assistance from a helper. 5-Set-up or Clean-up Assistance-helper sets up or cleans up; patient completes activity. [place] assists only prior to or following the activity. 4-Supervision or Touching Assistance-helper provides verbal cues and/or touching/steadying and/or contact guard assistance as patient completes activity. Assistance may be provided throughout the activity or intermittently. 3-Partial/Moderate Assistance-helper does LESS THAN HALF the effort. [place] lifts, holds or supports trunk or limbs, but provides less than half the effort. 2-Substantial/Maximal Assistance-helper does MORE THAN HALF the effort. [place] lifts or holds trunk or limbs and provides more than half the effort. 8-Hbzzosulu-zxcndi does ALL the effort. Patient does none of the effort to complete the activity. Or, the assistance of 2 or more helpers is required for the patient to complete the activity. If activity was not attempted, code reason: 7-Patient Refused. 9-Not Applicable-not attempted and the patient did not perform the activity before the current illness, exacerbation or injury. 10-Not Attempted due to Environmental Limitations-(lack of equipment, weather restraints, etc.). 88-Not Attempted due to Medical Conditions or Safety Concerns. Other Treatment Pt seated in recliner, required min A from elevated lift chair sit to stand, then transferred to w/c. Pt declined ADLs on this date, as he clothes are in the washer. She would like to shower tomorrow instead of today. Pt propelled w/c to therapy gym. OT tx focused on increasing BUE strength, activity tolerance, fine motor strength and coordination. Pt removed beads from moderate resistance theraputty, located all beads without cues. She completed "Perfection" activity, matching various shapes to the correct holes, requiring in hand manipulation of the shapes. She then completed nut/bolt block. Pt complete 2 different pipe tree constructions, below shoulder height due to limited shoulder movement bilaterally. Pt propelled w/c around therapy area, frequent rest breaks required. Pt returned to her room. Post tx, pt up in w/c, call light in reach and all needs met. Education OT Patient Education: Correct positioning, Energy conservation, Exercise program, Modified ADL techniques, Progress toward Goal/Update tx plan, Purpose of tx/functional activities, Rehab process Teaching Recipient: Patient Teaching Methods: Discussion Response to Teaching: Verbalize Understanding OT Short Term Goals Short Term Goals Time Frame: May 05, 2021 Toileting hygiene: 3 Shower/bathe self: 3 Lower body dressin Putting on/taking off footwear: 3 OT Chcf Goals Chcf Goals Time Frame: May 14, 2021 Eating (QC): 6 Oral Hygiene (QC): 6 Toileting Hygiene (QC): 6 Shower/Bathe Self (QC): 5 Upper Body Dressing (QC): 5 Lower Body Dressing (QC): 4 On/Off Footwear (QC): 4 Additional Goals: 1-Demonstrate ADL Tasks, 2-Verbalize Understanding, 3- ImproveStrength/Karley 1=Demonstrate adherence to instructed precautions during ADL tasks. 2=Patient will verbalize/demonstrate understanding of assistive devices/m odifications for ADL. 3=Patient will improve strength/tolerance for activity to enable patient to perform ADL's. OT Education/Plan Problem List/Assessment Assessment: Decreased Activ Tolerance, Decreased UE Strength, Impaired Funct Balance, Impaired I ADL's, Impaired Self-Care Skills Discharge Recommendations Plan/Recommendations: Continue POC Treatment Plan/Plan of Care Patient would benefit from OT for education, treatment and training to promote independence in ADL's, mobility, safety and/or upper extremity function for ADL's. Plan of Care: ADL Retraining, Functional Mobility, Group Exercise/Act as Ind, UE Funct Exercise/Act Treatment Duration: May 14, 2021 Frequency: At least 5 of 7 days/Wk (IRF) Estimated Hrs Per Day: 1.5 hours per day Agreement: Yes Rehab Potential: Good Time/GCodes Start Time: 09:15 Stop Time: 10:45 Total Time Billed (hr/min): 90 Billed Treatment Time 1, FA 6 VANNESA PATEL OT Apr 28, 2021 10:02
--- NOTE | 2021-04-28 11:57 | Physical Therapy Daily Note ---
PT Daily Note-Current Subjective Pt. agrees to Rx reluctantly. States "they are talking to me about a NH and I am not going" Pt. 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 Pt.c/o fatigue with TRFs and gait Pain Location: No Pain Reported Mental Status Patient Orientation: Normal For Age Attachments: Oxygen Transfers SCALE: Activities may be completed with or without assistive devices. 0-Gtemjswprd-kihduwc completes the activity by him/herself with no assistance from a helper. 5-Set-up or Clean-up Assistance-helper sets up or cleans up; patient completes activity. [place] assists only prior to or following the activity. 4-Supervision or Touching Assistance-helper provides verbal cues and/or touching/steadying and/or contact guard assistance as patient completes activity. Assistance may be provided throughout the activity or intermittently. 3-Partial/Moderate Assistance-helper does LESS THAN HALF the effort. [place] lifts, holds or supports trunk or limbs, but provides less than half the effort. 2-Substantial/Maximal Assistance-helper does MORE THAN HALF the effort. [place] lifts or holds trunk or limbs and provides more than half the effort. 9-Idhjvdaca-flmxbf does ALL the effort. Patient does none of the effort to complete the activity. Or, the assistance of 2 or more helpers is required for the patient to complete the activity. If activity was not attempted, code reason: 7-Patient Refused. 9-Not Applicable-not attempted and the patient did not perform the activity before the current illness, exacerbation or injury. 10-Not Attempted due to Environmental Limitations-(lack of equipment, weather restraints, etc.). 88-Not Attempted due to Medical Conditions or Safety Concerns. Sit to Stand (QC): 5 Chair/Iex-fp-Rdvfh Xfer(QC): 4 with seat level raised approx 1.5 in pt. stood 7/7 trials with rest breaks between from w/c with arms and VCs Gait Training Does the Patient Walk?: Yes Gait Assistive Device: FWW 6-7 ft to recliner from w/c CGA Exercises Seated Therapy Exercises: Ankle pumps, Sit to stand, Long arc quads, Hip flexion, Hip abd/add Seated Reps: 12 Assessment Current Status: Good Progress much education regarding safety a t home and pts particular situation. This TOOL MAINTENANCE TECHNICIAN encouraged pt. to hire home assist if she is home without family support. Pt. states her family is pursuing this PT Short Term Goals Short Term Goals Time Frame: Apr 27, 2021 Roll Left & Right: 6 Sit to lyin Lying to sitting on side of be: 4 Sit to stand: 3 Chair/hmf-bg-xszzb transfer: 4 Walk 10 feet: 4 Walk 50 feet with two turns: 3 PT Casing Flusher Goals Assisted Goals PT Casing Flusher Goals Time Frame: May 11, 2021 Roll Left & Right (QC): 6 Sit to Lying (QC): 4 Lying-Sitting on Side/Bed(QC): 5 Sit to Stand (QC): 4 Chair/Ptj-wo-Clphb Xfer(QC): 5 Toilet Transfer (QC): 5 Car Transfer (QC): 4 Does the Patient Walk: Yes Walk 10 feet (QC): 4 Walk 50ft with 2 Turns (QC): 4 Walk 150 ft (QC): 4 Walking 10ft on Uneven Surface: 4 1 Step (curb) (QC): 4 4 Steps (QC): 4 12 Steps (QC): 88 Picking up an Object (QC): 4 Wheel 50 feet with 2 turns (QC: 9 Wheel 150 feet: 9 PT Plan Treatment/Plan Treatment Plan: Continue Plan of Care Treatment Plan: Bed Mobility, Education, Functional Activity Karley, Functional Strength, Group Therapy, Gait, Safety, Therapeutic Exercise, Transfers Treatment Duration: May 11, 2021 Frequency: At least 5 of 7 days/Wk (IRF) Estimated Hrs Per Day: 1.5 hours per day Patient and/or Family Agrees t: Yes Safety Risks/Education Patient Education: Gait Training, Transfer Techniques, Correct Positioning, Disease Process, Safety Issues Teaching Recipient: Patient Teaching Methods: Demonstration, Discussion Response to Teaching: Verbalize Understanding, Return Demonstration education focused on wt shift forward and sit to stand TRFs Time/GCodes Time In: 1100 Time Out: 1200 Total Billed Treatment Time: 60 Total Billed Treatment 1,FA35m,GT10m,EX15m SUMAYA FLORES TOOL MAINTENANCE TECHNICIAN Apr 28, 2021 11:56
--- NOTE | 2021-04-28 13:33 | Physical Therapy Daily Note ---
PT Daily Note-Current Subjective Pt. up in recliner. Wants to use toilet . Really wants to have BSC brought to her chair but this CYBER OPS PLANNER encourages a walk to the bathroom for toileting. Pt. agrees as long as BSC over toilet is adjusted higher Pain Location: No Pain Reported Appearance SOB noted with gait and activity but O2 sats steady > 90% Mental Status Patient Orientation: Normal For Age Attachments: Oxygen Transfers SCALE: Activities may be completed with or without assistive devices. 8-Oktpkudglb-iskxkxm completes the activity by him/herself with no assistance from a helper. 5-Set-up or Clean-up Assistance-helper sets up or cleans up; patient completes activity. [place] assists only prior to or following the activity. 4-Supervision or Touching Assistance-helper provides verbal cues and/or touching/steadying and/or contact guard assistance as patient completes activity. Assistance may be provided throughout the activity or intermittently. 3-Partial/Moderate Assistance-helper does LESS THAN HALF the effort. [place] lifts, holds or supports trunk or limbs, but provides less than half the effort. 2-Substantial/Maximal Assistance-helper does MORE THAN HALF the effort. [place] lifts or holds trunk or limbs and provides more than half the effort. 2-Qnmsngsja-grbsyo does ALL the effort. Patient does none of the effort to complete the activity. Or, the assistance of 2 or more helpers is required for the patient to complete the activity. If activity was not attempted, code reason: 7-Patient Refused. 9-Not Applicable-not attempted and the patient did not perform the activity before the current illness, exacerbation or injury. 10-Not Attempted due to Environmental Limitations-(lack of equipment, weather restraints, etc.). 88-Not Attempted due to Medical Conditions or Safety Concerns. sit to stands from lift recline chair and raised BSC all SBA. Gait Training Does the Patient Walk?: Yes Gait Assistive Device: FWW 20 ft x 2 FWW with instruction in safe use of extended O2 tubing, pt. requires assist with this as she cannot let go of FWW to manage it. heavy wt bearing on FWW Exercises Supine Ex: Ankle pumps, Quad Set, Glut sets, Heel Slides, Hip abd/add Supine Reps: 15 Treatments toileted with min to mod assist to manage pants up down , clean up indep Assessment Current Status: Good Progress SOB and fatigue limit function PT Short Term Goals Short Term Goals Time Frame: Apr 27, 2021 Roll Left & Right: 6 Sit to lyin Lying to sitting on side of be: 4 Sit to stand: 3 Chair/fec-je-gnudw transfer: 4 Walk 10 feet: 4 Walk 50 feet with two turns: 3 PT Supercalender Operator Goals Retirement Goals PT Supercalender Operator Goals Time Frame: May 11, 2021 Roll Left & Right (QC): 6 Sit to Lying (QC): 4 Lying-Sitting on Side/Bed(QC): 5 Sit to Stand (QC): 4 Chair/Gfp-uy-Bdygw Xfer(QC): 5 Toilet Transfer (QC): 5 Car Transfer (QC): 4 Does the Patient Walk: Yes Walk 10 feet (QC): 4 Walk 50ft with 2 Turns (QC): 4 Walk 150 ft (QC): 4 Walking 10ft on Uneven Surface: 4 1 Step (curb) (QC): 4 4 Steps (QC): 4 12 Steps (QC): 88 Picking up an Object (QC): 4 Wheel 50 feet with 2 turns (QC: 9 Wheel 150 feet: 9 PT Plan Treatment/Plan Treatment Plan: Continue Plan of Care Treatment Plan: Bed Mobility, Education, Functional Activity Karley, Functional Strength, Group Therapy, Gait, Safety, Therapeutic Exercise, Transfers Treatment Duration: May 11, 2021 Frequency: At least 5 of 7 days/Wk (IRF) Estimated Hrs Per Day: 1.5 hours per day Patient and/or Family Agrees t: Yes Safety Risks/Education Patient Education: Gait Training, Transfer Techniques, Correct Positioning, Disease Process, Safety Issues Teaching Recipient: Patient Teaching Methods: Demonstration, Discussion Response to Teaching: Verbalize Understanding, Return Demonstration, Reinforcement Needed Time/GCodes Time In: 1300 Time Out: 1330 Total Billed Treatment Time: 30 Total Billed Treatment 1,GT10m,EX20m SUMAYA FLORES CYBER OPS PLANNER Apr 28, 2021 13:33
[2021-04-28] MEDS ORDERED: DILT120C82 PO (14:27)
[2021-04-28] MEDS ORDERED: TORS20TA3 PO (14:27)
[2021-04-28] MEDS ORDERED: SPIR50TA4 PO (14:27)
[2021-04-28] MEDS ORDERED: HUM100VI15 SQ (14:27)
[2021-04-28] MEDS ORDERED: WARF-48 PO ×2 (14:27)
[2021-04-28] MEDS ORDERED: METO100T12 PO (14:29)
[2021-04-28] MEDS: warFARin 4 MG (COUMADIN) TAB PO SCH (17:43)
[2021-04-28 20:04] VITALS: BP 100/57
[2021-04-29 06:52] LABS: INR 1.8 (0.8-1.4); PROTHROMBIN TIME PATIENT 21.1 SEC (12.2-14.7)
[2021-04-29 07:10] VITALS: BP 121/56
[2021-04-29] MEDS: DOCUSATE SODIUM 100 MG (COLACE) CAP PO SCH ×2 (07:29→21:29)
[2021-04-29] MEDS: meTOproloL SUCCINATE 50 MG (TOPROL XL) TAB PO SCH (07:30)
[2021-04-29] MEDS: ALLOPURINOL 100 MG (ZYLOPRIM) TAB PO SCH (07:30)
[2021-04-29] MEDS: PIOGLITAZONE 30MG (ACTOS) TAB PO SCH (07:30)
[2021-04-29] MEDS: EUCERIN CREAM 4 OZ JAR (HYDROCERIN) TP SCH ×2 (07:31→21:30)
[2021-04-29] MEDS: DICLOFENAC 1% GEL 100 GM (VOLTAREN) TUBE TOP SCH ×4 (07:31→21:30)
[2021-04-29] MEDS: polyethylene glycoL POWDER 17 GM (MIRALAX) PACK PO SCH ×2 (08:03→21:41)
[2021-04-29] MEDS: SENNA W/DOCUSATE (SENOKOT S) TABLET PO SCH ×2 (08:03→21:41)
--- NOTE | 2021-04-29 08:37 | Cardiology Progress Note ---
Subjective Date Seen by Provider: Apr 29, 2021 Time Seen by Provider: 08:35 Subjective/Events-last exam Patient was seen at bedside, sitting comfortably, denied any chest pain Review of Systems General: No Chills, No Night Sweats, No Fatigue, No Malaise, No Appetite, No Other HEENT: No Head Aches, No Visual Changes, No Eye Pain, No Ear Pain, No Dysphasia, No Sinus Congestion, No Post Nasal Drip, No Sore Throat, No Other Pulmonary: No Dyspnea, No Cough, No Pleuritic Chest Pain, No Other Objective-Cardiology Exam Last Set of Vital Signs Vital Signs 04/29/21 07:10 Temp 36.2 Pulse 92 Resp 18 B/P (MAP) 121/56 (77) Pulse Ox 95 O2 Delivery Nasal Cannula O2 Flow Rate 0.50 I&O Intake and Output 04/29/21 00:00 Intake Total 1700 ml Balance 1700 ml Intake Oral 1700 ml # Voids 6 General: Alert, Oriented X3, Cooperative HEENT: Atraumatic, PERRLA Neck: Supple, No JVD, No Thyromegaly Lungs: Clear to Auscultation, Normal Air Movement Heart: Normal S1, Normal S2, Other (irregularly irregular) Abdomen: Normal Bowel Sounds, Soft Skin: No Rashes, No Significant Lesion Neuro: Normal Speech Psych/Mental Status: Mental Status NL, Mood NL Results Lab Laboratory Tests Test 04/29/21 06:26 Range/Units Prothrombin Time 21.1 H 12.2-14.7 SEC INR Comment 1.8 H 0.8-1.4 A/P-Cardiology Admission Diagnosis Persistent atrial fibrillation Tachycardia Perforated ulcer Pleural effusion Assessment/Plan Persistent atrial fibrillation, on rate control medication, Cardizem increased to 360mg in addition to her Toprol XL. Monitor blood pressure. Maintained on coumadin, patient is concerned about daily blood work, I explained to her that I am trying to achieve a therapeutic level of INR and titrating her Coumadin slowly. Echocardiogram showed normal LV size, EF 55%, left atrial dilation, moderate to severe tricuspid regurgitation, moderate mitral regurgitation, pulmonary hypertension with PA pressure 50 mmHg Perforated ulcer, status post repair, had complication post surgery with continuous leak. Currently better. Continue to monitor Left-sided pleural effusion noted incidentally on her echo. CXR showing moderate bilat pleural effusion. Hypertension, continue current medication and monitor blood pressure Generalized weakness, receiving physical therapy. TC TUCKER MD Apr 29, 2021 08:37
--- NOTE | 2021-04-29 09:17 | Occupational Ther Daily Note ---
OT Current Status-Daily Note Subjective Pt seated in recliner, agreeable to OT Tx. Pt states she doesn't feel like she is ready to go home yet. Mental Status/Objective Patient Orientation: Person, Place, Time, Situation ADL-Treatment Therapy Code Descriptions/Definitions Functional [place] Measure: 0=Not Assessed/NA 4=Minimal Assistance 1=Total Assistance 5=Supervision or Setup 2=Maximal Assistance 6=Modified [place] 3=Moderate Assistance 7=Complete IndependenceSCALE: Activities may be completed with or without assistive devices. 4-Sgrkzrfsnk-xhhspml completes the activity by him/herself with no assistance from a helper. 5-Set-up or Clean-up Assistance-helper sets up or cleans up; patient completes activity. [place] assists only prior to or following the activity. 4-Supervision or Touching Assistance-helper provides verbal cues and/or touching/steadying and/or contact guard assistance as patient completes activity. Assistance may be provided throughout the activity or intermittently. 3-Partial/Moderate Assistance-helper does LESS THAN HALF the effort. [place] lift s, holds or supports trunk or limbs, but provides less than half the effort. 2-Substantial/Maximal Assistance-helper does MORE THAN HALF the effort. [place] lifts or holds trunk or limbs and provides more than half the effort. 4-Kgwesfept-pvsmgo does ALL the effort. Patient does none of the effort to complete the activity. Or, the assistance of 2 or more helpers is required for the patient to complete the activity. If activity was not attempted, code reason: 7-Patient Refused. 9-Not Applicable-not attempted and the patient did not perform the activity before the current illness, exacerbation or injury. 10-Not Attempted due to Environmental Limitations-(lack of equipment, weather restraints, etc.). 88-Not Attempted due to Medical Conditions or Safety Concerns. On/Off Footwear: 5 (set up with gripper socks using sock aide.) Other Treatment Pt seated in recliner, agreeable to OT Tx. Nurse present, removed O2 in order to trial room air. Pt prefers to shower tomorrow prior to the weekend. Pt donned bilateral gripper socks using sock aide after set up assistance. O2 saturation at 99%. She transferred from elevated lift chair to recliner with CGA. Pt propelled w/c to therapy gym. OT tx focused on increasing BUE strength, activity tolerance, fine motor strength and coordination. Pt removed beads from heavy resistance theraputty, able to locate 20/20 beads without cues. Pt then placed 1" pegs from foam pegboard, 1lb wrist weights bilaterally, alternating hands. Pt answered various riddles while completing task. Pt propelled w/c back to her room, transferring to recliner, min A sit to stand from elevated w/c. O2 saturation 96%. Post tx, pt in recliner, call light in reach and all needs met. Nursing notified of pt's position, on RA Education OT Patient Education: Correct positioning, Energy conservation, Exercise pro gram, Modified ADL techniques, Progress toward Goal/Update tx plan, Purpose of tx/functional activities, Rehab process, Safety issues, Transfer techniques Teaching Recipient: Patient Teaching Methods: Discussion Response to Teaching: Verbalize Understanding OT Short Term Goals Short Term Goals Time Frame: May 05, 2021 Toileting hygiene: 3 Shower/bathe self: 3 Lower body dressin Putting on/taking off footwear: 3 OT Senior Living Goals Bench Mover Goals Time Frame: May 14, 2021 Eating (QC): 6 Oral Hygiene (QC): 6 Toileting Hygiene (QC): 6 Shower/Bathe Self (QC): 5 Upper Body Dressing (QC): 5 Lower Body Dressing (QC): 4 On/Off Footwear (QC): 4 Additional Goals: 1-Demonstrate ADL Tasks, 2-Verbalize Understanding, 3-ImproveStrength/Karley 1=Demonstrate adherence to instructed precautions during ADL tasks. 2=Patient will verbalize/demonstrate understanding of assistive devices/modifications for ADL. 3=Patient will improve strength/tolerance for activity to enable patient to perform ADL's. OT Education/Plan Problem List/Assessment Assessment: Decreased Activ Tolerance, Decreased UE Strength, Impaired Funct Balance, Impaired I ADL's, Impaired Self-Care Skills Discharge Recommendations Plan/Recommendations: Continue POC Treatment Plan/Plan of Care Patient would benefit from OT for education, treatment and training to promote independence in ADL's, mobility, safety and/or upper extremity function for ADL's. Plan of Care: ADL Retraining, Functional Mobility, Group Exercise/Act as Ind, UE Funct Exercise/Act Treatment Duration: May 14, 2021 Frequency: At least 5 of 7 days/Wk (IRF) Estimated Hrs Per Day: 1.5 hours per day Agreement: Yes Rehab Potential: Good Time/GCodes Start Time: 08:00 Stop Time: 09:30 Total Time Billed (hr/min): 90 Billed Treatment Time 1, ADL (15'), FA 5 (75') VANNESA PATEL OT Apr 29, 2021 09:17
--- NOTE | 2021-04-29 09:58 | Physical Therapy Daily Note ---
PT Daily Note-Current Subjective Pt. agrees to ther ex in recliner. No c/o pain Pain Location: No Pain Reported Mental Status Patient Orientation: Normal For Age Transfers SCALE: Activities may be completed with or without assistive devices. 8-Zosrveqqny-pnstjbc completes the activity by him/herself with no assistance from a helper. 5-Set-up or Clean-up Assistance-helper sets up or cleans up; patient completes activity. [place] assists only prior to or following the activity. 4-Supervision or Touching Assistance-helper provides verbal cues and/or touching/steadying and/or contact guard assistance as patient completes activity. Assistance may be provided throughout the activity or intermittently. 3-Partial/Moderate Assistance-helper does LESS THAN HALF the effort. [place] lifts, holds or supports trunk or limbs, but provides less than half the effort. 2-Substantial/Maximal Assistance-helper does MORE THAN HALF the effort. [place] lifts or holds trunk or limbs and provides more than half the effort. 5-Qujqcdevm-lctfyj does ALL the effort. Patient does none of the effort to complete the activity. Or, the assistance of 2 or more helpers is required for the patient to complete the activity. If activity was not attempted, code reason: 7-Patient Refused. 9-Not Applicable-not attempted and the patient did not perform the activity before the current illness, exacerbation or injury. 10-Not Attempted due to Environmental Limitations-(lack of equipment, weather restraints, etc.). 88-Not Attempted due to Medical Conditions or Safety Concerns. scooted up in reclined chair mod I Exercises Supine Ex: Bridging, Ankle pumps, Quad Set, Glut sets, Heel Slides, Short Arc Quads, Scooting, Straight leg raise (assisted), Hip abd/add Supine Reps: 12 (x2) 2 sets of 12 Assessment Current Status: Good Progress PT Short Term Goals Short Term Goals Time Frame: Apr 27, 2021 Roll Left & Right: 6 Sit to lyin Lying to sitting on side of be: 4 Sit to stand: 3 Chair/jjl-gv-zracp transfer: 4 Walk 10 feet: 4 Walk 50 feet with two turns: 3 PT Tag Writer Goals Fdc Goals PT Fdc Goals Time Frame: May 11, 2021 Roll Left & Right (QC): 6 Sit to Lying (QC): 4 Lying-Sitting on Side/Bed(QC): 5 Sit to Stand (QC): 4 Chair/Sgr-nn-Tfrut Xfer(QC): 5 Toilet Transfer (QC): 5 Car Transfer (QC): 4 Does the Patient Walk: Yes Walk 10 feet (QC): 4 Walk 50ft with 2 Turns (QC): 4 Walk 150 ft (QC): 4 Walking 10ft on Uneven Surface: 4 1 Step (curb) (QC): 4 4 Steps (QC): 4 12 Steps (QC): 88 Picking up an Object (QC): 4 Wheel 50 feet with 2 turns (QC: 9 Wheel 150 feet: 9 PT Plan Treatment/Plan Treatment Plan: Continue Plan of Care Treatment Plan: Bed Mobility, Education, Functional Activity Karley, Functional Strength, Group Therapy, Gait, Safety, Therapeutic Exercise, Transfers Treatment Duration: May 11, 2021 Frequency: At least 5 of 7 days/Wk (IRF) Estimated Hrs Per Day: 1.5 hours per day Patient and/or Family Agrees t: Yes Safety Risks/Education Patient Education: Correct Positioning, Disease Process Response to Teaching: Reinforcement Needed Time/GCodes Time In: 930 Time Out: 1000 Total Billed Treatment Time: 30 Total Billed Treatment 1,EX30m SUMAYA FLORES MANAGER EMPLOYEE RELATIONS Apr 29, 2021 09:58
--- NOTE | 2021-04-29 10:44 | PM&R Progress Note ---
Subjective HPI/CC On Admission Date Seen by Provider: Apr 29, 2021 Time Seen by Provider: 11:00 Subjective/Events-last exam 04/29/21: Patient doing well Working on walking to bathroom Weakness noted Discharge plan for next week 04/28/21: Pt doing pretty well Wounds look good Heladio has addressed the wound with wound care dressings Bowels are moving INR still sub-therapeutic Insisting on going home but may be better off in I assisted living but we will do family education soon 04/27/2021: Patient doing well Bowels moving Walking well Appears to good Dr. Marshall will increase Cardizem 04/26/21: Pt doing well INR 1.8 Hb 9.5 No major issues Checked meds and lab 04/25/2021: Patient had a large bowel movement yesterday Doing very well Stamina is low but working hard Check meds and labs 04/24/21: Patient doing well Guillermo wraps to lower extremities Diclofenac gel will be used INR 1.6 Bowels are moving well 04/23/2021: Pt doing really well Had a large BM last night Diclofenac gel will be ordered Tylenol will be ordered for the pain Has some hemorrhoids 04/22/2021: Pt doing really well Bowels are moving Checked meds and labs Oxygen at 0.5 liters 04/21/2021: Pt doing a lot better Using hen-xk-gpgbl Walks ten feet with a walker Oxygen at half a liter Feet are really cracked - will place lotion Hgb 9.3 INR 1.5 Heart rate in the 90s since Cardizem was increased [place] score is 29/30 Review of Systems General: Fatigue, Malaise Objective Exam Vital Signs Vital Signs Date Time Temp Pulse Resp B/P (MAP) Pulse Ox O2 Delivery O2 Flow Rate FiO2 04/29/21 21:00 Room Air 04/29/21 20:39 36.6 76 18 93/62 (72) 91 0.50 Capillary Refill : General Appearance: No Apparent Distress, WD/WN, Chronically ill HEENT: PERRL/EOMI, Normal ENT Inspection, Pharynx Normal Neck: Full Range of Motion, Normal Inspection, Non Tender, Supple, Carotid Bruit Respiratory: Chest Non Tender, Lungs Clear, No Accessory Muscle Use, No Respiratory Distress, Decreased Breath Sounds Cardiovascular: No Gallop, No JVD, No Murmur, Normal Peripheral Pulses, Irregularly Irregular, Tachycardia Gastrointestinal: Normal Bowel Sounds, No Organomegaly, No Pulsatile Mass, Soft, Tenderness Back: Normal Inspection, No CVA Tenderness, No Vertebral Tenderness Extremity: Normal Capillary Refill, Normal Inspection, Normal Range of Motion, Non Tender, No Calf Tenderness, Pedal Edema Neurologic/Psychiatric: Alert, Oriented x3, No Motor/Sensory Deficits, Normal Mood/Affect, Abnormal Gait (Unable to ambulate), Motor Weakness (Generalized) Skin: Normal Color, Warm/Dry Lymphatic: No Adenopathy Results/Procedures Lab Patient resulted labs reviewed. FIM Transfers Therapy Code Descriptions/Definitions Functional [place] Measure: 0=Not Assessed/NA 4=Minimal Assistance 1=Total Assistance 5=Supervision or Setup 2=Maximal Assistance 6=Modified [place] 3=Moderate Assistance 7=Complete IndependenceSCALE: Activities may be completed with or without assistive devices. 9-Wautswfphg-ibjcqxz completes the activity by him/herself with no assistance from a helper. 5-Set-up or Clean-up Assistance-helper sets up or cleans up; patient completes activity. [place] assists only prior to or following the activity. 4-Supervision or Touching Assistance-helper provides verbal cues and/or touching/steadying and/or contact guard assistance as patient completes activity. Assistance may be provided throughout the activity or intermittently. 3-Partial/Moderate Assistance-helper does LESS THAN HALF the effort. [place] lifts, holds or supports trunk or limbs, but provides less than half the effort. 2-Substantial/Maximal Assistance-helper does MORE THAN HALF the effort. [place] lifts or holds trunk or limbs and provides more than half the effort. 1-Edoowtcyz-ggftzy does ALL the effort. Patient does none of the effort to complete the activity. Or, the assistance of 2 or more helpers is required for the patient to complete the activity. If activity was not attempted, code reason: 7-Patient Refused. 9-Not Applicable-not attempted and the patient did not perform the activity before the current illness, exacerbation or injury. 10-Not Attempted due to Environmental Limitations-(lack of equipment, weather restraints, etc.). 88-Not Attempted due to Medical Conditions or Safety Concerns. Roll Left to Right (QC): 5 Sit to Lying (QC): 4 Sit to Stand (QC): 5 Chair/Ftr-cm-Ctezu Xfer(QC): 4 Car Transfer (QC): 88 Gait Training Does the Patient Walk?: Yes Distance: 20'x2 Walk 10 feet (QC): 4 Walk 50 ft with 2 Turns(QC): 88 Walk 150 ft (QC): 88 Walking 10ft/uneven surface-QC: 88 Gait Persons Needed: 1 Gait Assistive Device: FWW Wheelchair Training Does the Pt Use a Wheelchair?: Yes Distance: 100' Wheel 50 ft with 2 turns (QC): 4 Wheel 150 ft (QC): 4 Type of Wheelchair: Manual Stair Training 1 Step (curb) (QC): 88 4 Steps (QC): 88 12 Steps (QC): 88 Balance Picking up an Object (QC): 88 ADL-Treatment Eating (QC): 5 (Set up assist per pt report.) Oral Hygiene (QC): 7 Shower/Bathe Self (QC): 4 (SBA seated on SC. OT educated pt on adaptive techniques to dry LEs.) Upper Body Dressing (QC): 5 (set up with ice puller shirt. Increased time due to limited shoulder movement.) Lower Body Dressing (QC): 2 (Pt able to thread brief over toes on RLE, assist to thread past heel. Assist to thread LLE and assist with pant hike. Max A sit to stand for pant hike.) On/Off Footwear (QC): 5 (set up with gripper socks using sock aide.) Toileting Hygiene (QC): 2 (Assist to manage pants down/up, pt able to wash periarea and assist with some clothing management. Assistance with washing buttocks.) Assessment/Plan Assessment and Plan Assess & Plan/Chief Complaint Assessment: Critical illness myopathy Chronic atrial fibrillation not rate controlled consulting Dr. Marshall Urinary retention now resolved ADAIR drain in place consulting Dr. Gamez Subtherapeutic INR 1.5 Coumadin anticoagulation Plan: Supportive care Rehab protocol Consult Dr. Gamez Consult Dr. Marshall 04/21/2021: Supportive care Appreciate cardiology Appreciate general surgery 04/22/2021: Wean oxygen Supportive care 04/23/2021: Supportive care Wean oxygen 04/24/2021: Diclofenac gel Monitor INR Wrap legs 04/25/2021: Supportive care Wrap legs 04/26/21: Monitor INR Supportive care 04/27/2021: Supportive care Increase meds for rate control of A. fib 04/28/21: Monitor closely DC next week 04/29/2021: Supportive care Monitor INR (1) Gastric ulcer with perforation (2) Atrial fibrillation (3) Warfarin anticoagulation (4) Urinary retention (5) Diabetes (6) Myopathy JARON BRANNON DO Apr 29, 2021 10:44
--- NOTE | 2021-04-29 12:04 | Physical Therapy Daily Note ---
PT Daily Note-Current Subjective Pt. in recliner. Initially very lethargic therefore vitals were taken (see below assessment ) Agrees to Rx but reluctant to gait . Participated with encouragement Pain Location: No Pain Reported Transfers SCALE: Activities may be completed with or without assistive devices. 6-Kugfclxyfz-chhnfuv completes the activity by him/herself with no assistance from a helper. 5-Set-up or Clean-up Assistance-helper sets up or cleans up; patient completes activity. [place] assists only prior to or following the activity. 4-Supervision or Touching Assistance-helper provides verbal cues and/or touching/steadying and/or contact guard assistance as patient completes activity. Assistance may be provided throughout the activity or intermittently. 3-Partial/Moderate Assistance-helper does LESS THAN HALF the effort. [place] lifts, holds or supports trunk or limbs, but provides less than half the effort. 2-Substantial/Maximal Assistance-helper does MORE THAN HALF the effort. [place] lifts or holds trunk or limbs and provides more than half the effort. 2-Qwuzstnty-clivyb does ALL the effort. Patient does none of the effort to c omplete the activity. Or, the assistance of 2 or more helpers is required for the patient to complete the activity. If activity was not attempted, code reason: 7-Patient Refused. 9-Not Applicable-not attempted and the patient did not perform the activity before the current illness, exacerbation or injury. 10-Not Attempted due to Environmental Limitations-(lack of equipment, weather restraints, etc.). 88-Not Attempted due to Medical Conditions or Safety Concerns. Sit to Stand (QC): 5 Chair/Fej-lt-Xxlxv Xfer(QC): 5 Toilet Transfer (QC): 5 all TRFs from raised seat surface. lift recline chair utilized which pt has at home. Toilet seat raised considerably as well, required only SBA to CGA this Rx Gait Training Does the Patient Walk?: Yes Walk 10 feet (QC): 5 Gait Persons Needed: 1 Gait Assistive Device: FWW 3 bouts of gait at 15 to 20 ft each with SOB and fatigue noted each trial. Pt. recovering in approx 2 mins Exercises Supine Ex: Ankle pumps, Quad Set, Glut sets, Heel Slides, Short Arc Quads, Scooting, Straight leg raise, Hip abd/add Supine Reps: 15 Seated Therapy Exercises: Ankle pumps, Sit to stand, Long arc quads, Hip flexion Seated Reps: 15 Treatments supine therex in reclined chair, seated LE ther ex in recliner as well. sit to stand TRFs recliner and toilet . gait with FWW short dist. Assessment Current Status: Good Progress on room air at rest O2 sats 92% , seated BP 113/77 HR 99BPM, standing BP 123/78 HR 126, O2 sats 94%, all tolerated well PT Short Term Goals Short Term Goals Time Frame: Apr 27, 2021 Roll Left & Right: 6 Sit to lyin Lying to sitting on side of be: 4 Sit to stand: 3 Chair/vrx-lw-kiywi transfer: 4 Walk 10 feet: 4 Walk 50 feet with two turns: 3 PT Residential Goals Residential Goals PT Residential Goals Time Frame: May 11, 2021 Roll Left & Right (QC): 6 Sit to Lying (QC): 4 Lying-Sitting on Side/Bed(QC): 5 Sit to Stand (QC): 4 Chair/Qme-yu-Kjjjf Xfer(QC): 5 Toilet Transfer (QC): 5 Car Transfer (QC): 4 Does the Patient Walk: Yes Walk 10 feet (QC): 4 Walk 50ft with 2 Turns (QC): 4 Walk 150 ft (QC): 4 Walking 10ft on Uneven Surface: 4 1 Step (curb) (QC): 4 4 Steps (QC): 4 12 Steps (QC): 88 Picking up an Object (QC): 4 Wheel 50 feet with 2 turns (QC: 9 Wheel 150 feet: 9 PT Plan Treatment/Plan Treatment Plan: Continue Plan of Care Treatment Plan: Bed Mobility, Education, Functional Activity Karley, Functional Strength, Group Therapy, Gait, Safety, Therapeutic Exercise, Transfers Treatment Duration: May 11, 2021 Frequency: At least 5 of 7 days/Wk (IRF) Estimated Hrs Per Day: 1.5 hours per day Patient and/or Family Agrees t: Yes Safety Risks/Education Patient Education: Gait Training, Transfer Techniques, Correct Positioning, Disease Process, Safety Issues Teaching Recipient: Patient Teaching Methods: Demonstration, Discussion Response to Teaching: Verbalize Understanding, Return Demonstration, Reinforcement Needed Time/GCodes Time In: 1100 Time Out: 1200 Total Billed Treatment Time: 60 Total Billed Treatment 1,EX15m,GT20m,FA25m SUMAYA FLORES FURNITURE INSPECTOR Apr 29, 2021 12:04
[2021-04-29] MEDS: warFARin 4 MG (COUMADIN) TAB PO SCH (17:46)
[2021-04-29 20:39] VITALS: BP 93/62
[2021-04-30 05:46] LABS: INR 1.7 (0.8-1.4); PROTHROMBIN TIME PATIENT 20.8 SEC (12.2-14.7)
[2021-04-30 07:26] VITALS: BP 118/62
[2021-04-30] MEDS: MULTIVIT W/MINERALS TAB (THERAGRAN M) PO SCH (07:36)
[2021-04-30] MEDS: DOCUSATE SODIUM 100 MG (COLACE) CAP PO SCH ×2 (09:23→21:33)
[2021-04-30] MEDS: PIOGLITAZONE 30MG (ACTOS) TAB PO SCH (09:23)
[2021-04-30] MEDS: ALLOPURINOL 100 MG (ZYLOPRIM) TAB PO SCH (09:23)
[2021-04-30] MEDS: polyethylene glycoL POWDER 17 GM (MIRALAX) PACK PO SCH ×2 (09:23→21:33)
[2021-04-30] MEDS: SENNA W/DOCUSATE (SENOKOT S) TABLET PO SCH ×2 (09:23→21:33)
[2021-04-30] MEDS: DICLOFENAC 1% GEL 100 GM (VOLTAREN) TUBE TOP SCH ×4 (09:24→21:27)
[2021-04-30] MEDS: EUCERIN CREAM 4 OZ JAR (HYDROCERIN) TP SCH ×2 (09:24→21:28)
--- NOTE | 2021-04-30 09:34 | Occupational Ther Daily Note ---
OT Current Status-Daily Note Subjective Pt seated in recliner, agreeable to OT Tx with focus on ADLs Mental Status/Objective Patient Orientation: Person, Place, Situation ADL-Treatment Therapy Code Descriptions/Definitions Functional [place] Measure: 0=Not Assessed/NA 4=Minimal Assistance 1=Total Assistance 5=Supervision or Setup 2=Maximal Assistance 6=Modified [place] 3=Moderate Assistance 7=Complete IndependenceSCALE: Activities may be completed with or without assistive devices. 0-Wpqmlnbjkt-pbyzuvv completes the activity by him/herself with no assistance from a helper. 5-Set-up or Clean-up Assistance-helper sets up or cleans up; patient completes activity. [place] assists only prior to or following the activity. 4-Supervision or Touching Assistance-helper provides verbal cues and/or touching/steadying and/or contact guard assistance as patient completes activity. Assistance may be provided throughout the activity or intermittently. 3-Partial/Moderate Assistance-helper does LESS THAN HALF the effort. [place] lifts, holds or supports trunk or limbs, but provides less than half the effort. 2-Substantial/Maximal Assistance-helper does MORE THAN HALF the effort. [place] lifts or holds trunk or limbs and provides more than half the effort. 6-Udgavkhac-tobnpq does ALL the effort. Patient does none of the effort to comp lete the activity. Or, the assistance of 2 or more helpers is required for the patient to complete the activity. If activity was not attempted, code reason: 7-Patient Refused. 9-Not Applicable-not attempted and the patient did not perform the activity before the current illness, exacerbation or injury. 10-Not Attempted due to Environmental Limitations-(lack of equipment, weather restraints, etc.). 88-Not Attempted due to Medical Conditions or Safety Concerns. Eating (QC): 6 (Per pt report.) Oral Hygiene (QC): 6 (Per clincial judgment, pt independent seated at sink.) Shower/Bathe Self (QC): 5 (set up assist. Pt able to wash/dry all parts seated on SC.) Upper Body Dressing (QC): 5 (set up with door puller shirt.) Lower Body Dressing (QC): 3 (Min A with pant hike. Pt threaded brief using storeroom clerk) On/Off Footwear: 3 (Min A. Assist with jarvis wraps, min A with L gripper sock using sock aide. Pt used sock aide, increased time.) Toileting Hygiene (QC): 3 (Min A with pant hike.) Other Treatment Pt seated in recliner, completed sit to stand from elevated surface, CGA. Pt used FWW to transfer into bathroom and onto KS. Pt doffed clothes completed shower, and donned clothes as outlined above. Pt completed sit to stand transfer from KS with min A using GBs. Pt transferred to w/c. [id number]: OT/PT cotreat due to skill of 2 clinicians required which a shale processing technician could not perform in order to coordinate UE/LEs, decrease fall risk, and due to pt's limitations in strength, activity tolerance, mobility and transfers as pt fatigues. OT focused on UE placement, cues for sequencing and safety, PT focused on LE placement, gross overall movement, transfers and mobility. Pt propelled w/c to therapy gym, multiple rest breaks required. Pt attempted sit to stand transfer from w/c, unsuccessful first trail, able to stand 2nd try. Pt transferred to therapy mat. Post tx, pt seated EOM, PT present, all needs met. Education OT Patient Education: Correct positioning, Modified ADL techniques, Progress toward Goal/Update tx plan, Purpose of tx/functional activities Teaching Recipient: Patient Teaching Methods: Discussion Response to Teaching: Verbalize Understanding OT Short Term Goals Short Term Goals Time Frame: May 05, 2021 Toileting hygiene: 3 Shower/bathe self: 3 Lower body dressin Putting on/taking off footwear: 3 OT Skilled Nursing Goals Stitch Bonder Machine Operator Helper Goals Time Frame: May 14, 2021 Eating (QC): 6 Oral Hygiene (QC): 6 Toileting Hygiene (QC): 6 Shower/Bathe Self (QC): 5 Upper Body Dressing (QC): 5 Lower Body Dressing (QC): 4 On/Off Footwear (QC): 4 Additional Goals: 1-Demonstrate ADL Tasks, 2-Verbalize Understanding, 3- ImproveStrength/Karley 1=Demonstrate adherence to instructed precautions during ADL tasks. 2=Patient will verbalize/demonstrate understanding of assistive devices/modifications for ADL. 3=Patient will improve strength/tolerance for activity to enable patient to perform ADL's. OT Education/Plan Problem List/Assessment Assessment: Decreased Activ Tolerance, Decreased UE Strength, Impaired Funct Balance, Impaired I ADL's, Impaired Self-Care Skills, Restricted Funct UE ROM Discharge Recommendations Plan/Recommendations: Continue POC Treatment Plan/Plan of Care Patient would benefit from OT for education, treatment and training to promote independence in ADL's, mobility, safety and/or upper extremity function for ADL's. Plan of Care: ADL Retraining, Functional Mobility, Group Exercise/Act as Ind, UE Funct Exercise/Act Treatment Duration: May 14, 2021 Frequency: At least 5 of 7 days/Wk (IRF) Estimated Hrs Per Day: 1.5 hours per day Agreement: Yes Rehab Potential: Good Time/GCodes Start Time: 08:00 Stop Time: 09:30 Total Time Billed (hr/min): 90 Billed Treatment Time OT tx x60', Cotreat x30' 1, ADL 4 (60'), FA 2 (30') VANNESA PATEL OT Apr 30, 2021 09:34
--- NOTE | 2021-04-30 09:55 | Physical Therapy Daily Note ---
PT Daily Note-Current Subjective Pt. with OT after shower. Expresses some fatigue. Willing to work with encouragement and rest breaks Pain Location: No Pain Reported Appearance pts. LEs and abdomen appear larger and tighter that yesterday to this SHOP MECHANIC HELPER, this was reported to nursing Mental Status Patient Orientation: Normal For Age Transfers SCALE: Activities may be completed with or without assistive devices. 5-Nraqgckoqi-igkvduo completes the activity by him/herself with no assistance from a helper. 5-Set-up or Clean-up Assistance-helper sets up or cleans up; patient completes activity. [place] assists only prior to or following the activity. 4-Supervision or Touching Assistance-helper provides verbal cues and/or touching/steadying and/or contact guard assistance as patient completes activity. Assistance may be provided throughout the activity or intermittently. 3-Partial/Moderate Assistance-helper does LESS THAN HALF the effort. [place] lifts, holds or supports trunk or limbs, but provides less than half the effort. 2-Substantial/Maximal Assistance-helper does MORE THAN HALF the effort. [place] lifts or holds trunk or limbs and provides more than half the effort. 7-Zzgxtdrwh-ipthvr does ALL the effort. Patient does none of the effort to complete the activity. Or, the assistance of 2 or more helpers is required for the patient to complete the activity. If activity was not attempted, code reason: 7-Patient Refused. 9-Not Applicable-not attempted and the patient did not perform the activity before the current illness, exacerbation or injury. 10-Not Attempted due to Environmental Limitations-(lack of equipment, weather restraints, etc.). 88-Not Attempted due to Medical Conditions or Safety Concerns. Roll Left & Right (QC): 6 Sit to Lying (QC): 5 Lying to Sitting/Side of Bed(Q: 6 Sit to Stand (QC): 4 Chair/Kon-cn-Xxllh Xfer(QC): 4 higher surfaces required for sit to stand, cushions in w/c, lift recline used , bed height raised Gait Training Does the Patient Walk?: Yes Walk 10 feet (QC): 4 Gait Persons Needed: 1 Gait Assistive Device: FWW 15 to 20 ft x 4 with CGA and w/c close behind. O2 sats steady > 90% however pt. with noted dyspnea. Wheelchair Training Does the Pt Use a Wheelchair?: Yes Wheel 50 ft with 2 turns (QC): 5 Type of Wheelchair: Manual Exercises Supine Ex: Bridging, Ankle pumps, Quad Set, Rolling, Glut sets, Heel Slides, Hip abd/add Supine Reps: 12 Seated Therapy Exercises: Ankle pumps, Sit to stand, Long arc quads, Hip flexion Seated Reps: 12 Treatments TRFs, gait, therex, co Rx OT 30 m for coordination of U&L ext funct mobility training activity requiring 2 skilled clinicians Assessment Current Status: Fair Progress funct mob limited by SOB and fatigue PT Short Term Goals Short Term Goals Time Frame: Apr 27, 2021 Roll Left & Right: 6 Sit to lyin Lying to sitting on side of be: 4 Sit to stand: 3 Chair/nvt-vj-mfnjm transfer: 4 Walk 10 feet: 4 Walk 50 feet with two turns: 3 PT Wafer Cleaner Goals [facility] Goals PT Wafer Cleaner Goals Time Frame: May 11, 2021 Roll Left & Right (QC): 6 Sit to Lying (QC): 4 Lying-Sitting on Side/Bed(QC): 5 Sit to Stand (QC): 4 Chair/Uyf-wg-Fojkk Xfer(QC): 5 Toilet Transfer (QC): 5 Car Transfer (QC): 4 Does the Patient Walk: Yes Walk 10 feet (QC): 4 Walk 50ft with 2 Turns (QC): 4 Walk 150 ft (QC): 4 Walking 10ft on Uneven Surface: 4 1 Step (curb) (QC): 4 4 Steps (QC): 4 12 Steps (QC): 88 Picking up an Object (QC): 4 Wheel 50 feet with 2 turns (QC: 9 Wheel 150 feet: 9 PT Plan Treatment/Plan Treatment Plan: Continue Plan of Care Treatment Plan: Bed Mobility, Education, Functional Activity Karley, Functional Strength, Group Therapy, Gait, Safety, Therapeutic Exercise, Transfers Treatment Duration: May 11, 2021 Frequency: At least 5 of 7 days/Wk (IRF) Estimated Hrs Per Day: 1.5 hours per day Patient and/or Family Agrees t: Yes Safety Risks/Education Patient Education: Gait Training, Transfer Techniques, Correct Positioning, W/C Management, Disease Process, Safety Issues Teaching Recipient: Patient Teaching Methods: Demonstration, Discussion Response to Teaching: Verbalize Understanding, Return Demonstration, Reinforcement Needed Time/GCodes Time In: 900 Time Out: 1000 Total Billed Treatment Time: 60 Total Billed Treatment 1,GT25m,EX15m,FA20m SUMAYA FLORES SHOP MECHANIC HELPER Apr 30, 2021 09:55
--- NOTE | 2021-04-30 11:17 | PM&R Progress Note ---
Subjective HPI/CC On Admission Date Seen by Provider: Apr 30, 2021 Time Seen by Provider: 11:20 Subjective/Events-last exam 04/30/2021: Patient doing okay Blood pressure meds and warfarin altered by Dr. Marshall Bowels are moving Convinced she is going home I am reading the social work note that states otherwise I told her that we are looking at a senior living but she said not at home or any good so she is not going? 04/29/21: Patient doing well Working on walking to bathroom Weakness noted Discharge plan for next week 04/28/21: Pt doing pretty well Wounds look good Heladio has addressed the wound with wound care dressings Bowels are moving INR still sub-therapeutic Insisting on going home but may be better off in I assisted living but we will do family education soon 04/27/2021: Patient doing well Bowels moving Walking well Appears to good Dr. Marshall will increase Cardizem 04/26/21: Pt doing well INR 1.8 Hb 9.5 No major issues Checked meds and lab 04/25/2021: Patient had a large bowel movement yesterday Doing very well Stamina is low but working hard Check meds and labs 04/24/21: Patient doing well Guillermo wraps to lower extremities Diclofenac gel will be used INR 1.6 Bowels are moving well 04/23/2021: Pt doing really well Had a large BM last night Diclofenac gel will be ordered Tylenol will be ordered for the pain Has some hemorrhoids 04/22/2021: Pt doing really well Bowels are moving Checked meds and labs Oxygen at 0.5 liters 04/21/2021: Pt doing a lot better Using bqa-nc-apngp Walks ten feet with a walker Oxygen at half a liter Feet are really cracked - will place lotion Hgb 9.3 INR 1.5 Heart rate in the 90s since Cardizem was increased [place] score is 29/30 Review of Systems General: Fatigue, Malaise Objective Exam Vital Signs Vital Signs Date Time Temp Pulse Resp B/P (MAP) Pulse Ox O2 Delivery O2 Flow Rate FiO2 04/30/21 21:30 Nasal Cannula 0.50 04/30/21 20:00 36.4 73 18 104/56 (72) 91 Capillary Refill : General Appearance: No Apparent Distress, WD/WN, Chronically ill HEENT: PERRL/EOMI, Normal ENT Inspection, Pharynx Normal Neck: Full Range of Motion, Normal Inspection, Non Tender, Supple, Carotid Bruit Respiratory: Chest Non Tender, Lungs Clear, No Accessory Muscle Use, No Respiratory Distress, Decreased Breath Sounds Cardiovascular: No Gallop, No JVD, No Murmur, Normal Peripheral Pulses, Irregularly Irregular, Tachycardia Gastrointestinal: Normal Bowel Sounds, No Organomegaly, No Pulsatile Mass, Soft, Tenderness Back: Normal Inspection, No CVA Tenderness, No Vertebral Tenderness Extremity: Normal Capillary Refill, Normal Inspection, Normal Range of Motion, Non Tender, No Calf Tenderness, Pedal Edema Neurologic/Psychiatric: Alert, Oriented x3, No Motor/Sensory Deficits, Normal Mood/Affect, Abnormal Gait (Unable to ambulate), Motor Weakness (Generalized) Skin: Normal Color, Warm/Dry Lymphatic: No Adenopathy Results/Procedures Lab Patient resulted labs reviewed. FIM Transfers Therapy Code Descriptions/Definitions Functional [place] Measure: 0=Not Assessed/NA 4=Minimal Assistance 1=Total Assistance 5=Supervision or Setup 2=Maximal Assistance 6=Modified [place] 3=Moderate Assistance 7=Complete IndependenceSCALE: Activities may be completed with or without assistive devices. 0-Wuqosciozz-rtikjew completes the activity by him/herself with no assistance from a helper. 5-Set-up or Clean-up Assistance-helper sets up or cleans up; patient completes activity. [place] assists only prior to or following the activity. 4-Supervision or Touching Assistance-helper provides verbal cues and/or touching/steadying and/or contact guard assistance as patient completes activity. Assistance may be provided throughout the activity or intermittently. 3-Partial/Moderate Assistance-helper does LESS THAN HALF the effort. [place] lifts, holds or supports trunk or limbs, but provides less than half the effort. 2-Substantial/Maximal Assistance-helper does MORE THAN HALF the effort. [place] lifts or holds trunk or limbs and provides more than half the effort. 1-Mhlzaphoc-viggop does ALL the effort. Patient does none of the effort to complete the activity. Or, the assistance of 2 or more helpers is required for the patient to complete the activity. If activity was not attempted, code reason: 7-Patient Refused. 9-Not Applicable-not attempted and the patient did not perform the activity b efore the current illness, exacerbation or injury. 10-Not Attempted due to Environmental Limitations-(lack of equipment, weather restraints, etc.). 88-Not Attempted due to Medical Conditions or Safety Concerns. Roll Left to Right (QC): 6 Sit to Lying (QC): 5 Sit to Stand (QC): 4 Chair/Ift-me-Mxpyl Xfer(QC): 4 Car Transfer (QC): 88 Gait Training Does the Patient Walk?: Yes Distance: 20'x2 Walk 10 feet (QC): 4 Walk 50 ft with 2 Turns(QC): 88 Walk 150 ft (QC): 88 Walking 10ft/uneven surface-QC: 88 Gait Persons Needed: 1 Gait Assistive Device: FWW Wheelchair Training Does the Pt Use a Wheelchair?: Yes Distance: 100' Wheel 50 ft with 2 turns (QC): 5 Wheel 150 ft (QC): 4 Type of Wheelchair: Manual Stair Training 1 Step (curb) (QC): 88 4 Steps (QC): 88 12 Steps (QC): 88 Balance Picking up an Object (QC): 88 ADL-Treatment Eating (QC): 6 (Per pt report.) Oral Hygiene (QC): 6 (Per clincial judgment, pt independent seated at sink.) Shower/Bathe Self (QC): 5 (set up assist. Pt able to wash/dry all parts seated on SC.) Upper Body Dressing (QC): 5 (set up with ice puller shirt.) Lower Body Dressing (QC): 3 (Min A with pant hike. Pt threaded brief using jeep mechanic) On/Off Footwear (QC): 3 (Min A. Assist with guillermo wraps, min A with L gripper soc k using sock aide. Pt used sock aide, increased time.) Toileting Hygiene (QC): 3 (Min A with pant hike.) Assessment/Plan Assessment and Plan Assess & Plan/Chief Complaint Assessment: Critical illness myopathy Chronic atrial fibrillation not rate controlled consulting Dr. Marshall Urinary retention now resolved ADAIR drain in place consulting Dr. Gamez Subtherapeutic INR 1.5 Coumadin anticoagulation Plan: Supportive care Rehab protocol Consult Dr. Gamez Consult Dr. Marshall 04/21/2021: Supportive care Appreciate cardiology Appreciate general surgery 04/22/2021: Wean oxygen Supportive care 04/23/2021: Supportive care Wean oxygen 04/24/2021: Diclofenac gel Monitor INR Wrap legs 04/25/2021: Supportive care Wrap legs 04/26/21: Monitor INR Supportive care 04/27/2021: Supportive care Increase meds for rate control of A. fib 04/28/21: Monitor closely DC next week 04/29/2021: Supportive care Monitor INR 04/30/2021: [facility] on Monday (1) Gastric ulcer with perforation (2) Atrial fibrillation (3) Warfarin anticoagulation (4) Urinary retention (5) Diabetes (6) Myopathy JARON BRANNON DO Apr 30, 2021 11:17
--- NOTE | 2021-04-30 13:38 | Cardiology Progress Note ---
Subjective Date Seen by Provider: Apr 30, 2021 Time Seen by Provider: 13:37 Subjective/Events-last exam Patient was seen at bedside, sitting comfortably, no new complaint Review of Systems General: No Chills, No Night Sweats; Fatigue; No Malaise, No Appetite, No Other HEENT: No Head Aches, No Visual Changes, No Eye Pain, No Ear Pain, No Dysphasia, No Sinus Congestion, No Post Nasal Drip, No Sore Throat, No Other Pulmonary: No Dyspnea, No Cough, No Pleuritic Chest Pain, No Other Cardiovascular: No: Chest Pain, Palpitations, Orthopnea, Paroxysmal Noc. Dyspnea, Edema, Lt Headedness, Other Objective-Cardiology Exam Last Set of Vital Signs Vital Signs 04/30/21 04/30/21 04/30/21 07:26 08:23 10:44 Temp 36.2 Pulse 91 Resp 16 B/P (MAP) 118/62 (80) Pulse Ox 94 O2 Delivery Room Air O2 Flow Rate 2.00 I&O Intake and Output 04/30/21 00:00 Intake Total 1150 ml Balance 1150 ml Intake Oral 1150 ml # Voids 7 # Bowel Movements 1 General: Alert, Oriented X3, Cooperative HEENT: Atraumatic, PERRLA Neck: Supple, No JVD, No Thyromegaly Lungs: Clear to Auscultation, Normal Air Movement Heart: Normal S1, Normal S2, Other (irregularly irregular) Abdomen: Normal Bowel Sounds, Soft Skin: No Rashes, No Significant Lesion Neuro: Normal Speech Psych/Mental Status: Mental Status NL, Mood NL A/P-Cardiology Admission Diagnosis Persistent atrial fibrillation Tachycardia Perforated ulcer Pleural effusion Assessment/Plan Persistent atrial fibrillation, on rate control medication, Cardizem increased to 360mg in addition to her Toprol XL. Monitor blood pressure. Maintained on coumadin, patient is concerned about daily blood work, I explained to her that I am trying to achieve a therapeutic level of INR and titrating her Coumadin slowly. Echocardiogram showed normal LV size, EF 55%, left atrial dilation, moderate to severe tricuspid regurgitation, moderate mitral regurgitation, pulmonary hypertension with PA pressure 50 mmHg Perforated ulcer, status post repair, had complication post surgery with continuous leak. Currently better. Continue to monitor Left-sided pleural effusion noted incidentally on her echo. CXR showing moderate bilat pleural effusion. Hypertension, continue current medication and monitor blood pressure Generalized weakness, receiving physical therapy. TC TUCKER MD Apr 30, 2021 13:38
--- NOTE | 2021-04-30 14:37 | Physical Therapy Daily Note ---
PT Daily Note-Current Subjective Pt. in recliner, agreed to supine and sit ther ex and sit to stand. Pain Location: No Pain Reported Mental Status Patient Orientation: Normal For Age Transfers SCALE: Activities may be completed with or without assistive devices. 5-Edhfelbzud-dinnosv completes the activity by him/herself with no assistance from a helper. 5-Set-up or Clean-up Assistance-helper sets up or cleans up; patient completes activity. [place] assists only prior to or following the activity. 4-Supervision or Touching Assistance-helper provides verbal cues and/or touching/steadying and/or contact guard assistance as patient completes activity. Assistance may be provided throughout the activity or intermittently. 3-Partial/Moderate Assistance-helper does LESS THAN HALF the effort. [place] lifts, holds or supports trunk or limbs, but provides less than half the effort. 2-Substantial/Maximal Assistance-helper does MORE THAN HALF the effort. [place] lifts or holds trunk or limbs and provides more than half the effort. 6-Fujoevjtc-vkkphr does ALL the effort. Patient does none of the effort to complete the activity. Or, the assistance of 2 or more helpers is required for the patient to complete the activity. If activity was not attempted, code reason: 7-Patient Refused. 9-Not Applicable-not attempted and the patient did not perform the activity before the current illness, exacerbation or injury. 10-Not Attempted due to Environmental Limitations-(lack of equipment, weather restraints, etc.). 88-Not Attempted due to Medical Conditions or Safety Concerns. sit to stand from lift recline chair min assist, scoots self up i recliner with VCs Exercises Supine Ex: Bridging, Ankle pumps, Quad Set, Glut sets, Heel Slides, Short Arc Quads, Scooting, Straight leg raise, Hip abd/add Supine Reps: 15 Seated Therapy Exercises: Ankle pumps, Sit to stand, Long arc quads, Hip flexion Seated Reps: 10 Assessment Current Status: Fair Progress edema and joint pain limits patient PT Short Term Goals Short Term Goals Time Frame: Apr 27, 2021 Roll Left & Right: 6 Sit to lyin Lying to sitting on side of be: 4 Sit to stand: 3 Chair/utt-cc-yzobo transfer: 4 Walk 10 feet: 4 Walk 50 feet with two turns: 3 PT Senior Care Goals Statue Maker Goals PT Senior Care Goals Time Frame: May 11, 2021 Roll Left & Right (QC): 6 Sit to Lying (QC): 4 Lying-Sitting on Side/Bed(QC): 5 Sit to Stand (QC): 4 Chair/Eld-bi-Oavay Xfer(QC): 5 Toilet Transfer (QC): 5 Car Transfer (QC): 4 Does the Patient Walk: Yes Walk 10 feet (QC): 4 Walk 50ft with 2 Turns (QC): 4 Walk 150 ft (QC): 4 Walking 10ft on Uneven Surface: 4 1 Step (curb) (QC): 4 4 Steps (QC): 4 12 Steps (QC): 88 Picking up an Object (QC): 4 Wheel 50 feet with 2 turns (QC: 9 Wheel 150 feet: 9 PT Plan Treatment/Plan Treatment Plan: Continue Plan of Care Treatment Plan: Bed Mobility, Education, Functional Activity Karley, Functional Strength, Group Therapy, Gait, Safety, Therapeutic Exercise, Transfers Treatment Duration: May 11, 2021 Frequency: At least 5 of 7 days/Wk (IRF) Estimated Hrs Per Day: 1.5 hours per day Patient and/or Family Agrees t: Yes Safety Risks/Education Patient Education: Transfer Techniques, Correct Positioning Time/GCodes Time In: 1330 Time Out: 1400 Total Billed Treatment Time: 30 Total Billed Treatment 1,FA10m,EX20m SUMAYA FLORES TANNING SOLUTION MAKER Apr 30, 2021 14:37
[2021-04-30] MEDS: warFARin 5 MG (COUMADIN) TAB PO SCH (18:46)
[2021-04-30 20:00] VITALS: BP 104/56
[2021-05-01] MEDS: MULTIVIT W/MINERALS TAB (THERAGRAN M) PO SCH (06:38)
[2021-05-01 06:55] LABS: PROTHROMBIN TIME PATIENT 22.9 SEC (12.2-14.7)
[2021-05-01 07:51] VITALS: BP 118/58
[2021-05-01] MEDS: ALLOPURINOL 100 MG (ZYLOPRIM) TAB PO SCH (09:17)
[2021-05-01] MEDS: polyethylene glycoL POWDER 17 GM (MIRALAX) PACK PO SCH ×2 (09:17→21:43)
[2021-05-01] MEDS: PIOGLITAZONE 30MG (ACTOS) TAB PO SCH (09:17)
[2021-05-01] MEDS: DOCUSATE SODIUM 100 MG (COLACE) CAP PO SCH ×2 (09:17→21:43)
[2021-05-01] MEDS: SENNA W/DOCUSATE (SENOKOT S) TABLET PO SCH ×2 (09:17→21:43)
[2021-05-01] MEDS: DICLOFENAC 1% GEL 100 GM (VOLTAREN) TUBE TOP SCH ×4 (09:18→21:27)
[2021-05-01] MEDS: EUCERIN CREAM 4 OZ JAR (HYDROCERIN) TP SCH ×2 (09:19→21:32)
[2021-05-01] MEDS ORDERED: FUROSEMIDE 20 MG (LASIX) TAB ONE (10:12)
[2021-05-01] MEDS ORDERED: FUROSEMIDE 20 MG (LASIX) TAB PO ONE (10:15)
--- NOTE | 2021-05-01 10:18 | Cardiology Progress Note ---
Subjective Date Seen by Provider: May 01, 2021 Time Seen by Provider: 10:16 Subjective/Events-last exam Patient was seen at bedside, sitting comfortably, having more shortness of breath than her baseline. Complaining of fatigue Review of Systems General: No Chills, No Night Sweats; Fatigue, Malaise; No Appetite, No Other HEENT: No Head Aches, No Visual Changes, No Eye Pain, No Ear Pain, No Dysphasia, No Sinus Congestion, No Post Nasal Drip, No Sore Throat, No Other Pulmonary: Dyspnea; No Cough, No Pleuritic Chest Pain, No Other Cardiovascular: No: Chest Pain, Palpitations, Orthopnea, Paroxysmal Noc. Dyspnea, Edema, Lt Headedness, Other Objective-Cardiology Exam Last Set of Vital Signs Vital Signs 04/30/21 05/01/21 21:30 07:51 Temp 36.7 Pulse 100 Resp 18 B/P (MAP) 118/58 (78) Pulse Ox 91 O2 Delivery Room Air O2 Flow Rate 0.50 I&O Intake and Output 05/01/21 00:00 Intake Total 1100 ml Output Total 740 ml Balance 360 ml Intake Oral 1100 ml Output Urine Total 740 ml # Voids 3 # Bowel Movements 2 General: Alert, Oriented X3, Cooperative HEENT: Atraumatic, PERRLA Neck: Supple, No JVD, No Thyromegaly Lungs: Clear to Auscultation, Normal Air Movement Heart: Normal S1, Normal S2, Other (irregularly irregular) Abdomen: Normal Bowel Sounds, Soft Skin: No Rashes, No Significant Lesion Neuro: Normal Speech Psych/Mental Status: Mental Status NL, Mood NL A/P-Cardiology Admission Diagnosis Persistent atrial fibrillation Tachycardia Perforated ulcer Pleural effusion Assessment/Plan Persistent atrial fibrillation, on rate control medication, Cardizem increased to 360mg in addition to her Toprol XL. Monitor blood pressure. Maintained on coumadin, continue to monitor Shortness of breath, worsening today, has baseline normal LV function, was on Lasix as an outpatient, will give her a dose of Lasix and I will repeat chest x- ray. Patient had previous pleural effusion noted on her x-ray Echocardiogram showed normal LV size, EF 55%, left atrial dilation, moderate to severe tricuspid regurgitation, moderate mitral regurgitation, pulmonary hypertension with PA pressure 50 mmHg Perforated ulcer, status post repair, had complication post surgery with continuous leak. Currently better. Continue to monitor Hypertension, continue current medication and monitor blood pressure Generalized weakness, receiving physical therapy. TC TUCKER MD May 01, 2021 10:18
--- NOTE | 2021-05-01 11:51 | Diagnostic Imaging Report ---
INDICATION: Dyspnea PA and lateral views of the chest obtained with comparison made to study of 04/20/2021. There is mild cardiomegaly. Pulmonary vascularity is within normal limits. There is blunting of costophrenic sulci bilaterally. No pneumothorax is noted. IMPRESSION: Mild to moderate bilateral pleural effusion without other significant acute abnormality or adverse change. Dictated by: Dictated on workstation # [id number]
--- NOTE | 2021-05-01 12:00 | PM&R Progress Note ---
Subjective HPI/CC On Admission Date Seen by Provider: May 01, 2021 Time Seen by Provider: 12:10 Subjective/Events-last exam 05/01/21: Patient doing well Cardiology started Lasix due to weight gain and pulmonary edema NHP Monday BM++ 04/30/2021: Patient doing okay Blood pressure meds and warfarin altered by Dr. Marshall Bowels are moving Convinced she is going home I am reading the social work note that states otherwise I told her that we are looking at a longterm but she said not at home or any good so she is not going? 04/29/21: Patient doing well Working on walking to bathroom Weakness noted Discharge plan for next week 04/28/21: Pt doing pretty well Wounds look good Heladio has addressed the wound with wound care dressings Bowels are moving INR still sub-therapeutic Insisting on going home but may be better off in I assisted living but we will do family education soon 04/27/2021: Patient doing well Bowels moving Walking well Appears to good Dr. Marshall will increase Cardizem 04/26/21: Pt doing well INR 1.8 Hb 9.5 No major issues Checked meds and lab 04/25/2021: Patient had a large bowel movement yesterday Doing very well Stamina is low but working hard Check meds and labs 04/24/21: Patient doing well Guillermo wraps to lower extremities Diclofenac gel will be used INR 1.6 Bowels are moving well 04/23/2021: Pt doing really well Had a large BM last night Diclofenac gel will be ordered Tylenol will be ordered for the pain Has some hemorrhoids 04/22/2021: Pt doing really well Bowels are moving Checked meds and labs Oxygen at 0.5 liters 04/21/2021: Pt doing a lot better Using kcf-ow-plkyr Walks ten feet with a walker Oxygen at half a liter Feet are really cracked - will place lotion Hgb 9.3 INR 1.5 Heart rate in the 90s since Cardizem was increased Slum score is 29/30 Review of Systems General: Fatigue, Malaise Objective Exam Vital Signs Vital Signs Date Time Temp Pulse Resp B/P (MAP) Pulse Ox O2 Delivery O2 Flow Rate FiO2 05/01/21 07:51 36.7 100 18 118/58 (78) 91 Room Air 04/30/21 21:30 0.50 Capillary Refill : General Appearance: No Apparent Distress, WD/WN, Chronically ill HEENT: PERRL/EOMI, Normal ENT Inspection, Pharynx Normal Neck: Full Range of Motion, Normal Inspection, Non Tender, Supple, Carotid Bruit Respiratory: Chest Non Tender, Lungs Clear, No Accessory Muscle Use, No Respiratory Distress, Decreased Breath Sounds Cardiovascular: No Gallop, No JVD, No Murmur, Normal Peripheral Pulses, Irregularly Irregular, Tachycardia Gastrointestinal: Normal Bowel Sounds, No Organomegaly, No Pulsatile Mass, Soft, Tenderness Back: Normal Inspection, No CVA Tenderness, No Vertebral Tenderness Extremity: Normal Capillary Refill, Normal Inspection, Normal Range of Motion, Non Tender, No Calf Tenderness, Pedal Edema Neurologic/Psychiatric: Alert, Oriented x3, No Motor/Sensory Deficits, Normal Mood/Affect, Abnormal Gait (Unable to ambulate), Motor Weakness (Generalized) Skin: Normal Color, Warm/Dry Lymphatic: No Adenopathy Results/Procedures Lab Patient resulted labs reviewed. FIM Transfers Therapy Code Descriptions/Definitions Functional Drifting Measure: 0=Not Assessed/NA 4=Minimal Assistance 1=Total Assistance 5=Supervision or Setup 2=Maximal Assistance 6=Modified Drifting 3=Moderate Assistance 7=Complete IndependenceSCALE: Activities may be completed with or without assistive devices. 2-Samrcgwlif-bzhhwjo completes the activity by him/herself with no assistance from a helper. 5-Set-up or Clean-up Assistance-helper sets up or cleans up; patient completes activity. [place] assists only prior to or following the activity. 4-Supervision or Touching Assistance-helper provides verbal cues and/or touching/steadying and/or contact guard assistance as patient completes activity. Assistance may be provided throughout the activity or intermittently. 3-Partial/Moderate Assistance-helper does LESS THAN HALF the effort. [place] lifts, holds or supports trunk or limbs, but provides less than half the effort. 2-Substantial/Maximal Assistance-helper does MORE THAN HALF the effort. [place] lifts or holds trunk or limbs and provides more than half the effort. 2-Xacdeppgw-qcprjg does ALL the effort. Patient does none of the effort to complete the activity. Or, the assistance of 2 or more helpers is required for the patient to complete the activity. If activity was not attempted, code reason: 7-Patient Refused. 9-Not Applicable-not attempted and the patient did not perform the activity before the current illness, exacerbation or injury. 10-Not Attempted due to Environmental Limitations-(lack of equipment, weather restraints, etc.). 88-Not Attempted due to Medical Conditions or Safety Concerns. Roll Left to Right (QC): 6 Sit to Lying (QC): 5 Sit to Stand (QC): 4 Chair/Yha-wp-Hihws Xfer(QC): 4 Car Transfer (QC): 88 Gait Training Does the Patient Walk?: Yes Distance: 20'x2 Walk 10 feet (QC): 4 Walk 50 ft with 2 Turns(QC): 88 Walk 150 ft (QC): 88 Walking 10ft/uneven surface-QC: 88 Gait Persons Needed: 1 Gait Assistive Device: FWW Wheelchair Training Does the Pt Use a Wheelchair?: Yes Distance: 100' Wheel 50 ft with 2 turns (QC): 5 Wheel 150 ft (QC): 4 Type of Wheelchair: Manual Stair Training 1 Step (curb) (QC): 88 4 Steps (QC): 88 12 Steps (QC): 88 Balance Picking up an Object (QC): 88 ADL-Treatment Eating (QC): 6 (Per pt report.) Oral Hygiene (QC): 6 (Per clincial judgment, pt independent seated at sink.) Shower/Bathe Self (QC): 5 (set up assist. Pt able to wash/dry all parts seated on SC.) Upper Body Dressing (QC): 5 (set up with sample puller shirt.) Lower Body Dressing (QC): 3 (Min A with pant hike. Pt threaded brief using pk christa) On/Off Footwear (QC): 3 (Min A. Assist with guillermo wraps, min A with L gripper sock using sock aide. Pt used sock aide, increased time.) Toileting Hygiene (QC): 3 (Min A with pant hike.) Assessment/Plan Assessment and Plan Assess & Plan/Chief Complaint Assessment: Critical illness myopathy Chronic atrial fibrillation not rate controlled consulting Dr. Marshall Urinary retention now resolved ADAIR drain in place consulting Dr. Gamez Subtherapeutic INR 1.5 Coumadin anticoagulation Plan: Supportive care Rehab protocol Consult Dr. Gamez Consult Dr. Marshall 04/21/2021: Supportive care Appreciate cardiology Appreciate general surgery 04/22/2021: Wean oxygen Supportive care 04/23/2021: Supportive care Wean oxygen 04/24/2021: Diclofenac gel Monitor INR Wrap legs 04/25/2021: Supportive care Wrap legs 04/26/21: Monitor INR Supportive care 04/27/2021: Supportive care Increase meds for rate control of A. fib 04/28/21: Monitor closely DC next week 04/29/2021: Supportive care Monitor INR 04/30/2021: custodial on Monday05/01/21: Advanced age NHP (1) Gastric ulcer with perforation (2) Atrial fibrillation (3) Warfarin anticoagulation (4) Urinary retention (5) Diabetes (6) Myopathy JARON BRANNON DO May 01, 2021 12:00
--- NOTE | 2021-05-01 12:55 | Physical Therapy Daily Note ---
PT Daily Note-Current Subjective Pt notes that she is tired today. Transfers SCALE: Activities may be completed with or without assistive devices. 2-Snktqvpkou-skhunwc completes the activity by him/herself with no assistance from a helper. 5-Set-up or Clean-up Assistance-helper sets up or cleans up; patient completes activity. [place] assists only prior to or following the activity. 4-Supervision or Touching Assistance-helper provides verbal cues and/or touching/steadying and/or contact guard assistance as patient completes activity. Assistance may be provided throughout the activity or intermittently. 3-Partial/Moderate Assistance-helper does LESS THAN HALF the effort. [place] l ifts, holds or supports trunk or limbs, but provides less than half the effort. 2-Substantial/Maximal Assistance-helper does MORE THAN HALF the effort. [place] lifts or holds trunk or limbs and provides more than half the effort. 2-Pfdcchjdk-ihxwds does ALL the effort. Patient does none of the effort to complete the activity. Or, the assistance of 2 or more helpers is required for t he patient to complete the activity. If activity was not attempted, code reason: 7-Patient Refused. 9-Not Applicable-not attempted and the patient did not perform the activity before the current illness, exacerbation or injury. 10-Not Attempted due to Environmental Limitations-(lack of equipment, weather restraints, etc.). 88-Not Attempted due to Medical Conditions or Safety Concerns. Education on sit to stand sequence and proper use of hands. Transitioned sit to stand with CGA. Gait Training Gait Persons Needed: 1 Gait Assistive Device: FWW Gait training. Ambulate 25ft x 2 FWW CGA with seated rest between trials. Instruction on walker management and pacing. Assessment Current Status: Good Progress Pt showing improved sit to stand and ambulation stability. She will benefit from continued therapy. PT Short Term Goals Short Term Goals Time Frame: Apr 27, 2021 Roll Left & Right: 6 Sit to lyin Lying to sitting on side of be: 4 Sit to stand: 3 Chair/zms-ei-jrzhv transfer: 4 Walk 10 feet: 4 Walk 50 feet with two turns: 3 PT Skilled Nursing Goals [employer] Goals PT Skilled Nursing Goals Time Frame: May 11, 2021 Roll Left & Right (QC): 6 Sit to Lying (QC): 4 Lying-Sitting on Side/Bed(QC): 5 Sit to Stand (QC): 4 Chair/Jxq-kv-Iibcj Xfer(QC): 5 Toilet Transfer (QC): 5 Car Transfer (QC): 4 Does the Patient Walk: Yes Walk 10 feet (QC): 4 Walk 50ft with 2 Turns (QC): 4 Walk 150 ft (QC): 4 Walking 10ft on Uneven Surface: 4 1 Step (curb) (QC): 4 4 Steps (QC): 4 12 Steps (QC): 88 Picking up an Object (QC): 4 Wheel 50 feet with 2 turns (QC: 9 Wheel 150 feet: 9 PT Plan Treatment/Plan Treatment Plan: Continue Plan of Care Treatment Plan: Bed Mobility, Education, Functional Activity Karley, Functional Strength, Group Therapy, Gait, Safety, Therapeutic Exercise, Transfers Treatment Duration: May 11, 2021 Frequency: At least 5 of 7 days/Wk (IRF) Estimated Hrs Per Day: 1.5 hours per day Patient and/or Family Agrees t: Yes Time/GCodes Time In: 1010 Time Out: 1025 Total Billed Treatment Time: 15 Total Billed Treatment visit, gait 15 min THEODORA MILLER PT May 01, 2021 12:55
[2021-05-01] MEDS: warFARin 5 MG (COUMADIN) TAB PO SCH (18:25)
[2021-05-01 20:00] VITALS: BP 111/60
[2021-05-02 06:11] LABS: HEMATOCRIT 33 % (35-52); HEMOGLOBIN 9.9 g/dL (11.5-16.0); MEAN CORPUSCULAR HEMOGLOBIN 22 pg (25-34); MEAN CORPUSCULAR HGB CONC 30 g/dL (32-36); MEAN CORPUSCULAR VOLUME 74 fL (80-99); MEAN PLATELET VOLUME 9.9 fL (9.0-12.2); PLATELET COUNT 385 10^3/uL (130-400); WHITE BLOOD COUNT 5.2 10^3/uL (4.3-11.0)
--- NOTE | 2021-05-02 06:15 | PM&R Progress Note ---
Subjective HPI/CC On Admission Date Seen by Provider: May 02, 2021 Time Seen by Provider: 11:30 Subjective/Events-last exam 05/02/21: Patient sleeping O2 maintained but now at 2L/min Diuresis Labs due tomorrow 05/01/21: Patient doing well Cardiology started Lasix due to weight gain and pulmonary edema NHP Monday BM++ 04/30/2021: Patient doing okay Blood pressure meds and warfarin altered by Dr. Marshall Bowels are moving Convinced she is going home I am reading the social work note that states otherwise I told her that we are looking at a fci but she said not at home or any good so she is not going? 04/29/21: Patient doing well Working on walking to bathroom Weakness noted Discharge plan for next week 04/28/21: Pt doing pretty well Wounds look good Heladio has addressed the wound with wound care dressings Bowels are moving INR still sub-therapeutic Insisting on going home but may be better off in I assisted living but we will do family education soon 04/27/2021: Patient doing well Bowels moving Walking well Appears to good Dr. Marshall will increase Cardizem 04/26/21: Pt doing well INR 1.8 Hb 9.5 No major issues Checked meds and lab 04/25/2021: Patient had a large bowel movement yesterday Doing very well Stamina is low but working hard Check meds and labs 04/24/21: Patient doing well Guillermo wraps to lower extremities Diclofenac gel will be used INR 1.6 Bowels are moving well 04/23/2021: Pt doing really well Had a large BM last night Diclofenac gel will be ordered Tylenol will be ordered for the pain Has some hemorrhoids 04/22/2021: Pt doing really well Bowels are moving Checked meds and labs Oxygen at 0.5 liters 04/21/2021: Pt doing a lot better Using dbf-vf-fbogz Walks ten feet with a walker Oxygen at half a liter Feet are really cracked - will place lotion Hgb 9.3 INR 1.5 Heart rate in the 90s since Cardizem was increased Slum score is 29/30 Review of Systems General: Fatigue, Malaise Objective Exam Vital Signs Vital Signs Date Time Temp Pulse Resp B/P (MAP) Pulse Ox O2 Delivery O2 Flow Rate FiO2 05/02/21 20:52 95 Nasal Cannula 2.00 05/02/21 19:53 36.5 90 20 115/68 (84) Capillary Refill : General Appearance: No Apparent Distress, WD/WN, Chronically ill HEENT: PERRL/EOMI, Normal ENT Inspection, Pharynx Normal Neck: Full Range of Motion, Normal Inspection, Non Tender, Supple, Carotid Bruit Respiratory: Chest Non Tender, Lungs Clear, No Accessory Muscle Use, No Respiratory Distress, Decreased Breath Sounds Cardiovascular: No Gallop, No JVD, No Murmur, Normal Peripheral Pulses, Irregularly Irregular, Tachycardia Gastrointestinal: Normal Bowel Sounds, No Organomegaly, No Pulsatile Mass, Soft, Tenderness Back: Normal Inspection, No CVA Tenderness, No Vertebral Tenderness Extremity: Normal Capillary Refill, Normal Inspection, Normal Range of Motion, Non Tender, No Calf Tenderness, Pedal Edema Neurologic/Psychiatric: Alert, Oriented x3, No Motor/Sensory Deficits, Normal Mood/Affect, Abnormal Gait (Unable to ambulate), Motor Weakness (Generalized) Skin: Normal Color, Warm/Dry Lymphatic: No Adenopathy Results/Procedures Lab Laboratory Tests 05/02/21 06:05 Patient resulted labs reviewed. FIM Transfers Therapy Code Descriptions/Definitions Functional [place] Measure: 0=Not Assessed/NA 4=Minimal Assistance 1=Total Assistance 5=Supervision or Setup 2=Maximal Assistance 6=Modified [place] 3=Moderate Assistance 7=Complete IndependenceSCALE: Activities may be completed with or without assistive devices. 2-Cahokdrfyl-thpdqzl completes the activity by him/herself with no assistance from a helper. 5-Set-up or Clean-up Assistance-helper sets up or cleans up; patient completes activity. [place] assists only prior to or following the activity. 4-Supervision or Touching Assistance-helper provides verbal cues and/or touching/steadying and/or contact guard assistance as patient completes activ ity. Assistance may be provided throughout the activity or intermittently. 3-Partial/Moderate Assistance-helper does LESS THAN HALF the effort. [place] lifts, holds or supports trunk or limbs, but provides less than half the effort. 2-Substantial/Maximal Assistance-helper does MORE THAN HALF the effort. [place] lifts or holds trunk or limbs and provides more than half the effort. 2-Gjakucqnr-ihfnuu does ALL the effort. Patient does none of the effort to complete the activity. Or, the assistance of 2 or more helpers is required for the patient to complete the activity. If activity was not attempted, code reason: 7-Patient Refused. 9-Not Applicable-not attempted and the patient did not perform the activity before the current illness, exacerbation or injury. 10-Not Attempted due to Environmental Limitations-(lack of equipment, weather restraints, etc.). 88-Not Attempted due to Medical Conditions or Safety Concerns. Roll Left to Right (QC): 6 Sit to Lying (QC): 5 Sit to Stand (QC): 4 Chair/Gkc-io-Pvazn Xfer(QC): 4 Car Transfer (QC): 88 Gait Training Does the Patient Walk?: Yes Distance: 20'x2 Walk 10 feet (QC): 4 Walk 50 ft with 2 Turns(QC): 88 Walk 150 ft (QC): 88 Walking 10ft/uneven surface-QC: 88 Gait Persons Needed: 1 Gait Assistive Device: FWW Wheelchair Training Does the Pt Use a Wheelchair?: Yes Distance: 100' Wheel 50 ft with 2 turns (QC): 5 Wheel 150 ft (QC): 4 Type of Wheelchair: Manual Stair Training 1 Step (curb) (QC): 88 4 Steps (QC): 88 12 Steps (QC): 88 Balance Picking up an Object (QC): 88 ADL-Treatment Eating (QC): 6 (Per pt report.) Oral Hygiene (QC): 6 (Per clincial judgment, pt independent seated at sink.) Shower/Bathe Self (QC): 5 (set up assist. Pt able to wash/dry all parts seated on SC.) Upper Body Dressing (QC): 5 (set up with pulley mortiser operator shirt.) Lower Body Dressing (QC): 3 (Min A with pant hike. Pt threaded brief using ophthalmic technician apprentice) On/Off Footwear (QC): 3 (Min A. Assist with guillermo wraps, min A with L gripper sock using sock aide. Pt used sock aide, increased time.) Toileting Hygiene (QC): 3 (Min A with pant hike.) Assessment/Plan Assessment and Plan Assess & Plan/Chief Complaint Assessment: Critical illness myopathy Chronic atrial fibrillation not rate controlled consulting Dr. Marshall Urinary retention now resolved ADAIR drain in place consulting Dr. Gamez Subtherapeutic INR 1.5 Coumadin anticoagulation Plan: Supportive care Rehab protocol Consult Dr. Gamez Consult Dr. Marshall 04/21/2021: Supportive care Appreciate cardiology Appreciate general surgery 04/22/2021: Wean oxygen Supportive care 04/23/2021: Supportive care Wean oxygen 04/24/2021: Diclofenac gel Monitor INR Wrap legs 04/25/2021: Supportive care Wrap legs 04/26/21: Monitor INR Supportive care 04/27/2021: Supportive care Increase meds for rate control of A. fib 04/28/21: Monitor closely DC next week 04/29/2021: Supportive care Monitor INR 04/30/2021: senior care on Monday05/01/21: Advanced age NHP 05/02/21: Cardiology appreciated Diuresis (1) Gastric ulcer with perforation (2) Atrial fibrillation (3) Warfarin anticoagulation (4) Urinary retention (5) Diabetes (6) Myopathy JARON BRANNON DO May 02, 2021 06:15
[2021-05-02 06:20] LABS: POTASSIUM 4.8 MMOL/L (3.6-5.0)
[2021-05-02 06:21] LABS: CALCIUM 9.1 MG/DL (8.5-10.1)
[2021-05-02] MEDS: MULTIVIT W/MINERALS TAB (THERAGRAN M) PO SCH (06:23)
[2021-05-02 06:25] LABS: CREATININE SERUM 1.18 MG/DL (0.60-1.30)
[2021-05-02 06:28] LABS: MAGNESIUM 2.6 MG/DL (1.6-2.4)
[2021-05-02 08:30] VITALS: BP 118/67
[2021-05-02] MEDS: ALLOPURINOL 100 MG (ZYLOPRIM) TAB PO SCH (09:26)
[2021-05-02] MEDS: PIOGLITAZONE 30MG (ACTOS) TAB PO SCH (09:26)
[2021-05-02] MEDS: EUCERIN CREAM 4 OZ JAR (HYDROCERIN) TP SCH ×2 (09:27→20:52)
[2021-05-02] MEDS: polyethylene glycoL POWDER 17 GM (MIRALAX) PACK PO SCH ×2 (12:52→20:58)
[2021-05-02] MEDS: DOCUSATE SODIUM 100 MG (COLACE) CAP PO SCH ×2 (12:52→20:50)
[2021-05-02] MEDS: SENNA W/DOCUSATE (SENOKOT S) TABLET PO SCH ×2 (12:52→20:58)
[2021-05-02] MEDS: DICLOFENAC 1% GEL 100 GM (VOLTAREN) TUBE TOP SCH ×4 (12:53→20:50)
[2021-05-02] MEDS: warFARin 5 MG (COUMADIN) TAB PO SCH (17:20)
[2021-05-02] MEDS ORDERED: TORSEMIDE 20 MG (DEMADEX) TAB ONE (18:46)
[2021-05-02] MEDS: TORSEMIDE 20 MG (DEMADEX) TAB PO SCH (18:51)
[2021-05-02 19:53] VITALS: BP 115/68
[2021-05-03 05:53] LABS: EOSINOPHILS # (AUTO) 0.4 10^3/uL (0.0-0.3); HEMATOCRIT 32 % (35-52); MEAN CORPUSCULAR VOLUME 73 fL (80-99); MONOCYTES # (AUTO) 0.5 10^3/uL (0.0-1.0)
[2021-05-03 05:55] LABS: BASOPHILS # (AUTO) 0.1 10^3/uL (0.0-0.1); BASOPHILS % (AUTO) 1 % (0-10); EOSINOPHILS % (AUTO) 9 % (0-10); HEMOGLOBIN 9.8 g/dL (11.5-16.0); LYMPHOCYTES # (AUTO) 0.5 10^3/uL (1.0-4.0); LYMPHOCYTES % (AUTO) 11 % (12-44); MEAN CORPUSCULAR HEMOGLOBIN 22 pg (25-34); MEAN CORPUSCULAR HGB CONC 30 g/dL (32-36); MEAN PLATELET VOLUME 10.3 fL (9.0-12.2); MONOCYTES % (AUTO) 10 % (0-12); NEUTROPHILS # (AUTO) 3.4 10^3/uL (1.8-7.8); NEUTROPHILS % (AUTO) 70 % (42-75); PLATELET COUNT 328 10^3/uL (130-400); WHITE BLOOD COUNT 4.9 10^3/uL (4.3-11.0)
[2021-05-03 06:06] LABS: ALBUMIN 3.2 GM/DL (3.2-4.5)
--- NOTE | 2021-05-03 06:06 | PM&R Progress Note ---
Subjective HPI/CC On Admission Date Seen by Provider: May 03, 2021 Time Seen by Provider: 11:15 Subjective/Events-last exam 05/03/2021: Pt sleeping and she does sleep quite a bit Going to the [facility] tomorrow RN has no concerns 05/02/21: Patient sleeping O2 maintained but now at 2L/min Diuresis Labs due tomorrow 05/01/21: Patient doing well Cardiology started Lasix due to weight gain and pulmonary edema NHP Monday BM++ 04/30/2021: Patient doing okay Blood pressure meds and warfarin altered by Dr. Marshall Bowels are moving Convinced she is going home I am reading the social work note that states otherwise I told her that we are looking at a [facility] but she said not at home or any good so she is not going? 04/29/21: Patient doing well Working on walking to bathroom Weakness noted Discharge plan for next week 04/28/21: Pt doing pretty well Wounds look good Heladio has addressed the wound with wound care dressings Bowels are moving INR still sub-therapeutic Insisting on going home but may be better off in I assisted living but we will do family education soon 04/27/2021: Patient doing well Bowels moving Walking well Appears to good Dr. Marshall will increase Cardizem 04/26/21: Pt doing well INR 1.8 Hb 9.5 No major issues Checked meds and lab 04/25/2021: Patient had a large bowel movement yesterday Doing very well Stamina is low but working hard Check meds and labs 04/24/21: Patient doing well Guillermo wraps to lower extremities Diclofenac gel will be used INR 1.6 Bowels are moving well 04/23/2021: Pt doing really well Had a large BM last night Diclofenac gel will be ordered Tylenol will be ordered for the pain Has some hemorrhoids 04/22/2021: Pt doing really well Bowels are moving Checked meds and labs Oxygen at 0.5 liters 04/21/2021: Pt doing a lot better Using vmy-bx-vawcy Walks ten feet with a walker Oxygen at half a liter Feet are really cracked - will place lotion Hgb 9.3 INR 1.5 Heart rate in the 90s since Cardizem was increased Slum score is 29/30 Review of Systems General: Fatigue, Malaise Objective Exam Vital Signs Vital Signs Date Time Temp Pulse Resp B/P (MAP) Pulse Ox O2 Delivery O2 Flow Rate FiO2 05/03/21 21:00 Nasal Cannula 1.00 05/03/21 19:42 36.0 79 16 106/93 (97) 97 Capillary Refill : General Appearance: No Apparent Distress, WD/WN, Chronically ill HEENT: PERRL/EOMI, Normal ENT Inspection, Pharynx Normal Neck: Full Range of Motion, Normal Inspection, Non Tender, Supple, Carotid Bruit Respiratory: Chest Non Tender, Lungs Clear, No Accessory Muscle Use, No Respiratory Distress, Decreased Breath Sounds Cardiovascular: No Gallop, No JVD, No Murmur, Normal Peripheral Pulses, Irregularly Irregular, Tachycardia Gastrointestinal: Normal Bowel Sounds, No Organomegaly, No Pulsatile Mass, Soft, Tenderness Back: Normal Inspection, No CVA Tenderness, No Vertebral Tenderness Extremity: Normal Capillary Refill, Normal Inspection, Normal Range of Motion, Non Tender, No Calf Tenderness, Pedal Edema Neurologic/Psychiatric: Alert, Oriented x3, No Motor/Sensory Deficits, Normal Mood/Affect, Abnormal Gait (Unable to ambulate), Motor Weakness (Generalized) Skin: Normal Color, Warm/Dry Lymphatic: No Adenopathy Results/Procedures Lab Laboratory Tests 05/03/21 05:48 Patient resulted labs reviewed. FIM Transfers Therapy Code Descriptions/Definitions Functional [place] Measure: 0=Not Assessed/NA 4=Minimal Assistance 1=Total Assistance 5=Supervision or Setup 2=Maximal Assistance 6=Modified [place] 3=Moderate Assistance 7=Complete IndependenceSCALE: Activities may be completed with or without assistive devices. 4-Zkciwideut-vgwyfih completes the activity by him/herself with no assistance f rom a helper. 5-Set-up or Clean-up Assistance-helper sets up or cleans up; patient completes activity. [place] assists only prior to or following the activity. 4-Supervision or Touching Assistance-helper provides verbal cues and/or touching/steadying and/or contact guard assistance as patient completes activity. Assistance may be provided throughout the activity or intermittently. 3-Partial/Moderate Assistance-helper does LESS THAN HALF the effort. [place] lifts, holds or supports trunk or limbs, but provides less than half the effort. 2-Substantial/Maximal Assistance-helper does MORE THAN HALF the effort. [place] lifts or holds trunk or limbs and provides more than half the effort. 2-Pegqoydjw-qbvzbr does ALL the effort. Patient does none of the effort to complete the activity. Or, the assistance of 2 or more helpers is required for the patient to complete the activity. If activity was not attempted, code reason: 7-Patient Refused. 9-Not Applicable-not attempted and the patient did not perform the activity before the current illness, exacerbation or injury. 10-Not Attempted due to Environmental Limitations-(lack of equipment, weather restraints, etc.). 88-Not Attempted due to Medical Conditions or Safety Concerns. Roll Left to Right (QC): 6 Sit to Lying (QC): 5 Sit to Stand (QC): 4 Chair/Xyt-wd-Lisfo Xfer(QC): 4 Car Transfer (QC): 88 Gait Training Does the Patient Walk?: Yes Distance: 20'x2 Walk 10 feet (QC): 4 Walk 50 ft with 2 Turns(QC): 88 Walk 150 ft (QC): 88 Walking 10ft/uneven surface-QC: 88 Gait Persons Needed: 1 Gait Assistive Device: FWW Wheelchair Training Does the Pt Use a Wheelchair?: Yes Distance: 100' Wheel 50 ft with 2 turns (QC): 5 Wheel 150 ft (QC): 4 Type of Wheelchair: Manual Stair Training 1 Step (curb) (QC): 88 4 Steps (QC): 88 12 Steps (QC): 88 Balance Picking up an Object (QC): 88 ADL-Treatment Eating (QC): 6 (Per pt report.) Oral Hygiene (QC): 6 (Per clincial judgment, pt independent seated at sink.) Shower/Bathe Self (QC): 5 (set up assist. Pt able to wash/dry all parts seated on SC.) Upper Body Dressing (QC): 5 (set up with dry chain puller shirt.) Lower Body Dressing (QC): 3 (Min A with pant hike. Pt threaded brief using coil strapper) On/Off Footwear (QC): 3 (Min A. Assist with guillermo wraps, min A with L gripper sock using sock aide. Pt used sock aide, increased time.) Toileting Hygiene (QC): 3 (Min A with pant hike.) Assessment/Plan Assessment and Plan Assess & Plan/Chief Complaint Assessment: Critical illness myopathy Chronic atrial fibrillation not rate controlled consulting Dr. Marshall Urinary retention now resolved ADAIR drain in place consulting Dr. Gamez Subtherapeutic INR 1.5 Coumadin anticoagulation Plan: Supportive care Rehab protocol Consult Dr. Gamez Consult Dr. Marshall 04/21/2021: Supportive care Appreciate cardiology Appreciate general surgery 04/22/2021: Wean oxygen Supportive care 04/23/2021: Supportive care Wean oxygen 04/24/2021: Diclofenac gel Monitor INR Wrap legs 04/25/2021: Supportive care Wrap legs 04/26/21: Monitor INR Supportive care 04/27/2021: Supportive care Increase meds for rate control of A. fib 04/28/21: Monitor closely DC next week 04/29/2021: Supportive care Monitor INR 04/30/2021: [facility] on Monday05/01/21: Advanced age NHP 05/02/21: Cardiology appreciated Diuresis 05/03/2021: DC to nursing tomorrow (1) Gastric ulcer with perforation (2) Atrial fibrillation (3) Warfarin anticoagulation (4) Urinary retention (5) Diabetes (6) Myopathy JARON BRANNON DO May 03, 2021 06:06
[2021-05-03 06:07] LABS: INR 2.6 (0.8-1.4); PROTHROMBIN TIME PATIENT 28.5 SEC (12.2-14.7)
[2021-05-03 06:08] LABS: CALCIUM 9.3 MG/DL (8.5-10.1)
[2021-05-03 06:11] LABS: BILIRUBIN,TOTAL 0.6 MG/DL (0.1-1.0)
[2021-05-03 06:13] LABS: CREATININE SERUM 1.19 MG/DL (0.60-1.30)
[2021-05-03] MEDS: MULTIVIT W/MINERALS TAB (THERAGRAN M) PO SCH (06:15)
[2021-05-03 07:28] VITALS: BP 111/63
--- NOTE | 2021-05-03 08:23 | Cardiology Progress Note ---
Subjective Date Seen by Provider: May 03, 2021 Time Seen by Provider: 08:21 Subjective/Events-last exam Patient is tired, complaining of frequent urination after taking torsemide. Review of Systems General: No Chills, No Night Sweats; Fatigue, Malaise; No Appetite, No Other HEENT: No Head Aches, No Visual Changes, No Eye Pain, No Ear Pain, No Dysphasia, No Sinus Congestion, No Post Nasal Drip, No Sore Throat, No Other Pulmonary: Dyspnea; No Cough, No Pleuritic Chest Pain, No Other Cardiovascular: Edema; No: Chest Pain, Palpitations, Orthopnea, Paroxysmal Noc. Dyspnea, Lt Headedness, Other Objective-Cardiology Exam Last Set of Vital Signs Vital Signs 05/03/21 07:28 Temp 36.4 Pulse 102 Resp 20 B/P (MAP) 111/63 (79) Pulse Ox 94 O2 Delivery Nasal Cannula O2 Flow Rate 1.00 I&O Intake and Output 05/03/21 00:00 Intake Total 1417 ml Output Total 1120 ml Balance 297 ml Intake Oral 1417 ml Output Urine Total 1120 ml General: Alert, Oriented X3, Cooperative HEENT: Atraumatic, PERRLA Neck: Supple, No JVD, No Thyromegaly Lungs: Clear to Auscultation, Normal Air Movement Heart: Normal S1, Normal S2, Other (irregularly irregular) Abdomen: Normal Bowel Sounds, Soft Skin: No Rashes, No Significant Lesion Neuro: Normal Speech Psych/Mental Status: Mental Status NL, Mood NL Results Lab Laboratory Tests 05/03/21 05:48 A/P-Cardiology Admission Diagnosis Persistent atrial fibrillation Tachycardia Perforated ulcer Pleural effusion Assessment/Plan Persistent atrial fibrillation, on rate control medication, Cardizem increased to 360mg in addition to her Toprol XL. Monitor blood pressure. Maintained on coumadin, continue to monitor Shortness of breath, has baseline normal LV function, was on Lasix as an outpatient, will give her a dose of Lasix and I will repeat chest x-ray. Patient had previous pleural effusion noted on her x-ray, started back on torsemide, I will change the dose to once daily and monitor tolerance and response Echocardiogram showed normal LV size, EF 55%, left atrial dilation, moderate to severe tricuspid regurgitation, moderate mitral regurgitation, pulmonary hypertension with PA pressure 50 mmHg Perforated ulcer, status post repair, had complication post surgery with continuous leak. Currently better. Continue to monitor Hypertension, continue current medication and monitor blood pressure Generalized weakness, receiving physical therapy. TC TUCKER MD May 03, 2021 08:23
--- NOTE | 2021-05-03 08:40 | Physical Therapy Daily Note ---
PT Daily Note-Current Subjective Pt. up in recliner, eyes closed, very lethargic. Pt. states she has been up all night urinating and feels horribly weak and dizzy and cant participate as usual. Pt. explains she is going to a NH by van tomorrow. Pt. declines gait past 10- 12 ft stating she feels she would be on the floor. Pt. declines car TRF or bed TRF at this time. "I just cant explain to you how weak and horrible I feel" Pain Location: No Pain Reported Mental Status Patient Orientation: [place] Attachments: Oxygen (1.5L) Transfers SCALE: Activities may be completed with or without assistive devices. 4-Uohhgwpwsd-qiulgvb completes the activity by him/herself with no assistance from a helper. 5-Set-up or Clean-up Assistance-helper sets up or cleans up; patient completes activity. [place] assists only prior to or following the activity. 4-Supervision or Touching Assistance-helper provides verbal cues and/or touching/steadying and/or contact guard assistance as patient completes activity. Assistance may be provided throughout the activity or intermittently. 3-Partial/Moderate Assistance-helper does LESS THAN HALF the effort. [place] lifts, holds or supports trunk or limbs, but provides less than half the effort. 2-Substantial/Maximal Assistance-helper does MORE THAN HALF the effort. [place] lifts or holds trunk or limbs and provides more than half the effort. 4-Ihtkkfcgo-aksvir does ALL the effort. Patient does none of the effort to complete the activity. Or, the assistance of 2 or more helpers is required for the patient to complete the activity. If activity was not attempted, code reason: 7-Patient Refused. 9-Not Applicable-not attempted and the patient did not perform the activity before the current illness, exacerbation or injury. 10-Not Attempted due to Environmental Limitations-(lack of equipment, weather restraints, etc.). 88-Not Attempted due to Medical Conditions or Safety Concerns. Sit to Stand (QC): 4 Chair/Fyq-uk-Lfjgg Xfer(QC): 4 Toilet Transfer (QC): 4 Pt. using lift recline chair and raised BSC for toileting making sit to stand somewhat easier Gait Training Does the Patient Walk?: Yes Walk 10 feet (QC): 4 Gait Persons Needed: 1 Gait Assistive Device: FWW pt. very slow, dyspneic with gait O2 at 1.5 L with sats at 90% HR 125 after activity, O2 quickly recovers to 95%, HR 100. Pt. can usually walk to bthrm in her room, approx 12 ft to and from but declines this morning requesting the [facility] Exercises Supine Ex: Ankle pumps, Quad Set, Glut sets, Heel Slides, Scooting (up in reclienr), Hip abd/add Supine Reps: 15 Seated Therapy Exercises: Sit to stand, Long arc quads Seated Reps: 15 Assessment Current Status: Fair Progress declined functional mobility, increased weakness, poor activity tolerance. malaise PT Short Term Goals Short Term Goals Time Frame: Apr 27, 2021 Roll Left & Right: 6 Sit to lyin Lying to sitting on side of be: 4 Sit to stand: 3 Chair/aqq-fx-ixrog transfer: 4 Walk 10 feet: 4 Walk 50 feet with two turns: 3 PT Long-Term Goals Long-Term Goals PT Long-Term Goals Time Frame: May 11, 2021 Roll Left & Right (QC): 6 Sit to Lying (QC): 4 Lying-Sitting on Side/Bed(QC): 5 Sit to Stand (QC): 4 Chair/Sku-iy-Qsmwe Xfer(QC): 5 Toilet Transfer (QC): 5 Car Transfer (QC): 4 Does the Patient Walk: Yes Walk 10 feet (QC): 4 Walk 50ft with 2 Turns (QC): 4 Walk 150 ft (QC): 4 Walking 10ft on Uneven Surface: 4 1 Step (curb) (QC): 4 4 Steps (QC): 4 12 Steps (QC): 88 Picking up an Object (QC): 4 Wheel 50 feet with 2 turns (QC: 9 Wheel 150 feet: 9 PT Plan Treatment/Plan Treatment Plan: Continue Plan of Care Treatment Plan: Bed Mobility, Education, Functional Activity Karley, Functional Strength, Group Therapy, Gait, Safety, Therapeutic Exercise, Transfers Treatment Duration: May 11, 2021 Frequency: At least 5 of 7 days/Wk (IRF) Estimated Hrs Per Day: 1.5 hours per day Patient and/or Family Agrees t: Yes Safety Risks/Education Patient Education: Gait Training, Transfer Techniques, Correct Positioning, Disease Process, Safety Issues Teaching Recipient: Patient Teaching Methods: Demonstration, Discussion Response to Teaching: Reinforcement Needed Time/GCodes Time In: 800 Time Out: 845 Total Billed Treatment Time: 45 Total Billed Treatment 1,EX20m,FA25m SUMAYA FLORES DRILLING PLANT OPERATOR May 03, 2021 08:40
[2021-05-03] MEDS: ALLOPURINOL 100 MG (ZYLOPRIM) TAB PO SCH (08:53)
[2021-05-03] MEDS: PIOGLITAZONE 30MG (ACTOS) TAB PO SCH (08:53)
[2021-05-03] MEDS: TORSEMIDE 20 MG (DEMADEX) TAB PO SCH (08:53)
[2021-05-03] MEDS: DOCUSATE SODIUM 100 MG (COLACE) CAP PO SCH ×2 (08:54→21:00)
[2021-05-03] MEDS: SENNA W/DOCUSATE (SENOKOT S) TABLET PO SCH ×2 (08:54→21:00)
[2021-05-03] MEDS: polyethylene glycoL POWDER 17 GM (MIRALAX) PACK PO SCH ×2 (08:54→21:00)
[2021-05-03] MEDS: DICLOFENAC 1% GEL 100 GM (VOLTAREN) TUBE TOP SCH ×4 (08:55→21:00)
[2021-05-03] MEDS: EUCERIN CREAM 4 OZ JAR (HYDROCERIN) TP SCH ×2 (08:55→21:00)
--- NOTE | 2021-05-03 10:24 | Occupational Ther Daily Note ---
OT Current Status-Daily Note Subjective Pt up in recliner, states she is not feeling well today. Mental Status/Objective Patient Orientation: Person, Place, Time, Situation Attachments: Oxygen ADL-Treatment Therapy Code Descriptions/Definitions Functional [place] Measure: 0=Not Assessed/NA 4=Minimal Assistance 1=Total Assistance 5=Supervision or Setup 2=Maximal Assistance 6=Modified [place] 3=Moderate Assistance 7=Complete IndependenceSCALE: Activities may be completed with or without assistive devices. 0-Guicqpdfkz-osmuwhx completes the activity by him/herself with no assistance from a helper. 5-Set-up or Clean-up Assistance-helper sets up or cleans up; patient completes activity. [place] assists only prior to or following the activity. 4-Supervision or Touching Assistance-helper provides verbal cues and/or touching/steadying and/or contact guard assistance as patient completes activity. Assistance may be provided throughout the activity or intermittently. 3-Partial/Moderate Assistance-helper does LESS THAN HALF the effort. [place] lifts, holds or supports trunk or limbs, but provides less than half the effort. 2-Substantial/Maximal Assistance-helper does MORE THAN HALF the effort. [place] lifts or holds trunk or limbs and provides more than half the effort. 1-Rjnmkclbl-edldic does ALL the effort. Patient does none of the effort to complete the activity. Or, the assistance of 2 or more helpers is required for the patient to complete the activity. If activity was not attempted, code reason: 7-Patient Refused. 9-Not Applicable-not attempted and the patient did not perform the activity before the current illness, exacerbation or injury. 10-Not Attempted due to Environmental Limitations-(lack of equipment, weather restraints, etc.). 88-Not Attempted due to Medical Conditions or Safety Concerns. Eating (QC): 6 (IND with meals per pt report) Oral Hygiene (QC): 6 (seated) Shower/Bathe Self (QC): 4 (CGA in stand to wash buttocks and periarea. Pt completed sponge bath seated, able to wash/dry all parts.) Upper Body Dressing (QC): 5 (set up with chain puller nightgown) Lower Body Dressing (QC): 3 (Min A with pant hike. Pt able to thread using AE) On/Off Footwear: 3 (Min A overall. OT donned acewraps. Pt able to don gripper socks using AE, min A.) Toileting Hygiene (QC): 3 (Pt able to manage pants down and perform hygiene. Min A with pant hike.) Toilet Transfer (QC): 3 (CGA onto BSC, Min A from BSC.) Other Treatment Pt seated in recliner, agreeable to OT tx. Pt performed sit to stand from elevated lift chair, CGA. [place] transferred to [facility] using FWW. Pt completed toileting, then transferred to w/c. Pt sat at sink to complete sponge bath and dressing. Pt ordered her meals over phone, independently. OT assisted pt to therapy gym. OT tx in order to increase BUE fine motor strength and coordination. Pt removed beads from heavy resistance theraputty, able to locate all beads, 1 VC. Pt propelled w/c back to her room, transferred to [facility], completed toileting, then transferred to recliner. OT provided pt with moderate resistance theraputty, and educated on completing after discharge to continue fine motor strengthening, she verbalized understanding. Post tx, pt in recliner, call light in reach and all needs met. Education OT Patient Education: Correct positioning, Energy conservation, Exercise program, Modified ADL techniques, Progress toward Goal/Update tx plan, Purpose of tx/functional activities, Rehab process Teaching Recipient: Patient Teaching Methods: Discussion Response to Teaching: Verbalize Understanding OT Short Term Goals Short Term Goals Time Frame: May 05, 2021 Toileting hygiene: 3 Shower/bathe self: 3 Lower body dressin Putting on/taking off footwear: 3 OT Senior Living Goals Senior Living Goals Time Frame: May 14, 2021 Eating (QC): 6 (met) Oral Hygiene (QC): 6 (met) Toileting Hygiene (QC): 6 (not met) Shower/Bathe Self (QC): 5 (not met) Upper Body Dressing (QC): 5 (met) Lower Body Dressing (QC): 4 (not met) On/Off Footwear (QC): 4 (not met) Additional Goals: 1-Demonstrate ADL Tasks, 2-Verbalize Understanding, 3- ImproveStrength/Karley 1=Demonstrate adherence to instructed precautions during ADL tasks. 2=Patient will verbalize/demonstrate understanding of assistive device s/modifications for ADL. 3=Patient will improve strength/tolerance for activity to enable patient to perform ADL's. OT Education/Plan Problem List/Assessment Assessment: Decreased Activ Tolerance, Decreased UE Strength, Impaired Funct Balance, Impaired I ADL's, Impaired Self-Care Skills Discharge Recommendations Plan/Recommendations: Continue POC Treatment Plan/Plan of Care Patient would benefit from OT for education, treatment and training to promote independence in ADL's, mobility, safety and/or upper extremity function for ADL's. Plan of Care: ADL Retraining, Functional Mobility, Group Exercise/Act as Ind, UE Funct Exercise/Act Treatment Duration: May 14, 2021 Frequency: At least 5 of 7 days/Wk (IRF) Estimated Hrs Per Day: 1.5 hours per day Agreement: Yes Rehab Potential: Good Time/GCodes Start Time: 09:15 Stop Time: 10:45 Total Time Billed (hr/min): 90 Billed Treatment Time 1, ADL 4 (60'), FA 2 (30') VANNESA PATEL OT May 03, 2021 10:24
--- NOTE | 2021-05-03 13:56 | Physical Therapy Daily Note ---
PT Daily Note-Current Subjective Pt. up in recliner. States she hopes to do a little bit more this aftn than she did this morning. States she is having difficulty pinning down her exact plans for DC and transport tomorrow. c/o fatigue and requests several rest breaks Pain Location: No Pain Reported Mental Status Patient Orientation: Normal For Age Transfers SCALE: Activities may be completed with or without assistive devices. 7-Uuqjzkvsto-vrcjzhx completes the activity by him/herself with no assistance from a helper. 5-Set-up or Clean-up Assistance-helper sets up or cleans up; patient completes activity. [place] assists only prior to or following the activity. 4-Supervision or Touching Assistance-helper provides verbal cues and/or touching/steadying and/or contact guard assistance as patient completes activity. Assistance may be provided throughout the activity or intermittently. 3-Partial/Moderate Assistance-helper does LESS THAN HALF the effort. [place] lifts, holds or supports trunk or limbs, but provides less than half the effort. 2-Substantial/Maximal Assistance-helper does MORE THAN HALF the effort. [place] lifts or holds trunk or limbs and provides more than half the effort. 3-Cgdzccgsg-lazvro does ALL the effort. Patient does none of the effort to complete the activity. Or, the assistance of 2 or more helpers is required for the patient to complete the activity. If activity was not attempted, code reason: 7-Patient Refused. 9-Not Applicable-not attempted and the patient did not perform the activity before the current illness, exacerbation or injury. 10-Not Attempted due to Environmental Limitations-(lack of equipment, weather restraints, etc.). 88-Not Attempted due to Medical Conditions or Safety Concerns. sit to stands from higher surfaces CGA recliner and toilet Gait Training Does the Patient Walk?: Yes Walk 10 feet (QC): 5 Gait Persons Needed: 1 Gait Assistive Device: FWW pt. fatigued and c/o SOB after 12 ft gait x 2 Exercises Supine Ex: Bridging, Ankle pumps, Quad Set, Glut sets, Heel Slides, Short Arc Quads, Scooting (up in reclined recliner), Straight leg raise, Hip abd/add Supine Reps: 20 Treatments very easily fatigued and dyspneic, O2 sats >90 % but pt. very fatigued. TRFs, gait , toiletd with assist pants up down Assessment Current Status: Fair Progress weak, poor activity tolerance PT Short Term Goals Short Term Goals Time Frame: Apr 27, 2021 Roll Left & Right: 6 Sit to lyin Lying to sitting on side of be: 4 Sit to stand: 3 Chair/fwr-dg-ubzyz transfer: 4 Walk 10 feet: 4 Walk 50 feet with two turns: 3 PT Alf Goals Alf Goals PT Piercing Machine Operator Goals Time Frame: May 11, 2021 Roll Left & Right (QC): 6 Sit to Lying (QC): 4 Lying-Sitting on Side/Bed(QC): 5 Sit to Stand (QC): 4 Chair/Igk-bb-Mqeql Xfer(QC): 5 Toilet Transfer (QC): 5 Car Transfer (QC): 4 Does the Patient Walk: Yes Walk 10 feet (QC): 4 Walk 50ft with 2 Turns (QC): 4 Walk 150 ft (QC): 4 Walking 10ft on Uneven Surface: 4 1 Step (curb) (QC): 4 4 Steps (QC): 4 12 Steps (QC): 88 Picking up an Object (QC): 4 Wheel 50 feet with 2 turns (QC: 9 Wheel 150 feet: 9 PT Plan Treatment/Plan Treatment Plan: Continue Plan of Care Treatment Plan: Bed Mobility, Education, Functional Activity Karley, Functional Strength, Group Therapy, Gait, Safety, Therapeutic Exercise, Transfers Treatment Duration: May 11, 2021 Frequency: At least 5 of 7 days/Wk (IRF) Estimated Hrs Per Day: 1.5 hours per day Patient and/or Family Agrees t: Yes Safety Risks/Education Patient Education: Gait Training, Transfer Techniques, Correct Positioning, Disease Process, Safety Issues Teaching Recipient: Patient Teaching Methods: Demonstration, Discussion Response to Teaching: Verbalize Understanding, Return Demonstration, Reinforcement Needed Time/GCodes Time In: 1315 Time Out: 1400 Total Billed Treatment Time: 45 Total Billed Treatment 1,FA25m,EX20m SUMAYA FLORES LEGAL SERVICE SPECIALIST May 03, 2021 13:56
[2021-05-03] MEDS: warFARin 5 MG (COUMADIN) TAB PO SCH (17:16)
[2021-05-03 19:42] VITALS: BP 106/93
[2021-05-03] MEDS ORDERED: DICL100G13 TOP (21:06)
[2021-05-03] MEDS ORDERED: WRF5T PO (21:06)
[2021-05-03] MEDS ORDERED: MTP25TSR PO (21:06)
[2021-05-03] MEDS ORDERED: HUM100VI15 SQ (21:06)
[2021-05-03] MEDS ORDERED: DILT180C85 PO (21:06)
--- NOTE | 2021-05-03 21:07 | Discharge Inst-Skilled Nursing ---
Discharge Inst-Skilled NF Reconcile Patient Problems Problems Reviewed?: Yes Patient Instructions Patient Problems: Debility Goal: Return home Consult/Follow Up/Orders Follow Up Appt.: PCP 2 weeks Skilled NF Admit to: Certification (SNF) I certify that SNF services are required to be given on an inpatient basis because of the above named patient's need for [facility] care on a continuing basis for the conditions(s) for which he/she was receiving inpatient hospital services prior to his/her transfer to the SNF. [facility] Facility Order: Nursing Services, Tennis Court Attendant-Evaluate & Treat, Physical Therapy-Evaluate & Treat Oxygen Delivery Method: Nasal Cannula Discharge Diet: ADA Diet Daily Activity as Tolerated: Yes Resuscitation Status: Full Code New & Resume Previous Orders New Medications: Diclofenac Sodium (Diclofenac Sodium) 100 Gm Gel..gram. 0 GM TOP QID for 90 Days, TUBE Diltiazem HCl (Diltiazem 24Hr ER) 180 Mg Cap.er.24h 360 MG PO DAILY for 90 Days, CAP Metoprolol Succinate (Metoprolol Succinate) 25 Mg Tab.er.24h 25 MG PO DAILY for 90 Days, TAB Warfarin Sodium (Jantoven) 5 Mg Tablet 5 MG PO DAILY@1800 for 90 Days, TAB Changed Medications: Insulin NPH Hum/Reg Insulin Hm (Novolin 70-30 100 Unit/ml Vial) 100 Unit/1 Ml Vial 5 UNIT SQ BID for 90 Days, EA (Changed from: 55 UNIT) Continued Medications: Allopurinol (Allopurinol) 100 Mg Tablet 100 MG PO DAILY, TAB Atorvastatin Calcium (Atorvastatin Calcium) 20 Mg Tablet 20 MG PO HS, TAB Pioglitazone HCl (Actos) 30 Mg Tablet 30 MG PO DAILY, TAB Spironolactone (Spironolactone) 50 Mg Tablet 50 MG PO DAILY, TAB Torsemide (Torsemide) 20 Mg Tablet 30 MG PO BID TAKES 1 & (20MG) TABS Discontinued Medications: Diltiazem HCl (Cardizem Cd) 120 Mg Cap.er.24h 120 MG PO DAILY, CAP Metoprolol Tartrate (Metoprolol Tartrate) 100 Mg Tablet 100 MG PO BID, TAB Warfarin Sodium (Warfarin Sodium) 5 Mg Tablet 5 MG PO [place],MO,FR,SA, TAB Warfarin Sodium (Warfarin Sodium) 5 Mg Tablet 2.5 MG PO ,,MON, TAB TAKES OF A 5MG TAB Shanna Fairchild May 03, 2021 21:06 SHANNA FAIRCHILD DO May 03, 2021 21:07
--- NOTE | 2021-05-04 06:09 | Discharge Summary ---
Diagnosis/Chief Complaint Date of Admission Apr 20, 2021 at 10:30 Date of Discharge Discharge Date: May 04, 2021 Discharge Diagnosis Assessment: Critical illness myopathy Chronic atrial fibrillation not rate controlled consulting Dr. Marshall Urinary retention now resolved ADAIR drain in place consulting Dr. Gamez Subtherapeutic INR 1.5 Coumadin anticoagulation Plan: Supportive care Rehab protocol Consult Dr. Gamez Consult Dr. Marshall 04/21/2021: Supportive care Appreciate cardiology Appreciate general surgery 04/22/2021: Wean oxygen Supportive care 04/23/2021: Supportive care Wean oxygen 04/24/2021: Diclofenac gel Monitor INR Wrap legs 04/25/2021: Supportive care Wrap legs 04/26/21: Monitor INR Supportive care 04/27/2021: Supportive care Increase meds for rate control of A. fib 04/28/21: Monitor closely DC next week 04/29/2021: Supportive care Monitor INR 04/30/2021: prison on Monday05/01/21: Advanced age NHP 05/02/21: Cardiology appreciated Diuresis 05/03/2021: DC to nursing tomorrow (1) Gastric ulcer with perforation (2) Atrial fibrillation (3) Warfarin anticoagulation (4) Urinary retention (5) Diabetes (6) Myopathy Discharge Summary Discharge Physical Examination Allergies: Coded Allergies: Penicillins (Verified Allergy, Unknown, 04/20/21) Sulfa (Sulfonamide Antibiotics) (Verified Allergy, Unknown, 04/20/21) iodine (Verified Allergy, Unknown, 04/20/21) povidone-iodine (Verified Allergy, Unknown, 04/20/21) Vitals & I&Os Vital Signs Date Time Temp Pulse Resp B/P (MAP) Pulse Ox O2 Delivery O2 Flow Rate FiO2 05/04/21 11:20 36.4 97 16 123/66 95 Nasal Cannula 1.50 General Appearance: Alert, Oriented X3, Cooperative Respiratory: Clear to Auscultation Cardiovascular: Regular Rate Psych/Mental Status: Mental Status NL Hospital Course Was the Problem List Reviewed?: Yes Hospital course: Pt had an uneventful lengthy hospital course for 15 days before [facility]. She came to us from [place] with severe abdominal surgery critical illness resulting in slow recovery. She received oxygen supplementation and cardiology managed the diuresis. Overall Pt did well but she needed 24/7 supervision and she was discharged to a penitentiary. Labs (last 24 hrs) Laboratory Tests 04/21/21 05:39: White Blood Count 6.2, Red Blood Count 4.28, Hemoglobin 9.3L, Hematocrit 30L, Mean Corpuscular Volume 71L, Mean Corpuscular Hemoglobin 22L, Mean Corpuscular Hemoglobin Concent 31L, Red Cell Distribution Width 26.5H, Platelet Count 363, Mean Platelet Volume 10.0, Immature Granulocyte % (Auto) 0, Neutrophils (%) (Auto) 65, Lymphocytes (%) (Auto) 10L, Monocytes (%) (Auto) 11, Eosinophils (%) (Auto) 12H, Basophils (%) (Auto) 1, Neutrophils # (Auto) 4.0, Lymphocytes # (Auto) 0.6L, Monocytes # (Auto) 0.7, Eosinophils # (Auto) 0.7H, Basophils # (Auto) 0.1, Immature Granulocyte # (Auto) 0.0, Prothrombin Time 18.5H, INR Comment 1.5H, Sodium Level 137, Potassium Level 4.1, Chloride Level 100, Carbon Dioxide Level 25, Anion Gap 12, Blood Urea Nitrogen 38H, Creatinine 0.99, Estimat Glomerular Filtration Rate 54, BUN/Creatinine Ratio 38, Glucose Level 137H, Calcium Level 8.9, Corrected Calcium 9.9, Iron Level 18L, Total Bilirubin 0.6, Aspartate Amino Transf (AST/SGOT) 19, Alanine Aminotransferase (ALT/SGPT) 10, Alkaline Phosphatase 141H, B-Type Natriuretic Peptide 790.3H, Total Protein 5.9L, Albumin 2.7L 04/22/21 05:54: Prothrombin Time 18.8H, INR Comment 1.5H 04/23/21 05:30: Prothrombin Time 18.6H, INR Comment 1.5H 04/24/21 05:55: Prothrombin Time 19.5H, INR Comment 1.6H 04/25/21 06:05: Prothrombin Time 20.7H, INR Comment 1.7H 04/26/21 05:15: Prothrombin Time 21.1H, INR Comment 1.8H, White Blood Count 5.5, Red Blood Count 4.30, Hemoglobin 9.5L, Hematocrit 31L, Mean Corpuscular Volume 72L, Mean Corpuscular Hemoglobin 22L, Mean Corpuscular Hemoglobin Concent 31L, Red Cell Distribution Width 26.8H, Platelet Count 408H, Mean Platelet Volume 10.1, Immature Granulocyte % (Auto) 0, Neutrophils (%) (Auto) 62, Lymphocytes (%) (Auto) 13, Monocytes (%) (Auto) 10, Eosinophils (%) (Auto) 13H, Basophils (%) (Auto) 1, Neutrophils # (Auto) 3.4, Lymphocytes # (Auto) 0.7L, Monocytes # (Auto) 0.6, Eosinophils # (Auto) 0.7H, Basophils # (Auto) 0.1, Immature Granulocyte # (Auto) 0.0, Neutrophils % (Manual) 71, Lymphocytes % (Manual) 8, Monocytes % (Manual) 6, Eosinophils % (Manual) 14, Band Neutrophils 1, Hypochromasia SLIGHT, Microcytosis MODERATE, Target Cells SLIGHT, [place] Cells SLIGHT, Elliptocytes SLIGHT, Sodium Level 138, Potassium Level 4.3, Chloride Level 103, Carbon Dioxide Level 24, Anion Gap 11, Blood Urea Nitrogen 38H, Creatinine 1.07, Estimat Glomerular Filtration Rate 49, BUN/Creatinine Ratio 36, Glucose Level 136H, Calcium Level 9.1, Corrected Calcium 10.0, Total Bilirubin 0.5, Aspartate Amino Transf (AST/SGOT) 20, Alanine Aminotransferase (ALT/SGPT) 14, Alkaline Phosphatase 144H, Total Protein 6.4, Albumin 2.9L 04/27/21 06:01: Prothrombin Time 20.9H, INR Comment 1.8H 04/28/21 05:24: Prothrombin Time 20.6H, INR Comment 1.7H 04/29/21 06:26: Prothrombin Time 21.1H, INR Comment 1.8H 04/30/21 05:30: Prothrombin Time 20.8H, INR Comment 1.7H 05/01/21 06:08: Prothrombin Time 22.9H, INR Comment 2.0H 05/02/21 06:05: White Blood Count 5.2, Red Blood Count 4.46, Hemoglobin 9.9L, Hematocrit 33L, Mean Corpuscular Volume 74L, Mean Corpuscular Hemoglobin 22L, Mean Corpuscular Hemoglobin Concent 30L, Red Cell Distribution Width 27.4H, Platelet Count 385, Mean Platelet Volume 9.9, Sodium Level 137, Potassium Level 4.8, Chloride Level 105, Carbon Dioxide Level 22, Anion Gap 10, Blood Urea Nitrogen 40H, Creatinine 1.18, Estimat Glomerular Filtration Rate 44, BUN/Creatinine Ratio 34, Glucose Level 148H, Calcium Level 9.1, Magnesium Level 2.6H, B-Type Natriuretic Peptide 767.4H 05/03/21 05:48: White Blood Count 4.9, Red Blood Count 4.44, Hemoglobin 9.8L, Hematocrit 32L, Mean Corpuscular Volume 73L, Mean Corpuscular Hemoglobin 22L, Mean Corpuscular Hemoglobin Concent 30L, Red Cell Distribution Width 27.5H, Platelet Count 328, Mean Platelet Volume 10.3, Immature Granulocyte % (Auto) 0, Neutrophils (%) (Auto) 70, Lymphocytes (%) (Auto) 11L, Monocytes (%) (Auto) 10, Eosinophils (%) (Auto) 9, Basophils (%) (Auto) 1, Neutrophils # (Auto) 3.4, Lymphocytes # (Auto) 0.5L, Monocytes # (Auto) 0.5, Eosinophils # (Auto) 0.4H, Basophils # (Auto) 0.1, Immature Granulocyte # (Auto) 0.0, Percent Immature Platelet Fraction 2.3, Prothrombin Time 28.5H, INR Comment 2.6H, Sodium Level 138, Potassium Level 5.0, Chloride Level 105, Carbon Dioxide Level 22, Anion Gap 11, Blood Urea Nitrogen 39H, Creatinine 1.19, Estimat Glomerular Filtration Rate 44, BUN/Creatinine Ratio 33, Glucose Level 136H, Calcium Level 9.3, Corrected Calcium 9.9, Total Bilirubin 0.6, Aspartate Amino Transf (AST/SGOT) 27, Alanine Aminotransferase (ALT/SGPT) 13, Alkaline Phosphatase 147H, Total Protein 7.0, Albumin 3.2 Pending Labs Laboratory Tests 04/21/21 05:39: White Blood Count 6.2, Red Blood Count 4.28, Hemoglobin 9.3, Hematocrit 30, Mean Corpuscular Volume 71, Mean Corpuscular Hemoglobin 22, Mean Corpuscular Hemoglobin Concent 31, Red Cell Distribution Width 26.5, Platelet Count 363, Mean Platelet Volume 10.0, Immature Granulocyte % (Auto) 0, Neutrophils (%) (Auto) 65, Lymphocytes (%) (Auto) 10, Monocytes (%) (Auto) 11, Eosinophils (%) (Auto) 12, Basophils (%) (Auto) 1, Neutrophils # (Auto) 4.0, Lymphocytes # (Auto) 0.6, Monocytes # (Auto) 0.7, Eosinophils # (Auto) 0.7, Basophils # (Auto) 0.1, Immature Granulocyte # (Auto) 0.0, Prothrombin Time 18.5, INR Comment 1.5, Sodium Level 137, Potassium Level 4.1, Chloride Level 100, Carbon Dioxide Level 25, Anion Gap 12, Blood Urea Nitrogen 38, Creatinine 0.99, Estimat Glomerular Filtration Rate 54, BUN/Creatinine Ratio 38, Glucose Level 137, Calcium Level 8.9, Corrected Calcium 9.9, Iron Level 18, Total Bilirubin 0.6, Aspartate Amino Transf (AST/SGOT) 19, Alanine Aminotransferase (ALT/SGPT) 10, Alkaline Phosphatase 141, B-Type Natriuretic Peptide 790.3, Total Protein 5.9, Albumin 2.7 04/22/21 05:54: Prothrombin Time 18.8, INR Comment 1.5 04/23/21 05:30: Prothrombin Time 18.6, INR Comment 1.5 04/24/21 05:55: Prothrombin Time 19.5, INR Comment 1.6 04/25/21 06:05: Prothrombin Time 20.7, INR Comment 1.7 04/26/21 05:15: Prothrombin Time 21.1, INR Comment 1.8, White Blood Count 5.5, Red Blood Count 4.30, Hemoglobin 9.5, Hematocrit 31, Mean Corpuscular Volume 72, Mean Corpuscular Hemoglobin 22, Mean Corpuscular Hemoglobin Concent 31, Red Cell Distribution Width 26.8, Platelet Count 408, Mean Platelet Volume 10.1, Immature Granulocyte % (Auto) 0, Neutrophils (%) (Auto) 62, Lymphocytes (%) (Auto) 13, Monocytes (%) (Auto) 10, Eosinophils (%) (Auto) 13, Basophils (%) (Auto) 1, [place] trophils # (Auto) 3.4, Lymphocytes # (Auto) 0.7, Monocytes # (Auto) 0.6, Eosinophils # (Auto) 0.7, Basophils # (Auto) 0.1, Immature Granulocyte # (Auto) 0.0, Neutrophils % (Manual) 71, Lymphocytes % (Manual) 8, Monocytes % (Manual) 6, Eosinophils % (Manual) 14, Band Neutrophils 1, Hypochromasia SLIGHT, Microcytosis MODERATE, Target Cells SLIGHT, [place] Cells SLIGHT, Elliptocytes SLIG HT, Sodium Level 138, Potassium Level 4.3, Chloride Level 103, Carbon Dioxide Level 24, Anion Gap 11, Blood Urea Nitrogen 38, Creatinine 1.07, Estimat Glomerular Filtration Rate 49, BUN/Creatinine Ratio 36, Glucose Level 136, Calcium Level 9.1, Corrected Calcium 10.0, Total Bilirubin 0.5, Aspartate Amino Transf (AST/SGOT) 20, Alanine Aminotransferase (ALT/SGPT) 14, Alkaline Phospha tase 144, Total Protein 6.4, Albumin 2.9 04/27/21 06:01: Prothrombin Time 20.9, INR Comment 1.8 04/28/21 05:24: Prothrombin Time 20.6, INR Comment 1.7 04/29/21 06:26: Prothrombin Time 21.1, INR Comment 1.8 04/30/21 05:30: Prothrombin Time 20.8, INR Comment 1.7 05/01/21 06:08: Prothrombin Time 22.9, INR Comment 2.0 05/02/21 06:05: White Blood Count 5.2, Red Blood Count 4.46, Hemoglobin 9.9, Hematocrit 33, Mean Corpuscular Volume 74, Mean Corpuscular Hemoglobin 22, Mean Corpuscular Hemoglobin Concent 30, Red Cell Distribution Width 27.4, Platelet Count 385, Mean Platelet Volume 9.9, Sodium Level 137, Potassium Level 4.8, Chloride Level 105, Carbon Dioxide Level 22, Anion Gap 10, Blood Urea Nitrogen 40, Creatinine 1.18, Estimat Glomerular Filtration Rate 44, BUN/Creatinine Ratio 34, Glucose Level 148, Calcium Level 9.1, Magnesium Level 2.6, B-Type Natriuretic Peptide 767.4 05/03/21 05:48: White Blood Count 4.9, Red Blood Count 4.44, Hemoglobin 9.8, Hematocrit 32, Mean Corpuscular Volume 73, Mean Corpuscular Hemoglobin 22, Mean Corpuscular Hemoglobin Concent 30, Red Cell Distribution Width 27.5, Platelet Count 328, Mean Platelet Volume 10.3, Immature Granulocyte % (Auto) 0, Neutrophils (%) (Auto) 70, Lymphocytes (%) (Auto) 11, Monocytes (%) (Auto) 10, Eosinophils (%) (Auto) 9, Basophils (%) (Auto) 1, Neutrophils # (Auto) 3.4, Lymphocytes # (Auto) 0.5, Monocytes # (Auto) 0.5, Eosinophils # (Auto) 0.4, Basophils # (Auto) 0.1, Immature Granulocyte # (Auto) 0.0, Percent Immature Platelet Fraction 2.3, Prothrombin Time 28.5, INR Comment 2.6, Sodium Level 138, Potassium Level 5.0, Chloride Level 105, Carbon Dioxide Level 22, Anion Gap 11, Blood Urea Nitrogen 39, Creatinine 1.19, Estimat Glomerular Filtration Rate 44, BUN/Creatinine Ratio 33, Glucose Level 136, Calcium Level 9.3, Corrected Calcium 9.9, Total Bilirubin 0.6, Aspartate Amino Transf (AST/SGOT) 27, Alanine Aminotransferase (ALT/SGPT) 13, Alkaline Phosphatase 147, Total Protein 7.0, Albumin 3.2 Discharge Home Medications: Active Scripts Active Diclofenac Sodium 100 Gm Gel..gram. 0 Gm TOP QID 90 Days Diltiazem 24Hr ER (Diltiazem HCl) 180 Mg Cap.er.24h 360 Mg PO DAILY 90 Days Metoprolol Succinate 25 Mg Tab.er.24h 25 Mg PO DAILY 90 Days Jantoven (Warfarin Sodium) 5 Mg Tablet 5 Mg PO DAILY@1800 90 Days Novolin 70-30 100 Unit/ml Vial (Insulin NPH Hum/Reg Insulin Hm) 100 Unit/1 Ml Vial 5 Unit SQ BID 90 Days Reported Torsemide 20 Mg Tablet 30 Mg PO BID TAKES 1 & (20MG) TABS Spironolactone 50 Mg Tablet 50 Mg PO DAILY Actos (Pioglitazone HCl) 30 Mg Tablet 30 Mg PO DAILY Atorvastatin Calcium 20 Mg Tablet 20 Mg PO HS Allopurinol 100 Mg Tablet 100 Mg PO DAILY Instructions to patient/family Please see electronic discharge instructions given to patient. Diagnosis/Problems Diagnosis/Problems (1) Gastric ulcer with perforation (2) Atrial fibrillation (3) Warfarin anticoagulation (4) Urinary retention (5) Diabetes (6) Myopathy JARON BRANNON DO May 04, 2021 06:09
[2021-05-04 07:29] VITALS: BP 123/66
--- NOTE | 2021-05-04 08:20 | Cardiology Progress Note ---
Subjective Date Seen by Provider: May 04, 2021 Time Seen by Provider: 08:18 Subjective/Events-last exam Patient is doing ADLs. Denies any chest pain or dyspnea. Review of Systems General: No Chills, No Night Sweats, No Fatigue, No Malaise, No Appetite, No Other HEENT: No Head Aches, No Visual Changes, No Eye Pain, No Ear Pain, No Dysphasia, No Sinus Congestion, No Post Nasal Drip, No Sore Throat, No Other Pulmonary: No Dyspnea, No Cough, No Pleuritic Chest Pain, No Other Cardiovascular: No: Chest Pain, Palpitations, Orthopnea, Paroxysmal Noc. Dyspnea, Edema, Lt Headedness, Other Objective-Cardiology Exam Last Set of Vital Signs Vital Signs 05/03/21 05/04/21 21:00 07:29 Temp 36.4 Pulse 97 Resp 16 B/P (MAP) 123/66 (85) Pulse Ox 95 O2 Delivery Nasal Cannula O2 Flow Rate 1.00 I&O Intake and Output 05/04/21 00:00 Intake Total 740 ml Output Total 2250 ml Balance -1510 ml Intake Oral 740 ml Output Urine Total 2250 ml # Urine Diapers 1 # Bowel Movements 1 General: Alert, Oriented X3, Cooperative HEENT: Atraumatic, PERRLA Neck: Supple, No JVD, No Thyromegaly Lungs: Clear to Auscultation, Normal Air Movement Heart: Normal S1, Normal S2, Other (irregularly irregular) Abdomen: Normal Bowel Sounds, Soft Skin: No Rashes, No Significant Lesion Neuro: Normal Speech Psych/Mental Status: Mental Status NL, Mood NL A/P-Cardiology Admission Diagnosis Persistent atrial fibrillation Tachycardia Perforated ulcer Pleural effusion Assessment/Plan Persistent atrial fibrillation, on rate controlling medication, Cardizem increased to 360mg in addition to her Toprol XL. Monitor blood pressure. Maintained on coumadin, INR is 2.6. Shortness of breath, has baseline normal LV function, was on Lasix as an o utpatient, started back on torsemide, continue to monitor tolerance and response Echocardiogram showed normal LV size, EF 55%, left atrial dilation, moderate to severe tricuspid regurgitation, moderate mitral regurgitation, pulmonary hypertension with PA pressure 50 mmHg Perforated ulcer, status post repair, had complication post surgery with continuous leak. Currently better. Continue to monitor Hypertension, continue current medication and monitor blood pressure Generalized weakness, receiving physical therapy. Patient was seen and evaluated with Natalia, examination performed, management plan was discussed, agree with the current scribed note, I made few changes to the note using Italic font Patient was seen at bedside, sitting comfortably, feeling better Tolerating diuretic well Okay for discharge, arrange for follow-up as an outpatient. NATALIA GALLEGOS May 04, 2021 08:20 TC TUCKER MD May 04, 2021 09:15
[2021-05-04] MEDS ORDERED: TORSEMIDE 20 MG (DEMADEX) TAB PO SCH (09:00)
--- NOTE | 2021-05-04 09:20 | Therapy Team Discharge Summary ---
Therapy Discharge Summary Discharge Recommendations Date of Discharge Therapy D/C Recommendations: [facility] (TCU/[facility]) Occupational Therapy Pt admitted to ARU with disuse myopathy. At OF, pt required some assistance with ADLs, primarily with footwear. Upon initial evaluation, pt required set up assistance with eating, independent oral care, max A showering, SBA UE dressing, max A LE dressing, total assist footwear and total assist toileting. OT tx focused on increasing BUE strength and activity tolerance, and increasing safety and independence with ADLs and functional mobility. At discharge, pt was independent wtih eating and oral care, required CGA showering, set up upper body dressing, min A lower body dressing, min A footwear, and min A toileting. Pt made functional progress towards goals, but only attained LTGs for eating, oral care and upper body dressing. Pt to discharge from facility, d/c from OT. Decreased Activ Tolerance, Decreased UE Strength, Impaired Funct Balance, Impaired I ADL's, Impaired Self-Care Skills PT Doctor Of Optometry Goals Doctor Of Optometry Goals PT Doctor Of Optometry Goals Time Frame: May 11, 2021 Roll Left to Right (QC): 6 Sit to Lying (QC): 4 Lying-Sitting on Side/Bed(QC): 5 Sit to Stand (QC): 4 Chair/Jsy-iz-Kjckm Xfer(QC): 5 Car Transfer (QC): 4 Does the Patient Walk: Yes Walk 10 feet (QC): 4 Walk 10ft-Uneven Surface(QC): 4 Walk 50ft with 2 Turns (QC): 4 Walk 150 ft (QC): 4 Wheel 50 feet with 2 turns (QC: 9 1 Step (curb) (QC): 4 4 Steps (QC): 4 12 Steps (QC): 88 Picking up an Object (QC): 4 OT Assisted Goals Assisted Goals Time Frame: May 14, 2021 Eating (FIM): 6 Eating (QC): 6 (met) Oral Hygiene (QC): 6 (met) Shower/Bathe Self (QC): 5 (not met) Upper Body Dressing (QC): 5 (met) Lower Body Dressing (QC): 4 (not met) On/Off Footwear (QC): 4 (not met) Toileting(FIM): 6 Toileting Hygiene (QC): 6 (not met) Toilet/Commode Transfer (QC): 5 Additional Goals: 1-Demonstrate ADL Tasks, 2-Verbalize Understanding, 3- ImproveStrength/Karley 1=Demonstrate adherence to instructed precautions during ADL tasks. 2=Patient will verbalize/demonstrate understanding of assistive devices/modifications for ADL. 3=Patient will improve strength/tolerance for activity to enable patient to perform ADL's. VANNESA PATEL OT May 04, 2021 09:20
[2021-05-04] MEDS: ALLOPURINOL 100 MG (ZYLOPRIM) TAB PO SCH (09:43)
[2021-05-04] MEDS: DOCUSATE SODIUM 100 MG (COLACE) CAP PO SCH (09:43)
[2021-05-04] MEDS: MULTIVIT W/MINERALS TAB (THERAGRAN M) PO SCH (09:44)
[2021-05-04] MEDS: SENNA W/DOCUSATE (SENOKOT S) TABLET PO SCH (09:44)
[2021-05-04] MEDS: PIOGLITAZONE 30MG (ACTOS) TAB PO SCH (09:44)
[2021-05-04] MEDS: polyethylene glycoL POWDER 17 GM (MIRALAX) PACK PO SCH (10:21)
[2021-05-04] MEDS: EUCERIN CREAM 4 OZ JAR (HYDROCERIN) TP SCH (10:22)
[2021-05-04] MEDS: DICLOFENAC 1% GEL 100 GM (VOLTAREN) TUBE TOP SCH (10:22)
[2021-05-04 11:20] VITALS: BP 123/66
--- NOTE | 2021-05-05 15:57 | Therapy Team Discharge Summary ---
Therapy Discharge Summary Discharge Recommendations Date of Discharge May 04, 2021 at 10:45 Therapy D/C Recommendations: [facility] (TCU/[facility]) Physical Therapy Pt. up in recliner, eyes closed, very lethargic. Pt. states she has been up all night urinating and feels horribly weak and dizzy and cant participate as usual. Pt. explains she is going to a NH by van tomorrow. Pt. declines gait past 10- 12 ft stating she feels she would be on the floor. Pt. declines car TRF or bed TRF at this time. "I just cant explain to you how weak and horrible I feel" Occupational Therapy Decreased Activ Tolerance, Decreased UE Strength, Impaired Funct Balance, Impa ired I ADL's, Impaired Self-Care Skills PT Senior Living Goals Senior Living Goals PT Surgical Elastic Knitter Hand Frame Goals Time Frame: May 11, 2021 Roll Left to Right (QC): 6 Sit to Lying (QC): 4 Lying-Sitting on Side/Bed(QC): 5 Sit to Stand (QC): 4 Chair/Hge-vk-Kzjqm Xfer(QC): 5 Car Transfer (QC): 4 Does the Patient Walk: Yes Walk 10 feet (QC): 4 Walk 10ft-Uneven Surface(QC): 4 Walk 50ft with 2 Turns (QC): 4 Walk 150 ft (QC): 4 Wheel 50 feet with 2 turns (QC: 9 1 Step (curb) (QC): 4 4 Steps (QC): 4 12 Steps (QC): 88 Picking up an Object (QC): 4 OT Surgical Elastic Knitter Hand Frame Goals Surgical Elastic Knitter Hand Frame Goals Time Frame: May 14, 2021 Eating (FIM): 6 Eating (QC): 6 (met) Oral Hygiene (QC): 6 (met) Shower/Bathe Self (QC): 5 (not met) Upper Body Dressing (QC): 5 (met) Lower Body Dressing (QC): 4 (not met) On/Off Footwear (QC): 4 (not met) Toileting(FIM): 6 Toileting Hygiene (QC): 6 (not met) Toilet/Commode Transfer (QC): 5 Additional Goals: 1-Demonstrate ADL Tasks, 2-Verbalize Understanding, 3- ImproveStrength/Karley 1=Demonstrate adherence to instructed precautions during ADL tasks. 2=Patient will verbalize/demonstrate understanding of assistive devic es/modifications for ADL. 3=Patient will improve strength/tolerance for activity to enable patient to perform ADL's. MARLENA MILLS PT May 05, 2021 15:57
== END 2021-05-04 10:45 | DRG 92 ==
PROVIDERS: ADMIT Internal Medicine; ATTEND Internal Medicine
DX: G72.81 Critical illness myopathy (principal); I48.19 Other persistent atrial fibrillation; J90 Pleural effusion, not elsewhere classified; I10 Essential (primary) hypertension; E11.40 Type 2 diabetes mellitus with diabetic neuropathy, unspecified; I27.20 Pulmonary hypertension, unspecified; R33.9 Retention of urine, unspecified; M25.511 Pain in right shoulder; I08.1 Rheumatic disorders of both mitral and tricuspid valves; K21.9 Gastro-esophageal reflux disease without esophagitis; E78.00 Pure hypercholesterolemia, unspecified; M19.91 Primary osteoarthritis, unspecified site; M54.9 Dorsalgia, unspecified; M10.9 Gout, unspecified; H54.7 Unspecified visual loss; Z79.4 Long term (current) use of insulin; Z79.01 Long term (current) use of anticoagulants; Z88.0 Allergy status to penicillin; Z88.2 Allergy status to sulfonamides; Z88.8 Allergy status to other drugs, medicaments and biological substances
CPT/HCPCS: 36415; 71046; 80048; 80053; 83540; 83735; 83880; 85007; 85025; 85027; 85610; 93005; 93306; 94760